=== PATIENT | female | born 1955 | race Caucasian/White ===

== ENCOUNTER 2016-11-01 09:47 | Outpatient (CLI) | payer MEDICAID | END 2016-11-01 09:48 | disposition home or self-care (01) | DX: E11.65 Type 2 diabetes mellitus with hyperglycemia (principal) ==

== ENCOUNTER 2017-07-12 08:00 | Outpatient (CLI) | payer MEDICAID ==
[2017-07-12 18:43] LABS: BASOPHILS % (AUTO) 0.4 %; EOSINOPHILS # (AUTO) 0.2 10^3/uL (0.0-0.7); EOSINOPHILS % (AUTO) 2.4 %; HCT - HEMATOCRIT 45.3 % (37.0-47.0); HGB - HEMOGLOBIN 14.8 g/dL (12.0-16.0); LYMPHOCYTES # (AUTO) 2.2 10^3/uL (1.5-3.5); LYMPHOCYTES % (AUTO) 29.8 %; MEAN CORPUSCULAR HEMOGLOBIN 31.3 pg (27.0-31.0); MEAN CORPUSCULAR HGB CONC 32.7 g/dL (32.0-36.0); MEAN CORPUSCULAR VOLUME 95.6 fL (81.0-99.0); MEAN PLATELET VOLUME 8.1 fL (7.9-10.8); MONOCYTES # (AUTO) 0.4 10^3/uL (0.0-1.0); MONOCYTES % (AUTO) 5.8 %; NEUTROPHILS # (AUTO) 4.6 10^3/uL (1.5-6.6); NEUTROPHILS % (AUTO) 61.6 %; NUCLEATED RED BLOOD CELLS AUTO 0.1 /100WBC; RED BLOOD COUNT 4.74 10^6/uL (4.20-5.40); RED CELL DISTRIBUTION WIDTH 14.1 % (12.0-15.0); UNCORRECTED WHITE BLOOD COUNT 7.5 x10^3/uL; WHITE BLOOD COUNT 7.5 x10^3/uL (4.8-10.8)
[2017-07-12 19:06] LABS: ALBUMIN/GLOBULIN RATIO 1.3 (1.0-2.2); BILIRUBIN,TOTAL 0.5 mg/dL (0.2-1.0); BUN - BLOOD UREA NITROGEN 9 mg/dL (6-20); CALCIUM 9.2 mg/dL (8.5-10.3); CARBON DIOXIDE - CO2 26 mmol/L (21-32); CHLORIDE 98 mmol/L (101-111); CHOL/HDL RATIO 5.7 (<4.4); CHOLESTEROL 217 mg/dL; CREATININE 0.8 mg/dL (0.4-1.0); GFR - MDRD 73 (>89); GLUCOSE 318 mg/dL (70-100); HDL CHOLESTEROL 38 mg/dL; LDL/HDL RATIO 3.4 (<4.4); POTASSIUM 3.7 mmol/L (3.5-5.0); SODIUM 134 mmol/L (135-145); TRIGLYCERIDES 257 mg/dL; VLDL CHOLESTEROL 51 mg/dL
== END 2017-07-12 08:01 | disposition home or self-care (01) ==
LOC: LAB.N 08:00
PROVIDERS: ATTEND Nurse Practitioner Gerontology
DX: E11.65 Type 2 diabetes mellitus with hyperglycemia (principal); E78.5 Hyperlipidemia, unspecified; E03.9 Hypothyroidism, unspecified; I10 Essential (primary) hypertension; K74.60 Unspecified cirrhosis of liver
CPT/HCPCS: 36415; 80050; 80061

== ENCOUNTER 2017-10-29 14:56 | Outpatient (CLI) | payer MEDICAID ==
--- NOTE | 2017-10-30 09:06 | XRAY Report ---
TWO VIEW LEFT SHOULDER: 10/29/2017 CLINICAL INDICATION: Pain. FINDINGS: Frontal and scapular Y views of the left shoulder demonstrate no evidence of acute fracture or dislocation. Mild degenerative changes are present, with small osteophytes. No radiopaque foreign body is seen in the soft tissues. IMPRESSION: MILD LEFT SHOULDER OSTEOARTHRITIS. TD: 10/30/2017 09:05
== END 2017-10-29 14:57 | disposition home or self-care (01) ==
LOC: DI.N 14:56
PROVIDERS: ATTEND Nurse Practitioner Gerontology
DX: M19.012 Primary osteoarthritis, left shoulder (principal)

== ENCOUNTER 2017-12-28 12:18 | Emergency (ER) | payer MEDICAID ==
--- NOTE | 2017-12-28 14:16 | ED Physician Documentation ---
History of Present Illness - Stated complaint Stated Complaint: R MIDDLE TOE PX/SWELLING - Chief complaint Chief Complaint: Ext Problem - History obtained from History obtained from: Patient - History of Present Illness Timing: How many weeks ago (1) Pain level max: 8 Pain level now: 8 Improved by: nothing Worsened by: palpation, movement - Additonal information Additional information: Patient is a 62-year-old female who presents to the emergency department with redness and swelling to the right third toe. Has an appointment with podiatry later this week to have the toenail taken care of. Has noticed increased swelling and pain over the past few days. No fevers. She is diabetic. 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 - Present Medications Home Medications: Ambulatory Orders Medication Instructions Recorded Confirmed Albuterol Sulfate [Ventolin Hfa] 18 gm IH DAILY 03/26/13 01/07/15 Azithromycin [Zithromax] 250 mg PO DAILY #6 tablet 03/26/13 01/07/15 Gabapentin [Gralise] 1 each PO DAILY 03/26/13 01/07/15 HYDROcod/ACETAM 5/325 [Vicodin 1 - 2 ea PO Q6H PRN #15 tablet 03/26/13 01/07/15 5/325] Promethazine [Phenergan] 25 - 50 mg PO Q6H PRN #10 tab 03/26/13 01/07/15 metFORMIN [Glucophage] 850 mg PO DAILY 03/26/13 01/07/15 predniSONE [Deltasone] 40 mg PO DAILY 5 Days tablet 03/26/13 01/07/15 predniSONE [Deltasone] 40 mg PO DAILY 5 Days tablet 01/07/15 Albuterol Sulfate [Proventil Hfa 1 - 2 puffs IH Q4H PRN #1 11/23/15 Inhaler] hfa.aer.ad Azithromycin [Zithromax] 250 mg PO DAILY #4 tablet 11/23/15 predniSONE [Deltasone] 60 mg PO DAILY 5 Days tablet 11/23/15 Azithromycin [Zithromax] 250 mg PO DAILY #6 tablet 07/21/16 Clotrimazole [Clotrimazole 3] 1 applic VG QPM #7 cream.appl 07/21/16 guaiFENesin/CODEINE [Robitussin AC] 5 - 10 ml PO Q6H PRN #120 udc 07/21/16 Clindamycin HCl [Clindamycin 300MG 300 mg PO Q6H #28 capsule 12/28/17 CAP] Hydrocodone/Acetaminophen 1 - 2 each PO Q6H PRN #10 tablet 12/28/17 [Hydrocodon-Acetaminophen 5-325] - Allergies Allergies/Adverse Reactions: Allergies Allergy/AdvReac Type Severity Reaction Status Date / Time ampicillin [Ampicillin] Allergy Intermediate Rash Verified 11/23/15 13:14 morphine Allergy Intermediate Rash Verified 11/23/15 13:14 acetaminophen [From Percocet] Allergy Rash Verified 11/23/15 13:14 oxycodone HCl * Allergy Rash Verified 11/23/15 13:14 [From Percocet] Penicillins Allergy Rash Verified 11/23/15 13:14 Sulfa (Sulfonamide Allergy Rash Verified 11/23/15 13:14 Antibiotics) tetracycline [Tetracycline] Allergy Rash Verified 11/23/15 13:14 - Social History Does the pt smoke?: Yes Smoking Status: Current every day smoker Does the pt drink ETOH?: Yes Does the pt have substance abuse?: No - Immunizations Immunizations are current?: Yes PD ED PE NORMAL - Vitals Vital signs reviewed: Yes - General General: Alert and oriented X 3 - Derm Derm: Warm and dry - Extremities Extremities: Other (R 3rd toe, mild cellulitis, distal lateral aspect with a 1x1cm abscess. NVI) - Neuro Neuro: Alert and oriented X 3 - Psych Psych: Normal mood, Normal affect Results - Vitals Vitals: Vital Signs - 24 hr 12/28/17 12/28/17 12:22 15:22 Temperature 36.5 C 36.6 C Heart Rate 107 H 90 Respiratory 20 20 Rate Blood Pressure 143/89 H 141/87 H O2 Saturation 97 97 Oxygen O2 Source Room air - Labs Labs: Microbiology 12/28/17 14:10 Wound Culture - Preliminary Abscess Procedures - Abscess I&D (location) R 3rd toe Preparation: Alcohol Incision: Incised with scalpel, Purulent drainage, Culture obtained Other: Pt tolerated well, Dressing applied, Antibiotic prescribed PD MEDICAL DECISION MAKING - ED course Complexity details: considered differential, d/w patient ED course: Patient is a 62-year-old female who presents to the emergency department with mild cellulitis of the right third toe as well as an abscess. This was incised and drained. Tolerated well. Will prescribe antibiotics and have her follow- up closely with her analytical consultant. Patient counseled regarding signs and symptoms for which I believe and urgent re-evaluation would be necessary. Patient with good understanding of and agreement to plan and is comfortable going home at this time This document was made in part using voice recognition software. While efforts are made to proofread this document, sound alike and grammatical errors may occur. - Sepsis Event Vital Signs: Vital Signs - 24 hr 12/28/17 12/28/17 12:22 15:22 Temperature 36.5 C 36.6 C Heart Rate 107 H 90 Respiratory 20 20 Rate Blood Pressure 143/89 H 141/87 H O2 Saturation 97 97 Oxygen O2 Source Room air Departure - Departure Disposition: 01 Home, Self Care Clinical Impression: Abscess Cellulitis Qualifiers: Site of cellulitis: extremity Site of cellulitis of extremity: toe Laterality: right Qualified Code(s): L03.031 - Cellulitis of right toe Condition: Good Instructions: ED Abscess IandD, ED Infec Skin Cellulitis Follow-Up: Kayla Betancourt ARNP [Primary Care Provider] - Barbara Palumbo DPM [Provider Admit Priv/Credential] - Within 3 Days (for wound check) Prescriptions: Clindamycin HCl [Clindamycin 300MG CAP] 300 mg PO Q6H #28 capsule Hydrocodone/Acetaminophen [Hydrocodon-Acetaminophen 5-325] 1 - 2 each PO Q6H PRN #10 tablet PRN Reason: pain Comments: Take all antibiotics until gone. Return if you worsen. Make sure to follow-up with Dr. Palumbo as instructed. Do not drink alcohol or drive while on narcotic pain medicine. Note that many narcotic pain relievers also contain tylenol/acetaminophen. Please ensure that your total dose of acetaminophen from all sources does not exceed 3 grams (3000mg) per day. You may constipated on this medication, take a stool softener such as "Colace" twice a day while you are on it. Also recommend a [id number] laxative such as senna or MiraLAX any day that you do not have a bowel movement. If you received narcotic pain medication in the emergency department, do not drive or operate machinery for the next 24 hours. Discharge Date/Time: 12/28/17 15:00
[2017-12-28 15:23] VITALS: BP 141/87
== END 2017-12-28 15:00 | disposition home or self-care (01) ==
LOC: ED 12:18
DX: L02.611 Cutaneous abscess of right foot (principal); L03.031 Cellulitis of right toe; I10 Essential (primary) hypertension; E11.9 Type 2 diabetes mellitus without complications; F17.200 Nicotine dependence, unspecified, uncomplicated; Z79.4 Long term (current) use of insulin
CPT/HCPCS: 10060; 87070; 87077; 87181; 87205; 99283

== ENCOUNTER 2018-02-12 09:56 | Outpatient (CLI) | payer MEDICAID ==
[2018-02-12 12:29] LABS: BASOPHILS % (AUTO) 0.4 %; EOSINOPHILS # (AUTO) 0.2 10^3/uL (0.0-0.7); EOSINOPHILS % (AUTO) 1.9 %; HGB - HEMOGLOBIN 14.9 g/dL (12.0-16.0); LYMPHOCYTES # (AUTO) 2.7 10^3/uL (1.5-3.5); LYMPHOCYTES % (AUTO) 25.1 %; MEAN CORPUSCULAR HEMOGLOBIN 31.5 pg (27.0-31.0); MEAN CORPUSCULAR HGB CONC 33.3 g/dL (32.0-36.0); MEAN CORPUSCULAR VOLUME 94.7 fL (81.0-99.0); MEAN PLATELET VOLUME 7.7 fL (7.9-10.8); MONOCYTES # (AUTO) 0.5 10^3/uL (0.0-1.0); MONOCYTES % (AUTO) 4.6 %; NEUTROPHILS # (AUTO) 7.4 10^3/uL (1.5-6.6); PLT - PLATELET COUNT 239 10^3/uL (130-450); RED BLOOD COUNT 4.72 10^6/uL (4.20-5.40); RED CELL DISTRIBUTION WIDTH 13.8 % (12.0-15.0); WHITE BLOOD COUNT 10.8 x10^3/uL (4.8-10.8)
[2018-02-12 13:35] LABS: HB2 TOTAL 15.7 g/dL; HEMOGLOBIN A1C 1.29 g/dL; HEMOGLOBIN A1C % 9.7 % (4.6-6.2)
[2018-02-12 14:20] LABS: ALBUMIN 3.8 g/dL (3.2-5.5); ALBUMIN/GLOBULIN RATIO 1.2 (1.0-2.2); ALKALINE PHOSPHATASE 79 IU/L (42-121); ALT ALANINE AMINOTRANSFERASE 22 IU/L (10-60); AST ASPARTATE AMINOTRANSFERASE 24 IU/L (10-42); BILIRUBIN,TOTAL 0.5 mg/dL (0.2-1.0); BUN - BLOOD UREA NITROGEN 12 mg/dL (6-20); CALCIUM 9.2 mg/dL (8.5-10.3); CARBON DIOXIDE - CO2 25 mmol/L (21-32); CHLORIDE 103 mmol/L (101-111); CHOL/HDL RATIO 5.4 (<4.4); CHOLESTEROL 236 mg/dL; CREATININE 0.8 mg/dL (0.4-1.0); GFR - MDRD 73 (>89); GLUCOSE 270 mg/dL (70-100); HDL CHOLESTEROL 44 mg/dL; LDL CHOLESTEROL,CALCULATED 140 mg/dL; LDL/HDL RATIO 3.2 (<4.4); SODIUM 137 mmol/L (135-145); TOTAL PROTEIN 7.1 g/dL (6.7-8.2); VLDL CHOLESTEROL 52 mg/dL
== END 2018-02-12 09:57 ==
LOC: LAB.N 09:56
PROVIDERS: ATTEND Nurse Practitioner Gerontology
DX: E11.9 Type 2 diabetes mellitus without complications (principal); E78.5 Hyperlipidemia, unspecified; E03.9 Hypothyroidism, unspecified; I10 Essential (primary) hypertension
CPT/HCPCS: 36415; 80050; 80061; 83036; 83721

== ENCOUNTER 2018-03-30 16:27 | Emergency (ER) | payer MEDICAID ==
--- NOTE | 2018-03-30 16:47 | ED Physician Documentation ---
PD HPI LOWER EXT INJURY - Stated complaint Stated Complaint: BODY PX - Chief complaint Chief Complaint: General - History obtained from History obtained from: Patient - History of Present Illness PD HPI LOW EXT INJURY LOCATION: Left, Buttock, Thigh, Calf Type of injury: No: Fall, Twist Timing - onset: Last night (onset of pain left lateral leg down to foot which has worsened last night. No change with movement nor position. Thigh is tender. No swelling of leg.), Yesterday Timing - details: Abrupt onset, Still present Worsened by: Palpating. No: Moving Associated symptoms: No: Weakness, Numbness, Discolored Similar symptoms before: Has not had sx before Review of Systems Constitutional: reports: Myalgias, Fatigue (feeling of myalgias and general fatigue started yesterday as well). 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 - Present Medications Home Medications: Ambulatory Orders Medication Instructions Recorded Confirmed Albuterol Sulfate [Ventolin Hfa] 18 gm IH DAILY 03/26/13 03/30/18 Gabapentin [Gralise] 1 each PO DAILY 03/26/13 03/30/18 metFORMIN [Glucophage] 850 mg PO DAILY 03/26/13 03/30/18 Albuterol Sulfate [Proventil Hfa 1 - 2 puffs IH Q4H PRN #1 11/23/15 03/30/18 Inhaler] hfa.aer.ad Acyclovir 400 mg PO 5XD #35 tablet 03/30/18 Amitriptyline [Elavil] 25 mg PO HS #20 tablet 03/30/18 HYDROcod/ACETAM 5/325 [[place] 5/325] 1 tab PO Q6H PRN #15 tablet 03/30/18 Losartan Potassium 1 tab PO DAILY 09/09/18 09/09/18 Naproxen 375 mg PO BID #20 tablet 03/30/18 - Allergies Allergies/Adverse Reactions: Allergies Allergy/AdvReac Type Severity Reaction Status Date / Time ampicillin [Ampicillin] Allergy Intermediate Rash Verified 03/30/18 16:49 morphine Allergy Intermediate Rash Verified 03/30/18 16:49 acetaminophen [From Percocet] Allergy Rash Verified 03/30/18 16:49 oxycodone HCl * Allergy Rash Verified 03/30/18 16:49 [From Percocet] Penicillins Allergy Rash Verified 03/30/18 16:49 Sulfa (Sulfonamide Allergy Rash Verified 03/30/18 16:49 Antibiotics) tetracycline [Tetracycline] Allergy Rash Verified 03/30/18 16:49 - Social History Does the pt smoke?: Yes Smoking Status: Current every day smoker Does the pt drink ETOH?: Yes Does the pt have substance abuse?: No - Immunizations Immunizations are current?: Yes - POLST Patient has POLST: No PD ED PE NORMAL - Vitals Vital signs reviewed: Yes - General General: Alert and oriented X 3, Well developed/nourished - Cardiac Cardiac: RRR, No murmur - Respiratory Respiratory: Clear bilaterally - Abdomen Abdomen: Soft, Non tender - Back Back: No CVA TTP, No spinal TTP, Other (tender left lateral lumbar area to palpation and tender lateral gluteal and lateral thigh, down to anterolateral lower leg. No rash nor sores. Motor use in leg is good. Thigh hurts with pressure and even light touch. ) - Derm Derm: Normal color, Warm and dry, No rash - Extremities Extremities: No edema, No calf tenderness / cord - Neuro Neuro: Alert and oriented X 3, No motor deficit, No sensory deficit, Normal speech Results - Vitals Vitals: Vital Signs - 24 hr 03/30/18 03/30/18 16:37 18:05 Temperature 36.0 C L 36.4 C L Heart Rate 89 96 Respiratory 18 20 Rate Blood Pressure 148/82 H 141/90 H O2 Saturation 98 98 Oxygen O2 Source Room air PD MEDICAL DECISION MAKING - ED course Complexity details: considered differential (she has pain and skin sensitivity along a dermatomal line concerning for early shingles vs neuropathy. She has had it couple days, so will treat with acyclovir for few days anyway and can d/ c it if no rash appears. ), d/w patient - Sepsis Event Vital Signs: Vital Signs - 24 hr 03/30/18 03/30/18 16:37 18:05 Temperature 36.0 C L 36.4 C L Heart Rate 89 96 Respiratory 18 20 Rate Blood Pressure 148/82 H 141/90 H O2 Saturation 98 98 Oxygen O2 Source Room air Departure - Departure Disposition: 01 Home, Self Care Clinical Impression: Left leg pain Neuropathic pain, leg Qualifiers: Laterality: left Qualified Code(s): G57.92 - Unspecified mononeuropathy of left lower limb Condition: Stable Record reviewed to determine appropriate education?: Yes Follow-Up: Kayla Betancourt ARNP [Primary Care Provider] - Prescriptions: Acyclovir 400 mg PO 5XD #35 tablet Amitriptyline [Elavil] 25 mg PO HS #20 tablet HYDROcod/ACETAM 5/325 [[place] 5/325] 1 tab PO Q6H PRN #15 tablet PRN Reason: Pain Naproxen 375 mg PO BID #20 tablet Comments: The pain you are having in the leg sounds more like a nerve pain (neuropathy) rather than a "pinched nerve" in the back. This is based on the sensitivity you have along the nerve line and the feeling of general aches that you have. I am suspicious for early shingles. I would treated with naproxen anti- inflammatory twice daily and Elavil for nerve irritation nightly. Add hydrocodone as needed for pain. I would also start acyclovir for possible shingles for the next 2-3 days and see if you do develop a rash that would be consistent with it. Follow-up with your primary care in the next few days, call tomorrow for an appointment. Return if worsening. Discharge Date/Time: 03/30/18 18:05
[2018-03-30] MEDS ORDERED: ACYCLOVIR 200 MG CAPSULE PO STA (17:10)
[2018-03-30] MEDS ORDERED: DEXAMETHASONE 10 MG/ML VIAL PO STA (17:10)
[2018-03-30] MEDS ORDERED: HYDROcod/ACETAM 5/325 MG TABLET PO STA (17:10)
[2018-03-30] MEDS ORDERED: NAPROXEN 250 MG TABLET PO STA (17:10)
[2018-03-30] MEDS ORDERED: HYDROcod/ACET 5/325 Prepack 4 PO STA (17:52)
[2018-03-30 18:06] VITALS: BP 141/90
== END 2018-03-30 18:05 | disposition home or self-care (01) ==
LOC: ED 16:27
DX: G57.92 Unspecified mononeuropathy of left lower limb (principal); I10 Essential (primary) hypertension; E11.9 Type 2 diabetes mellitus without complications; F17.200 Nicotine dependence, unspecified, uncomplicated; Z79.84 Long term (current) use of oral hypoglycemic drugs
CPT/HCPCS: 99283; A9270

== ENCOUNTER 2018-06-29 16:47 | Emergency (ER) | payer MEDICAID ==
[2018-06-29 16:56] VITALS: BP 146/79
--- NOTE | 2018-06-29 17:20 | ED Physician Documentation ---
PD HPI LOWER EXT INJURY - Stated complaint Stated Complaint: RIGHT FOOT PAIN, DROPPED A CUTTING BOARD ON IT - Chief complaint Chief Complaint: Ext Problem - History obtained from History obtained from: Patient, Family - History of Present Illness PD HPI LOW EXT INJURY LOCATION: Right, Toe (middle) Type of injury: Blunt / blow Where injury occurred: Home Timing - onset: Last night Timing - duration: Hours Timing - details: Abrupt onset, Still present Improved by: Rest, Immobilization Worsened by: Moving, Palpating Associated symptoms: Swelling, Discolored. No: Weakness, Numbness Contributing factors: No: Anticoagulated Similar symptoms before: Diagnosis (infection in the toe) Recently seen: Not recently seen - Additional information Additional information: 63 y/o female diabetic with peripheral neuropathy and toe ulcer has dropped a wooden cutting board on her foot last night and she has swelling and pain associated with this and she is worried about a fracture and she is concerned about the toe as it appears there is a blister that is draining today. She had an infection in that toe that took months to heal. Review of Systems Constitutional: denies: Fever, Chills Eyes: denies: Decreased vision Ears: denies: Ear pain Nose: denies: Congestion Throat: denies: Sore throat Respiratory: denies: Cough GI: denies: Nausea : denies: Dysuria, Frequency Skin: denies: Rash Musculoskeletal: reports: Extremity pain, Extremity swelling, Pain with weight bearing. 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 - Present Medications Home Medications: Ambulatory Orders Medication Instructions Recorded Confirmed Gabapentin [Gralise] 1 each PO DAILY 03/26/13 03/30/18 metFORMIN [Glucophage] 850 mg PO DAILY 03/26/13 03/30/18 RX: Albuterol Sulfate [Proventil 1 - 2 puffs IH Q4H PRN #1 11/23/15 03/30/18 Hfa Inhaler] hfa.aer.ad Cephalexin [Keflex] 500 mg PO QID #28 capsule 06/29/18 RX: Lisinopril 10 mg PO 12/09/18 12/09/18 - Allergies Allergies/Adverse Reactions: Allergies Allergy/AdvReac Type Severity Reaction Status Date / Time ampicillin [Ampicillin] Allergy Intermediate Rash Verified 03/30/18 16:49 morphine Allergy Intermediate Rash Verified 03/30/18 16:49 acetaminophen [From Percocet] Allergy Rash Verified 03/30/18 16:49 oxycodone HCl * Allergy Rash Verified 03/30/18 16:49 [From Percocet] Penicillins Allergy Rash Verified 03/30/18 16:49 Sulfa (Sulfonamide Allergy Rash Verified 03/30/18 16:49 Antibiotics) tetracycline [Tetracycline] Allergy Rash Verified 06/29/18 16:56 - Social History Does the pt smoke?: Yes Smoking Status: Current every day smoker Does the pt drink ETOH?: Yes Does the pt have substance abuse?: No - Immunizations Immunizations are current?: Yes - POLST Patient has POLST: No PD ED PE NORMAL - Vitals Vital signs reviewed: Yes (tachy and hypertensive ) - General General: Alert and oriented X 3, No acute distress, Well developed/nourished - HEENT HEENT: Atraumatic, PERRL - Respiratory Respiratory: No respiratory distress - Derm Derm: Normal color, Warm and dry, No rash - Extremities Extremities: Other (There is swelling, erythema and point tenderness to the right middle toe and there is a blister on the tip of the toe draining pus and this is cultured. 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 Radiology: Prelim report reviewed (Pression: 1. Soft tissue swelling without acute fracture or subluxation.), EMP read indepedently, See rad report PD MEDICAL DECISION MAKING - ED course Complexity details: reviewed old records, reviewed results, re-evaluated patient, considered differential, d/w patient, d/w family ED course: 63 y/o female with a history of neuropathy has dropped a wooden cutting board on her foot and has swelling and point tenderness over the area without a fracture identified on x-ray. She has a blister on this toe and this looks infected today. She has had this problem previously and has been on Keflex for this. She will need to be on antibiotic again and she has a long allergy list and so keflex it is again. Departure - Departure Disposition: 01 Home, Self Care Clinical Impression: Infected blister of third toe of right foot, Contusion of foot including toes Condition: Stable Instructions: ED Abscess IandD, ED Contusion Foot Follow-Up: Kayla Betancourt ARNP [Primary Care Provider] - Prescriptions: Cephalexin [Keflex] 500 mg PO QID #28 capsule
[2018-06-29] MEDS ORDERED: CEPHALEXIN 250 MG Prepack 8 PO ONE (17:35)
--- NOTE | 2018-06-29 17:42 | XRAY Report ---
Reason: contusion dorsal Procedure Date: 06/29/2018 Accession Number: [id number] / [id number] Procedure: XR - Foot 3 View RT CPT Code: FULL RESULT: EXAM: RIGHT FOOT RADIOGRAPHY EXAM DATE: 06/29/2018 05:15 PM. CLINICAL HISTORY: Contusion dorsal. COMPARISON: None. TECHNIQUE: 3 views. FINDINGS: Bones: Negative for acute fracture. There is moderate spurring of the proximal lateral fifth metatarsal. Joints: Alignment and joint spaces preserved. Soft Tissues: There is soft tissue swelling of the dorsal foot. IMPRESSION: 1. Soft tissue swelling without acute fracture or subluxation. RADIA
[2018-06-29] MEDS ORDERED: HYDROcod/ACET 5/325 Prepack 4 PO STA (17:46)
== END 2018-06-29 18:06 | disposition home or self-care (01) ==
LOC: ED 16:47
DX: S90.31XA Contusion of right foot, initial encounter (principal); S90.121A Contusion of right lesser toe(s) without damage to nail, initial encounter; W20.8XXA Other cause of strike by thrown, projected or falling object, initial encounter; Y92.009 Unspecified place in unspecified non-institutional (private) residence as the place of occurrence of the external cause; L08.89 Other specified local infections of the skin and subcutaneous tissue; E11.42 Type 2 diabetes mellitus with diabetic polyneuropathy; I10 Essential (primary) hypertension; F17.200 Nicotine dependence, unspecified, uncomplicated; Z79.84 Long term (current) use of oral hypoglycemic drugs
CPT/HCPCS: 87070; 87205; 99283

== ENCOUNTER 2018-09-12 12:54 | Emergency (ER) | payer MEDICAID ==
[2018-09-12] MEDS ORDERED: IBUPROFEN 800 MG TABLET PO STA (13:23)
[2018-09-12] MEDS ORDERED: cephALEXin 250 MG CAPSULE PO STA (14:06)
--- NOTE | 2018-09-12 14:14 | ED Physician Documentation ---
PD HPI HEENT - Stated complaint Stated Complaint: WEAKNESS,THROAT PAIN - Chief complaint Chief Complaint: General - History obtained from History obtained from: Patient, Family (daughter) - History of Present Illness Timing - onset: How many weeks ago (1) Timing - duration: Weeks (1) Timing - details: Still present Location: Throat Worsens: [place] Associated symptoms: Swollen nodes, Headache, Other (myalgias) Similar symptoms before: Has not had sx before - Additional information Additional information: The patient is a 63-year-old diabetic female who presents with a sore throat that started 1 week ago and has been persistent since that time. She reports associated headache, myalgias, occasional cough, and nausea. She also reports dysuria. She is uncertain about fever. She denies abdominal pain, vomiting, or chest pain. Review of Systems Constitutional: reports: Myalgias, Fatigue Nose: denies: Congestion Throat: reports: Sore throat Cardiac: denies: Chest pain / pressure Respiratory: reports: Cough (occasional). denies: Dyspnea GI: reports: Nausea. denies: Abdominal Pain, Vomiting : reports: Dysuria Skin: denies: Rash Musculoskeletal: denies: Back pain Neurologic: reports: Headache. 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 - Present Medications Home Medications: Ambulatory Orders Medication Instructions Recorded Confirmed Gabapentin [Gralise] 1 each PO DAILY 03/26/13 03/30/18 metFORMIN [Glucophage] 850 mg PO DAILY 03/26/13 03/30/18 Albuterol Sulfate [Proventil Hfa 1 - 2 puffs IH Q4H PRN #1 11/23/15 03/30/18 Inhaler] [email or web address] Cephalexin [Keflex] 500 mg PO QID #28 capsule 06/29/18 Lisinopril 10 mg PO 06/29/18 06/29/18 cephALEXin [Cephalexin] 500 mg PO TID #20 tablet 09/12/18 - Allergies Allergies/Adverse Reactions: Allergies Allergy/AdvReac Type Severity Reaction Status Date / Time ampicillin [Ampicillin] Allergy Intermediate Rash Verified 03/30/18 16:49 morphine Allergy Intermediate Rash Verified 03/30/18 16:49 acetaminophen [From Percocet] Allergy Rash Verified 03/30/18 16:49 oxycodone HCl * Allergy Rash Verified 03/30/18 16:49 [From Percocet] Penicillins Allergy Rash Verified 03/30/18 16:49 Sulfa (Sulfonamide Allergy Rash Verified 03/30/18 16:49 Antibiotics) tetracycline [Tetracycline] Allergy Rash Verified 06/29/18 16:56 - Social History Does the pt smoke?: Yes Smoking Status: Current every day smoker Does the pt drink ETOH?: Yes Does the pt have substance abuse?: No - Immunizations Immunizations are current?: Yes - POLST Patient has POLST: No PD ED PE NORMAL - Vitals Vital signs reviewed: Yes (Systolic hypertension.) - General General: Alert and oriented X 3, Well developed/nourished, Other (Appears fatigued.) - HEENT HEENT: Atraumatic, Other (Erythematous oropharynx, without exudates.) - Neck Neck: Supple, no meningeal sign, Other (Mildly enlarged anterior cervical nodes bilaterally.) - Cardiac Cardiac: RRR - Respiratory Respiratory: No respiratory distress, Clear bilaterally - Abdomen Abdomen: Soft, Non tender - Back Back: No CVA TTP - Derm Derm: No rash - Extremities Extremities: No edema, No calf tenderness / cord - Neuro Neuro: Alert and oriented X 3, No motor deficit, Normal speech Results - Vitals Vitals: Vital Signs - 24 hr 09/12/18 09/12/18 13:10 14:18 Temperature 36.2 C L 36.4 C L Heart Rate 112 H 102 H Respiratory 16 18 Rate Blood Pressure 147/78 H 113/59 L O2 Saturation 100 100 Oxygen O2 Source Room air - Labs Labs: Laboratory Tests 09/12/18 09/12/18 09/12/18 13:09 13:20 13:50 POC Whole Bld Glucose 220 H Urine Color YELLOW Urine Clarity HAZY Urine pH 6.0 Ur Specific [place] 1.025 Urine Protein 100 H Urine Glucose (UA) NEGATIVE Urine Ketones NEGATIVE Urine Occult Blood MODERATE H Urine Nitrite POSITIVE H Urine Bilirubin NEGATIVE Urine Urobilinogen 0.2 (NORMAL) Ur Leukocyte Esterase MODERATE H Urine RBC 0-5 Urine WBC >25 H Ur Squamous Epith Cells NONE SEEN Urine Bacteria Rare Ur Microscopic Review INDICATED Urine Culture Comments INDICATED Group A Strep Rapid POSITIVE H PD MEDICAL DECISION MAKING - ED course Complexity details: reviewed results, re-evaluated patient, considered differential, d/w patient, d/w family ED course: The patient's presentation is significant for acute streptococcal pharyngitis, which is confirmed with a positive rapid strep screen. Her presentation does not suggest meningitis, peritonsillar abscess, or pneumonia. In addition her urinalysis is positive for UTI, with greater than 25 white cells per high-powered field and positive bacteriuria. Culture and sensitivity is pending. Treatment in the emergency department included administration of ibuprofen 800 mg orally, and cephalexin 500 mg orally. She is being discharged with a prescription for cephalexin. This should cover both the strep pharyngitis and the urinary tract infection. I discussed with her and her daughter the diagnosis, antibiotic treatment and outpatient follow-up, as well as potentially worrisome signs or symptoms that should prompt reevaluation in the emergency department. Departure - Departure Disposition: 01 Home, Self Care Clinical Impression: Streptococcal pharyngitis Diabetes mellitus with hyperglycemia Qualifiers: Diabetes mellitus type: type 2 Diabetes mellitus fci insulin use: without terminologist use Qualified Code(s): E11.65 - Type 2 diabetes mellitus with hyperglycemia UTI (urinary tract infection) Qualifiers: Urinary tract infection type: acute cystitis Hematuria presence: without hematuria Qualified Code(s): N30.00 - Acute cystitis without hematuria Condition: Stable Instructions: ED Strep Pharyngitis Conf Follow-Up: Kayla Betancourt ARNP [Primary Care Provider] - Prescriptions: cephALEXin [Cephalexin] 500 mg PO TID #20 tablet Comments: Drink plenty of fluids, and gargle with cool liquids. Take cephalexin 3 times daily as prescribed. You can use Tylenol or ibuprofen if needed for fever or discomfort. Follow-up with your primary physician within 1-2 weeks. Call to schedule an appointment. Return to the emergency department if you develop increasing difficulty swallowing, fever with shaking chills, or otherwise worsening symptoms. Discharge Date/Time: 09/12/18 14:29
[2018-09-12 14:19] VITALS: BP 113/59
[2018-09-12 14:21] LABS: BILIRUBIN,URINE NEGATIVE (NEGATIVE); GLUCOSE, URINE (UA) NEGATIVE (NEGATIVE); KETONES,URINE (UA) NEGATIVE (NEGATIVE); LEUKOCYTE ESTERASE, URINE MODERATE (NEGATIVE); NITRITE,URINE POSITIVE (NEGATIVE); OCCULT BLOOD,URINE MODERATE (NEGATIVE); PROTEIN,URINE 100 mg/dL (NEGATIVE); UROBILINOGEN,URINE 0.2 (NORMAL) E.U./dL (NORMAL)
[2018-09-12 14:23] LABS: CLARITY,URINE HAZY (CLEAR)
[2018-09-12 14:29] LABS: BACTERIA,URINE Rare /HPF (None Seen); RBC,URINE 0-5 /HPF (0-5); SQUAMOUS EPITHELIAL CELL,UR NONE SEEN (<= Few)
== END 2018-09-12 14:29 | disposition home or self-care (01) ==
LOC: ED 12:54
DX: J02.0 Streptococcal pharyngitis (principal); E11.65 Type 2 diabetes mellitus with hyperglycemia; N30.00 Acute cystitis without hematuria; E03.9 Hypothyroidism, unspecified; Z79.84 Long term (current) use of oral hypoglycemic drugs
CPT/HCPCS: 81001; 87086; 87181; 87430; 99283; A9270; 81003

== ENCOUNTER 2018-09-15 17:29 | Inpatient (IN) | payer MEDICAID ==
[2018-09-15 18:39] LABS: BILIRUBIN,URINE NEGATIVE (NEGATIVE); GLUCOSE, URINE (UA) 500 mg/dL (NEGATIVE); KETONES,URINE (UA) TRACE mg/dL (NEGATIVE); LEUKOCYTE ESTERASE, URINE SMALL (NEGATIVE); NITRITE,URINE NEGATIVE (NEGATIVE); OCCULT BLOOD,URINE LARGE (NEGATIVE); PH,URINE 5.5 PH (5.0-7.5); PROTEIN,URINE 100 mg/dL (NEGATIVE); UROBILINOGEN,URINE 0.2 (NORMAL) E.U./dL (NORMAL)
[2018-09-15 18:41] LABS: CLARITY,URINE CLOUDY (CLEAR)
[2018-09-15] MEDS ORDERED: SODIUM CHLORIDE 0.9% 1,000 ML IV ONE (18:43)
--- NOTE | 2018-09-15 18:44 | ED Physician Documentation ---
History of Present Illness - Stated complaint Stated Complaint: PURPLE LEGS BILAT - Chief complaint Chief Complaint: Neuro - History obtained from History obtained from: Patient, Family - History of Present Illness Timing: Other (This is a 63-year-old woman with history of type 2 diabetes on oral medications who was seen here a few days ago with sore throat and urinary tract infection and put on Keflex. She notes that over the weekend she has had a very poor appetite and feels weak and dizzy and the daughter says she needs help with ambulation. She is noticed over the last couple of days that her lower extremity's have been cool and mottled.) Review of Systems Constitutional: reports: Chills. 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 - Present Medications Home Medications: Ambulatory Orders Medication Instructions Recorded Confirmed Gabapentin [Gralise] 1 each PO DAILY 03/26/13 03/30/18 metFORMIN [Glucophage] 1,000 mg PO BID 03/26/13 03/30/18 Albuterol Sulfate [Proventil Hfa 1 - 2 puffs IH Q4H PRN #1 11/23/15 03/30/18 Inhaler] [email or web address] Cephalexin [Keflex] 500 mg PO QID #28 capsule 06/29/18 Lisinopril 10 mg PO 06/29/18 06/29/18 cephALEXin [Cephalexin] 500 mg PO TID #20 tablet 09/12/18 Atorvastatin [Lipitor] 1 tab ORAL DAILY 09/15/18 09/15/18 - Allergies Allergies/Adverse Reactions: Allergies Allergy/AdvReac Type Severity Reaction Status Date / Time ampicillin [Ampicillin] Allergy Intermediate Rash Verified 09/15/18 19:13 morphine Allergy Intermediate Rash Verified 09/15/18 19:13 acetaminophen [From Percocet] Allergy Rash Verified 09/15/18 19:13 ciprofloxacin [From Cipro] Allergy Itching Verified 09/15/18 19:19 clindamycin Allergy Hives Verified 09/15/18 19:19 erythromycin base Allergy Nausea Verified 09/15/18 19:13 [From E-Mycin] lisinopril Allergy Edema Verified 09/15/18 19:19 oxycodone HCl * Allergy Rash Verified 09/15/18 19:13 [From Percocet] Penicillins Allergy Rash Verified 09/15/18 19:13 Sulfa (Sulfonamide Allergy Rash Verified 09/15/18 19:13 Antibiotics) tetracycline [Tetracycline] Allergy Rash Verified 09/15/18 19:13 - Social History Does the pt smoke?: Yes Smoking Status: Current every day smoker Does the pt drink ETOH?: Yes Does the pt have substance abuse?: No - Family History Family history: reports: Non contributory - Immunizations Immunizations are current?: Yes - POLST Patient has POLST: No PD ED PE NORMAL - Vitals Vital signs reviewed: Yes - General General: Alert and oriented X 3, No acute distress - HEENT HEENT: PERRL, EOMI, Pharynx benign - Neck Neck: Supple, no meningeal sign, No bony TTP - Cardiac Cardiac: RRR, No murmur - Respiratory Respiratory: No respiratory distress, Clear bilaterally - Abdomen Abdomen: Soft, Non tender - Back Back: Other (Mild right CVA tenderness) - Extremities Extremities: Other (The lower extremity's are cool and mottled, I cannot appreciate pedal pulses bilaterally but the last the nurse to Doppler them. She does have decent cap refill.) - Neuro Neuro: Alert and oriented X 3, Normal speech - Psych Psych: Normal mood, Normal affect Results - Vitals Vitals: Vital Signs - 24 hr 09/15/18 18:06 Temperature 36.3 C L Heart Rate 99 Respiratory 18 Rate Blood Pressure 124/59 L O2 Saturation 94 Oxygen O2 Source Room air - Labs Labs: Laboratory Tests 09/15/18 09/15/18 09/15/18 18:35 18:58 18:58 WBC 26.8 H RBC 4.03 L Hgb 12.2 Hct 37.4 MCV 92.9 MCH 30.4 MCHC 32.7 RDW 14.4 Plt Count 256 MPV 8.0 Neut # (Auto) Not Reportable Lymph # (Auto) Not Reportable [place] # (Auto) Not Reportable Eos # (Auto) Not Reportable Baso # (Auto) Not Reportable Absolute Nucleated RBC Not Reportable Total Counted 100 Band Neuts % (Manual) 13 H Abnorm Lymph % (Manual) 0 Nucleated RBC % Not Reportable Neutrophils # (Manual) 24.7 H Lymphocytes # (Manual) 0.8 L Monocytes # (Manual) 1.3 H Eosinophils # (Manual) 0.0 Basophils # (Manual) 0.0 Differential Comment MANUAL DIFFERENTIAL Manual Slide Review Indicated WBC Morphology 2+ TOXIC GRANULATION Platelet Estimate NORMAL (130-450,000) Platelet Morphology NORMAL APPEARANCE RBC Morph Micro Appear NORMAL APPEARANCE Sodium 124 L Potassium 2.6 L Chloride 91 L Carbon Dioxide 22 Anion Gap 11.0 BUN 47 H Creatinine 2.8 H Estimated GFR (MDRD) 17 L Glucose 371 H Lactic Acid Calcium 8.3 L Total Bilirubin 0.8 AST 17 ALT 31 Alkaline Phosphatase 158 H Total Protein 7.1 Albumin 2.6 L Globulin 4.5 H Albumin/Globulin Ratio 0.6 L Lipase 277 H Urine Color DARK YELLOW Urine Clarity CLOUDY Urine pH 5.5 Ur Specific [place] 1.025 Urine Protein 100 H Urine Glucose (UA) 500 H Urine Ketones TRACE Urine Occult Blood LARGE H Urine Nitrite NEGATIVE Urine Bilirubin NEGATIVE Urine Urobilinogen 0.2 (NORMAL) Ur Leukocyte Esterase SMALL H Urine RBC 11-25 H Urine WBC >25 H Ur Squamous Epith Cells FEW Squamous Urine Bacteria Many H Ur Microscopic Review INDICATED Urine Culture Comments INDICATED 09/15/18 18:58 WBC RBC Hgb Hct MCV MCH MCHC RDW Plt Count MPV Neut # (Auto) Lymph # (Auto) [place] # (Auto) Eos # (Auto) Baso # (Auto) Absolute Nucleated RBC Total Counted Band Neuts % (Manual) Abnorm Lymph % (Manual) Nucleated RBC % Neutrophils # (Manual) Lymphocytes # (Manual) Monocytes # (Manual) Eosinophils # (Manual) Basophils # (Manual) Differential Comment Manual Slide Review WBC Morphology Platelet Estimate Platelet Morphology RBC Morph Micro Appear Sodium Potassium Chloride Carbon Dioxide Anion Gap BUN Creatinine Estimated GFR (MDRD) Glucose Lactic Acid 1.2 Calcium Total Bilirubin AST ALT Alkaline Phosphatase Total Protein Albumin Globulin Albumin/Globulin Ratio Lipase Urine Color Urine Clarity Urine pH Ur Specific [place] Urine Protein Urine Glucose (UA) Urine Ketones Urine Occult Blood Urine Nitrite Urine Bilirubin Urine Urobilinogen Ur Leukocyte Esterase Urine RBC Urine WBC Ur Squamous Epith Cells Urine Bacteria Ur Microscopic Review Urine Culture Comments PD MEDICAL DECISION MAKING - ED course ED course: This is a 63-year-old woman with diabetes who was seen here 3 days ago with a UTI and strep pharyngitis and put on Keflex. She grew out an organism that was sensitive to most of the cephalosporins but noted to be intermediate to cephalothin. She was cultured up and noted to have a significant white count with left shift, acute renal failure, hyponatremia and hypokalemia. Her lactate and bicarb are reassuring. She was administered IV Rocephin and a small dose of insulin. I spoke with Dr. Rosenberg for admission at 7:35 PM. He requested a lower extremity Doppler given her poor perfusion, but we were able to Doppler pedal pulses. This was ordered. - Critical Care Time(min): 42 Time Includes: Direct patient care, Review records, Reassess patient, Document care, Coordinate care, Medical consult, Family consult for tx dec Data interpretation: Labs, Pulse ox Procedures included in critical care time: Peripheral IV Departure - Departure Disposition: 66 [facility] DC/Xfer Clinical Impression: Hypokalemia UTI (urinary tract infection) Qualifiers: Urinary tract infection type: site unspecified Hematuria presence: with hematuria Qualified Code(s): N39.0 - Urinary tract infection, site not specified; R31.9 - Hematuria, unspecified Diabetes mellitus with hyperglycemia Qualifiers: Diabetes mellitus type: type 2 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 coli] ARF (acute renal failure) Qualifiers: Acute renal failure type: unspecified Qualified Code(s): N17.9 - Acute kidney failure, unspecified Condition: Stable
[2018-09-15 18:52] LABS: BACTERIA,URINE Many /HPF (None Seen); SQUAMOUS EPITHELIAL CELL,UR FEW Squamous (<= Few)
[2018-09-15 19:02] LABS: BASOPHILS % (AUTO) 0.3 %; EOSINOPHILS % (AUTO) 0.1 %; HGB - HEMOGLOBIN 12.2 g/dL (12.0-16.0); LYMPHOCYTES % (AUTO) 4.7 %; MEAN CORPUSCULAR HEMOGLOBIN 30.4 pg (27.0-31.0); MEAN CORPUSCULAR HGB CONC 32.7 g/dL (32.0-36.0); MEAN CORPUSCULAR VOLUME 92.9 fL (81.0-99.0); MONOCYTES % (AUTO) 2.8 %; NEUTROPHILS % (AUTO) 92.1 %; PLT - PLATELET COUNT 256 10^3/uL (130-450); RED BLOOD COUNT 4.03 10^6/uL (4.20-5.40); RED CELL DISTRIBUTION WIDTH 14.4 % (12.0-15.0); WHITE BLOOD COUNT 26.8 x10^3/uL (4.8-10.8)
[2018-09-15 19:04] LABS: ABNORMAL LYMPHS % (MANUAL) 0 %
[2018-09-15] MEDS ORDERED: cefTRIAXone 1 GM in SODIUM CHLORIDE 0.9% MINIBAG 100 ML IV STA (19:08)
[2018-09-15 19:17] LABS: BAND NEUTROPHILS % (MANUAL) 13 %; DIFFERENTIAL COMMENT MANUAL DIFFERENTIAL; LYMPHOCYTES # (MANUAL) 0.8 10^3/uL (1.5-3.5); LYMPHOCYTES % (MANUAL) 3 %; MONOCYTES # (MANUAL) 1.3 10^3/uL (0.0-1.0); NEUTROPHILS # (MANUAL) 24.7 10^3/uL (1.5-6.6); NEUTROPHILS % (MANUAL) 79 %; PLATELET ESTIMATE, MANUAL NORMAL (130-450,000) (NORMAL); PLATELET MORPHOLOGY NORMAL APPEARANCE (NORMAL); RBC MORPHOLOGY (MULTIPLE) NORMAL APPEARANCE (NORMAL)
[2018-09-15 19:18] LABS: ALBUMIN 2.6 g/dL (3.2-5.5); ALBUMIN/GLOBULIN RATIO 0.6 (1.0-2.2); BILIRUBIN,TOTAL 0.8 mg/dL (0.2-1.0); CALCIUM 8.3 mg/dL (8.5-10.3); CREATININE 2.8 mg/dL (0.4-1.0); TOTAL PROTEIN 7.1 g/dL (6.7-8.2)
[2018-09-15] MEDS ORDERED: POTASSIUM CHLOR 10 MEQ/100 ML 10 MEQ/100 ML BAG IV ONE (19:26)
[2018-09-15] MEDS ORDERED: POTASSIUM BICARB 25 MEQ TABLET PO STA (19:26)
[2018-09-15] MEDS ORDERED: LACTATED RINGERS 2,500 ML IV STA (19:26)
[2018-09-15] MEDS ORDERED: ONDANSETRON ODT 4 MG TABLET TL PRN (19:37)
[2018-09-15] MEDS ORDERED: ONDANSETRON 4 MG/2 ML VIAL IVP PRN (19:37)
[2018-09-15] MEDS ORDERED: D5NS W/20 MEQ KCL 1,000 ML IV SCH (20:00)
[2018-09-15] MEDS ORDERED: LACTATED RINGERS 1,000 ML IV SCH (20:00)
[2018-09-15 20:41] LABS: HB2 TOTAL 13.2 g/dL; HEMOGLOBIN A1C 1.04 g/dL; HEMOGLOBIN A1C % 9.4 % (4.6-6.2)
--- NOTE | 2018-09-15 21:20 | Ultrasound Report ---
Reason: poor perfusion BLE Procedure Date: 09/15/2018 Accession Number: [id number] / [id number] Procedure: US - Duplex Lwr Ext Arterial Bilat CPT Code: FULL RESULT: EXAM: Bilateral Lower Extremity Arterial Doppler Ultrasound EXAM DATE: 09/15/2018 08:20 PM. CLINICAL HISTORY: Poor perfusion bilateral lower extremity. Hypertension, smoking, diabetes. COMPARISON: None. TECHNIQUE: Real-time sonographic vascular imaging was performed by the teacher dramatics, utilizing color-flow, Doppler flow, and spectral analysis. Multiple electroplating sales representative static images were saved for review. FINDINGS: Right Leg: SERVER SECURITY ADMINISTRATOR: PSV 99 cm/sec. Triphasic waveform. PSFA: PSV 90 cm/sec. Triphasic waveform. MSFA: PSV 89 cm/sec. Triphasic waveform. DSFA: PSV 101 cm/sec. Triphasic waveform. PFA: PSV 84 cm/sec. Triphasic waveform. POP: PSV 59 cm/sec. Triphasic waveform. WILL: PSV 72 cm/sec. Biphasic waveform. DOPE POURER: PSV 65 cm/sec. Biphasic waveform. PER: PSV 56 cm/sec. Biphasic waveform. DPA: PSV 43 cm/sec. Biphasic waveform. Left Leg: SERVER SECURITY ADMINISTRATOR: PSV 109 cm/sec. Triphasic waveform. PSFA: PSV 86 cm/sec. Triphasic waveform. MSFA: PSV 78 cm/sec. Triphasic waveform. DSFA: PSV 70 cm/sec. Biphasic waveform. PFA: PSV 78 cm/sec. Biphasic waveform. POP: PSV 60 cm/sec. Biphasic/Triphasic waveform. WILL: PSV 108 cm/sec. Biphasic waveform. DOPE POURER: PSV 109 cm/sec. Biphasic/Triphasic waveform. PER: PSV 43 cm/sec. Biphasic waveform. DPA: PSV 36 cm/sec. Biphasic waveform. Technically difficult exam due to constant motion. IMPRESSION: No evidence for hemodynamically significant stenosis or occlusions. See above. RADIA
--- NOTE | 2018-09-15 21:52 | HISTORY & PHYSICAL EXAMINATION ---
Chief Complaint - Chief Complaint Chief Complaint: Weakness, dysuria, AMS History of Present Illness - Admitted From Admitted From:: ED - History Obtained From Records Reviewed: Yes History obtained from: ED staff, med records Exam Limitations: Poor historian, admits to meth use - History of Present Illness HPI Comment/Other: This is a 63-year-old woman with history of type 2 diabetes mellitus, CKD stage, 2, Diabetic neuropathy, HTN, hyperlipidemia who was in ED few days ago with sore throat and urinary tract infection and put on Keflex. She notes that over the weekend she has had a very poor appetite and feels weak and dizzy and the daughter says she needs help with ambulation. She is noticed over the last couple of days that her lower extremity's have been cool and mottled. Arterial US in Ed was unremarkable and she had doppler proven pulses BL to DP. Patient admits to using meth and her initial labs showed severe electrolyte d/o with K 2.6 cr 2.8 Na 124, glu 371, lipase 277, C02 22 was not in DKA, LFT's were normal w/o SOB or CP and was taking MFM, Lisinopril, neurontin previously. Ucx on 09/12/18 grew out e.coli with sensitivities to cehalosporins. Patient with allergies to PCN/Quinolones. Patient started on IVF's, rocephin and was HD stable with initial temp 36.3. Admitted for sepsis sec to UTI, severe dehydration and CHARLES as well as encephalopathy. History - Past Medical History Cardiovascular: reports: Hypertension Respiratory: reports: Asthma, Pneumonia Neuro: reports: None Endocrine/Autoimmune: reports: Type 2 diabetes, HyPOthyroidism GI: reports: Hiatal hernia CERTIFIED PHARMACIST ASSISTANT: reports: None : reports: None HEENT: reports: None Psych: reports: Depression Musculoskeletal: reports: Osteoarthritis Derm: reports: None MRSA Hx?: Yes - Past Surgical History General: reports: Hiatal hernia repair /CERTIFIED PHARMACIST ASSISTANT: reports: section - POLST Patient has POLST: No Meds/Allgy - Home Medications Home Medications: Ambulatory Orders Medication Instructions Recorded Confirmed Gabapentin [Gralise] 1 each PO DAILY 03/26/13 03/30/18 metFORMIN [Glucophage] 1,000 mg PO BID 03/26/13 03/30/18 Albuterol Sulfate [Proventil Hfa 1 - 2 puffs IH Q4H PRN #1 11/23/15 03/30/18 Inhaler] [email or web address] Cephalexin [Keflex] 500 mg PO QID #28 capsule 06/29/18 Lisinopril 10 mg PO 06/29/18 06/29/18 cephALEXin [Cephalexin] 500 mg PO TID #20 tablet 09/12/18 Atorvastatin [Lipitor] 1 tab ORAL DAILY 09/15/18 09/15/18 - Allergies Allergies/Adverse Reactions: Allergies Allergy/AdvReac Type Severity Reaction Status Date / Time ampicillin [Ampicillin] Allergy Intermediate Rash Verified 09/15/18 19:13 morphine Allergy Intermediate Rash Verified 09/15/18 19:13 acetaminophen [From Percocet] Allergy Rash Verified 09/15/18 19:13 ciprofloxacin [From Cipro] Allergy Itching Verified 09/15/18 19:19 clindamycin Allergy Hives Verified 09/15/18 19:19 erythromycin base Allergy Nausea Verified 09/15/18 19:13 [From E-Mycin] lisinopril Allergy Edema Verified 09/15/18 19:19 oxycodone HCl * Allergy Rash Verified 09/15/18 19:13 [From Percocet] Penicillins Allergy Rash Verified 09/15/18 19:13 Sulfa (Sulfonamide Allergy Rash Verified 09/15/18 19:13 Antibiotics) tetracycline [Tetracycline] Allergy Rash Verified 09/15/18 19:13 Review of Systems - All Other Systems All Other Systems: reports: Reviewed and negative Prior Level of Functionality: Previously known to be independent with Home ADL's Exam - Vital Signs Reviewed Vital Signs: Yes Vital Signs: Vital Signs x48h Temp Pulse Resp BP Pulse Ox 09/15/18 21:16 911 H 17 137/87 H 100 09/15/18 20:12 36.6 C 09/15/18 20:11 87 16 116/69 100 09/15/18 18:06 36.3 C L 99 18 124/59 L 94 - Physical Exam General Appearance: positive: Alert, Mild distress, Lethargic Eyes Bilateral: positive: Normal inspection, PERRL, EOMI, Conjunctivae nml ENT: positive: ENT inspection nml, Pharynx nml, Dry mucous membranes Neck: positive: Nml inspection, Thyroid nml, No JVD, Trachea midline. negative: Thyromegaly Respiratory: positive: Chest non-tender, No respiratory distress, Breath sounds nml Cardiovascular: positive: Regular rate & rhythm, No murmur, No gallop. negative: Irregularly irregular, JVD present, Systolic murmur, Gallop/S4 Peripheral Pulses: positive: 1+ Abdomen: positive: Non-tender, No distention. negative: Tenderness, Guarding, Rebound, Hepatomegaly, Splenomegaly, Bruit Back: positive: Nml inspection Skin: positive: No rash, Warm, Diaphoresis, Other (mottled BLLE) Extremities: positive: Non-tender, Full ROM, No pedal edema. negative: Calf tenderness, Joint swelling, Kaleigh's sign/cords Neurologic/Psychiatric: positive: Oriented x3, CN's nml (2-12), Depressed mood/affect. negative: Facial droop, Slurred/abnml speech Reflexes: Bicep (R): 2+, Bicep (L): 2+, Knee (R): 2+, Knee (L): 2+, Ankle (R): 2+, Ankle (L): 2+ Babinski Reflex: Right: Absent, Left: Absent Sepsis Event Note (H) - Evaluation Current Stage of Sepsis: Sepsis Possible source of Sepsis: positive: Genitourinary - Sepsis Criteria Sepsis Criteria: Recorded Temperature greater than 38.3C or Less than 36C, Recorded Heart Rate greater than 90 bpm, WBC count greater than 10% bands, WBC count greater than 12,000 or less than 4000, GIRLS TENNIS COACH: altered consciousness (unrelated to primary neuro pathology) Conclusion/Plan - Problem List (1) Sepsis Conclusion/Plan: Secondary to E. coli UTI with precipating factors of meth abuse with uncontrolled NIDDM type 2 w/o DKA, and severe dehydration. Would continue with IVF resuscitating empiric IV abx with Cefepime despite allergies to PCN (25% cross-reactivity). Lactic acid not elevated, VSS, daily labs. Has a bandemia. Qualifiers: Sepsis type: Escherichia coli Qualified Code(s): A41.51 - Sepsis due to Escherichia coli [E. coli] (2) UTI (urinary tract infection) Conclusion/Plan: Pansensitive e. coli UTI seen, on IV cefepime to continue. Likely from poor urinary hygiene and poorly controlled NIDDM type 2. Qualifiers: Urinary tract infection type: site unspecified Hematuria presence: with hematuria Qualified Code(s): N39.0 - Urinary tract infection, site not specified; R31.9 - Hematuria, unspecified (3) Pancreatitis Conclusion/Plan: Painless, lipase 277, check ETOH, monitor, pain control prn. IVF's, NPO, bowel rest for now. Qualifiers: Chronicity: acute Pancreatitis type: unspecified pancreatitis type (4) Methamphetamine abuse Conclusion/Plan: She admits to meth use, nabor obtain UDS to see other possible drugs of abuse such as opiates or benzos as she was AMS encephaopathic on arrival. IVF's to continue. (5) Severe dehydration Conclusion/Plan: Continue with IVF's and electrolyte repletion, asymptomatic hypokalemia with valdo e pseudohyponatremia as a result from hyperglycemia non-AG, hyperosmolar state. (6) ARF (acute renal failure) Conclusion/Plan: Sec to severe dehydration and diuresis, would continue to monitor renal function and replace electrolyte to avoid nephrotoxic agents. Has underlying CKD stage 2 with baseline 0.8-1.0. Continue to perfuse kidneys with IVFs. Qualifiers: Acute renal failure type: unspecified Qualified Code(s): N17.9 - Acute kidney failure, unspecified (7) Ataxia Conclusion/Plan: Sec to multifactorial cause (i.e meth use, dehydration UTI/sepsis), PT to follow (9) Diabetes mellitus with hyperglycemia Qualifiers: Diabetes mellitus type: type 2 Diabetes mellitus roasterman insulin use: without roasterman use Qualified Code(s): E11.65 - Type 2 diabetes mellitus with hyperglycemia (10) Hypokalemia Conclusion/Plan: Electrolyte repletion and IVF's to be running D5NS with 40 meqKCL @75 ml/hr. - Lab Results Lab results reviewed: Yes Fish Bones: 09/15/18 18:58 09/15/18 18:58 - EKG Results EKG Interpreted Independently: No
[2018-09-16] MEDS: CEFEPIME 2 GM in SODIUM CHLORIDE 0.9% MINIBAG 100 ML IV SCH ×2 (03:40→08:07)
[2018-09-16] MEDS: SODIUM CHLORIDE FLUSH 0.9% 10 ML SYRINGE IVP SCH ×3 (03:42→16:35)
[2018-09-16] MEDS: INSULIN REGULAR HUMAN 100 UNIT/1 ML 10 ML MDV SUBQ SCH ×3 (03:43→11:10)
[2018-09-16] MEDS: HEPARIN 5,000 UNIT/ML VIAL SUBQ SCH ×3 (03:54→20:23)
[2018-09-16] MEDS ORDERED: GI COCKTAIL 120 ML BOTTLE PO PRN (05:41)
[2018-09-16] MEDS: PANTOPRAZOLE 40 MG TABLET PO SCH (06:04)
[2018-09-16] MEDS: SODIUM CHLORIDE FLUSH 0.9% 10 ML SYRINGE IVP PRN (06:10)
[2018-09-16] MEDS: HYOSCYAMINE SL 0.125 MG TABLET SL SCH ×3 (07:02→22:50)
[2018-09-16 07:05] LABS: MUDS CUTOFF CONCENTRATIONS CUTOFF CONC BELOW:
[2018-09-16 07:18] LABS: ALBUMIN 2.2 g/dL (3.2-5.5); ALBUMIN/GLOBULIN RATIO 0.5 (1.0-2.2); ALKALINE PHOSPHATASE 152 IU/L (42-121); ALT ALANINE AMINOTRANSFERASE 25 IU/L (10-60); AST ASPARTATE AMINOTRANSFERASE 22 IU/L (10-42); BILIRUBIN,TOTAL 0.9 mg/dL (0.2-1.0); BUN - BLOOD UREA NITROGEN 36 mg/dL (6-20); CALCIUM 7.8 mg/dL (8.5-10.3); CARBON DIOXIDE - CO2 21 mmol/L (21-32); CHLORIDE 98 mmol/L (101-111); GFR - MDRD 25 (>89); GLUCOSE 195 mg/dL (70-100); MAGNESIUM 1.8 mg/dL (1.7-2.8); SODIUM 129 mmol/L (135-145); TOTAL PROTEIN 6.4 g/dL (6.7-8.2)
[2018-09-16 07:34] LABS: AMPHETAMINE SCREEN,URINE POSITIVE (NEGATIVE); BENZODIAZEPINES SCREEN, URINE NEGATIVE (NEGATIVE); COCAINE SCREEN URINE NEGATIVE (NEGATIVE); METHADONE SCREEN, URINE NEGATIVE (NEGATIVE); METHAMPHETAMINES SCREEN, URINE POSITIVE (NEGATIVE); OPIATE SCREEN, URINE NEGATIVE (NEGATIVE); OXYCODONE SCREEN, URINE NEGATIVE (NEGATIVE); PROPOXYPHENE SCREEN, URINE NEGATIVE (NEGATIVE); TRICYCLIC ANTIDEPRESSANT,URINE NEGATIVE (NEGATIVE)
[2018-09-16] MEDS: POLYETHYLENE GLYCOL 3350 17 GM PACKET PO SCH (08:01)
[2018-09-16] MEDS ORDERED: ALBUTEROL NEB 2.5 MG/3 ML INH PRN (08:23)
[2018-09-16 09:24] LABS: BASOPHILS # (AUTO) 0.1 10^3/uL (0.0-0.1); BASOPHILS % (AUTO) 0.3 %; EOSINOPHILS # (AUTO) 0.1 10^3/uL (0.0-0.7); EOSINOPHILS % (AUTO) 0.3 %; HGB - HEMOGLOBIN 11.4 g/dL (12.0-16.0); LYMPHOCYTES # (AUTO) 1.4 10^3/uL (1.5-3.5); LYMPHOCYTES % (AUTO) 6.3 %; MEAN CORPUSCULAR HEMOGLOBIN 30.8 pg (27.0-31.0); MEAN CORPUSCULAR HGB CONC 33.2 g/dL (32.0-36.0); MEAN CORPUSCULAR VOLUME 92.9 fL (81.0-99.0); MEAN PLATELET VOLUME 7.7 fL (7.9-10.8); MONOCYTES % (AUTO) 4.2 %; NEUTROPHILS # (AUTO) 20.5 10^3/uL (1.5-6.6); NEUTROPHILS % (AUTO) 88.9 %; PLT - PLATELET COUNT 252 10^3/uL (130-450); RED BLOOD COUNT 3.71 10^6/uL (4.20-5.40); RED CELL DISTRIBUTION WIDTH 14.5 % (12.0-15.0)
[2018-09-16 10:15] LABS: PLATELET ESTIMATE, MANUAL NORMAL (130-450,000) (NORMAL); PLATELET MORPHOLOGY NORMAL APPEARANCE (NORMAL); RBC MORPHOLOGY (MULTIPLE) NORMAL APPEARANCE (NORMAL)
[2018-09-16] MEDS ORDERED: LORazepam 0.5 MG TABLET PO PRN (10:24)
[2018-09-16] MEDS: SODIUM CHLORIDE 0.9% 1,000 ML IV SCH ×2 (10:49→20:17)
[2018-09-16] MEDS ORDERED: INSULIN ASPART 300 UNIT/3 ML PEN SUBQ SCH (12:00)
--- NOTE | 2018-09-16 14:46 | PROVIDER PROGRESS NOTE ---
Subjective - Prog Note Date Prog Note Date: 09/16/18 - Subjective Pt reports feeling: No change Subjective: pt is alert and easy to be agitated whe try to ask questions. pt has no complaint, denies fever, chill, chest pain, shortness of breath. Current Medications - Current Medications Current Medications: Active Medications Albuterol () 2.5 mg INH RTQ4H PRN PRN Reason: Wheezing Atorvastatin Calcium (Lipitor) 20 mg PO QPM [facility] Heparin Sodium (Porcine) () 5,000 unit SUBQ BID [facility] Last Admin: 09/16/18 08:09 Dose: 5,000 unit Hyoscyamine (Levsin) 0.125 mg SL TID [facility] Last Admin: 09/16/18 13:57 Dose: 0.125 mg Cefepime HCl 2 gm/ Sodium (Chloride) 100 mls @ 200 mls/hr IV DAILY [facility] Last Infusion: 09/16/18 08:37 Dose: Infused Sodium Chloride (Normal Saline 0.9%) 1,000 mls @ 100 mls/hr IV .Q10H [facility] Stop: 09/17/18 04:59 Last Admin: 09/16/18 10:49 Dose: 100 mls/hr Insulin Aspart (Novolog) 3 - 11 unit SUBQ 0800,1200,1700,2100 [facility]; Protocol Insulin Glargine (Lantus Solostar) 10 unit SUBQ QPM [facility] Lorazepam (Ativan) 0.5 mg PO Q6H PRN PRN Reason: Anxiety Last Admin: 09/16/18 10:49 Dose: 0.5 mg Multi-Ingredient Mouthwash/Gargle () 30 ml PO Q4HR PRN PRN Reason: Abdominal Pain Ondansetron HCl (Zofran Inj) 4 mg IVP Q6HR PRN PRN Reason: Nausea / Vomiting Ondansetron HCl (Zofran Odt) 4 mg TL Q6HR PRN PRN Reason: Nausea / Vomiting Pantoprazole Sodium (Protonix) 40 mg PO QDAC [facility] Last Admin: 09/16/18 06:04 Dose: 40 mg Polyethylene Glycol (Miralax) 17 gm PO DAILY [facility] Last Admin: 09/16/18 08:01 Dose: Not Given Sodium Chloride (Normal Saline Flush 0.9%) 10 ml IVP PRN PRN PRN Reason: NEEDED PER PROVIDER ORDERS Last Admin: 09/16/18 06:10 Dose: 10 ml Sodium Chloride (Normal Saline Flush 0.9%) 10 ml IVP 0100,0900,1700 DAT Last Admin: 09/16/18 07:31 Dose: Not Given metFORMIN [Glucophage] 1,000 mg PO BID 03/26/13 Lisinopril 10 mg PO DAILY 06/29/18 Atorvastatin [Lipitor] 20 mg ORAL QPM 09/15/18 Albuterol Sulfate [Albuterol Sulfate Hfa] 2 puffs INH Q4H PRN 09/16/18 Gabapentin 100 mg PO DAILY 09/16/18 Objective - Vital Signs/Intake & Output Reviewed Vital Signs: Yes Vital Signs: Vital Signs x48h Temp Pulse Pulse Resp BP BP Pulse Ox 09/16/18 11:23 36.5 C 92 18 123/59 L 98 09/16/18 11:03 86 119/53 L 09/16/18 07:38 36.8 C 91 18 117/55 L 94 Intake & Output: Intake & Output 09/13/18 09/14/18 09/15/18 09/16/18 23:59 23:59 23:59 23:59 Intake Total 3700 1930 Output Total 1900 Balance 3700 30 - Objective General Appearance: positive: No acute distress, Alert. negative: Lethargic Eyes Bilateral: positive: Normal inspection, PERRL, No lid inflammation, Conjunctivae nml ENT: positive: ENT inspection nml, Pharynx nml, No signs of dehydration. negative: Purulent nasal drainage, Pharyngeal erythema, Oral lesions Neck: positive: Nml inspection, Thyroid nml, No JVD, Trachea midline. negative: Thyromegaly, Lymphadenopathy (R), Lymphadenopathy (L), Stiff neck, Swelling/bruising, Tracheal deviation Respiratory: positive: Chest non-tender, No respiratory distress, Breath sounds nml. negative: Wheezes, Rales, Rhonchi Cardiovascular: positive: Regular rate & rhythm, No murmur, No gallop. negative: Irregularly irregular, Extrasystoles, Tachycardia, Bradycardia, JVD present, Systolic murmur, Diastolic murmur Peripheral Pulses: 2+ Radial (R), 2+ Radial (L), 2+ Dorsalis pedis (R), 2+ Dorsalis pedis (L) Abdomen: positive: Non-tender, No organomegaly, Nml bowel sounds, No distention. negative: Tenderness, Guarding, Rebound Back: positive: Nml inspection. negative: CVA tenderness (R), CVA tenderness (L) Skin: positive: Color nml, No rash, Warm, Dry. negative: Cyanosis, Diaphoresis, Pallor Extremities: positive: Non-tender, Full ROM, Nml appearance. negative: Calf tenderness, Joint swelling, Kaleigh's sign/cords Neurologic/Psychiatric: positive: Sensation nml. negative: Weakness, Sensory loss, Facial droop, Slurred/abnml speech, Depressed mood/affect - Lab Results Fish Bones: 09/16/18 06:48 09/16/18 06:48 Other Labs: Lab Results x24hrs 09/16/18 09/16/18 09/16/18 Range/Units 10:58 06:48 06:48 WBC (4.8-10.8) x10^3/uL RBC (4.20-5.40) 10^6/uL Hgb (12.0-16.0) g/dL Hct (37.0-47.0) % MCV (81.0-99.0) fL MCH (27.0-31.0) pg MCHC (32.0-36.0) g/dL RDW (12.0-15.0) % Plt Count (130-450) 10^3/uL MPV (7.9-10.8) fL Neut # (Auto) Lymph # (Auto) [place] # (Auto) Eos # (Auto) Baso # (Auto) Absolute Nucleated RBC Total Counted Band Neuts % (Manual) (0 - 10) % Abnorm Lymph % (Manual) % Nucleated RBC % Neutrophils # (Manual) (1.5-6.6) 10^3/uL Lymphocytes # (Manual) (1.5-3.5) 10^3/uL Monocytes # (Manual) (0.0-1.0) 10^3/uL Eosinophils # (Manual) (0-0.7) 10^3/uL Basophils # (Manual) (0-0.1) 10^3/uL Differential Comment Manual Slide Review WBC Morphology (NORMAL) Platelet Estimate (NORMAL) Platelet Morphology (NORMAL) RBC Morph Micro Appear (NORMAL) Sodium 129 L (135-145) mmol/L Potassium 3.8 (3.5-5.0) mmol/L Chloride 98 L (101-111) mmol/L Carbon Dioxide 21 (21-32) mmol/L Anion Gap 10.0 (6-13) BUN 36 H (6-20) mg/dL Creatinine 2.0 H (0.4-1.0) mg/dL Estimated GFR (MDRD) 25 L (>89) Glucose 195 H (70-100) mg/dL POC Whole Bld Glucose 315 H (70 - 100) mg/dL Glycated Hemoglobin (4.6-6.2) % Estim Average Glucose (70-100) Lactic Acid (0.5-2.2) mmol/L Calcium 7.8 L (8.5-10.3) mg/dL Magnesium 1.8 (1.7-2.8) mg/dL Total Bilirubin 0.9 (0.2-1.0) mg/dL AST 22 (10-42) IU/L ALT 25 (10-60) IU/L Alkaline Phosphatase 152 H (42-121) IU/L Total Protein 6.4 L (6.7-8.2) g/dL Albumin 2.2 L (3.2-5.5) g/dL Globulin 4.2 (2.1-4.2) g/dL Albumin/Globulin Ratio 0.5 L (1.0-2.2) Lipase 45 (22-51) U/L Urine Color Urine Clarity (CLEAR) Urine pH (5.0-7.5) PH Ur Specific [place] (1.002-1.030) Urine Protein (NEGATIVE) mg/dL Urine Glucose (UA) (NEGATIVE) mg/dL Urine Ketones (NEGATIVE) mg/dL Urine Occult Blood (NEGATIVE) Urine Nitrite (NEGATIVE) Urine Bilirubin (NEGATIVE) Urine Urobilinogen (NORMAL) E.U./dL Ur Leukocyte Esterase (NEGATIVE) Urine RBC (0-5) /HPF Urine WBC (0-5) /HPF Ur Squamous Epith Cells (<= Few) Urine Bacteria (None Seen) /HPF Ur Microscopic Review Urine Culture Comments Urine Opiates Screen (NEGATIVE) Ur Oxycodone Screen (NEGATIVE) Urine Methadone Screen (NEGATIVE) Ur Propoxyphene Screen (NEGATIVE) Ur Barbiturates Screen (NEGATIVE) Ur Tricyclics Screen (NEGATIVE) Ur Phencyclidine Scrn (NEGATIVE) Ur Amphetamine Screen (NEGATIVE) U Methamphetamines Scrn (NEGATIVE) U Benzodiazepines Scrn (NEGATIVE) Urine Cocaine Screen (NEGATIVE) U Cannabinoids Screen (NEGATIVE) Ethyl Alcohol < 5.0 mg/dL 09/16/18 09/16/18 09/16/18 Range/Units 06:48 05:28 05:20 WBC 23.0 H (4.8-10.8) x10^3/uL RBC 3.71 L (4.20-5.40) 10^6/uL Hgb 11.4 L (12.0-16.0) g/dL Hct 34.5 L (37.0-47.0) % MCV 92.9 (81.0-99.0) fL MCH 30.8 (27.0-31.0) pg MCHC 33.2 (32.0-36.0) g/dL RDW 14.5 (12.0-15.0) % Plt Count 252 (130-450) 10^3/uL MPV 7.7 L (7.9-10.8) fL Neut # (Auto) 20.5 H Lymph # (Auto) 1.4 L [place] # (Auto) 1.0 Eos # (Auto) 0.1 Baso # (Auto) 0.1 Absolute Nucleated RBC 0.01 Total Counted Band Neuts % (Manual) (0 - 10) % Abnorm Lymph % (Manual) % Nucleated RBC % 0.1 Neutrophils # (Manual) (1.5-6.6) 10^3/uL Lymphocytes # (Manual) (1.5-3.5) 10^3/uL Monocytes # (Manual) (0.0-1.0) 10^3/uL Eosinophils # (Manual) (0-0.7) 10^3/uL Basophils # (Manual) (0-0.1) 10^3/uL Differential Comment Manual Slide Review Indicated WBC Morphology TOXIC GRANULATION (NORMAL) Platelet Estimate NORMAL (130-450,000) (NORMAL) Platelet Morphology NORMAL APPEARANCE (NORMAL) RBC Morph Micro Appear NORMAL APPEARANCE (NORMAL) Sodium (135-145) mmol/L Potassium (3.5-5.0) mmol/L Chloride (101-111) mmol/L Carbon Dioxide (21-32) mmol/L Anion Gap (6-13) BUN (6-20) mg/dL Creatinine (0.4-1.0) mg/dL Estimated GFR (MDRD) (>89) Glucose (70-100) mg/dL POC Whole Bld Glucose 181 H (70 - 100) mg/dL Glycated Hemoglobin (4.6-6.2) % Estim Average Glucose (70-100) Lactic Acid (0.5-2.2) mmol/L Calcium (8.5-10.3) mg/dL Magnesium (1.7-2.8) mg/dL Total Bilirubin (0.2-1.0) mg/dL AST (10-42) IU/L ALT (10-60) IU/L Alkaline Phosphatase (42-121) IU/L Total Protein (6.7-8.2) g/dL Albumin (3.2-5.5) g/dL Globulin (2.1-4.2) g/dL Albumin/Globulin Ratio (1.0-2.2) Lipase (22-51) U/L Urine Color Urine Clarity (CLEAR) Urine pH (5.0-7.5) PH Ur Specific [place] (1.002-1.030) Urine Protein (NEGATIVE) mg/dL Urine Glucose (UA) (NEGATIVE) mg/dL Urine Ketones (NEGATIVE) mg/dL Urine Occult Blood (NEGATIVE) Urine Nitrite (NEGATIVE) Urine Bilirubin (NEGATIVE) Urine Urobilinogen (NORMAL) E.U./dL Ur Leukocyte Esterase (NEGATIVE) Urine RBC (0-5) /HPF Urine WBC (0-5) /HPF Ur Squamous Epith Cells (<= Few) Urine Bacteria (None Seen) /HPF Ur Microscopic Review Urine Culture Comments Urine Opiates Screen NEGATIVE (NEGATIVE) Ur Oxycodone Screen NEGATIVE (NEGATIVE) Urine Methadone Screen NEGATIVE (NEGATIVE) Ur Propoxyphene Screen NEGATIVE (NEGATIVE) Ur Barbiturates Screen NEGATIVE (NEGATIVE) Ur Tricyclics Screen NEGATIVE (NEGATIVE) Ur Phencyclidine Scrn NEGATIVE (NEGATIVE) Ur Amphetamine Screen POSITIVE H (NEGATIVE) U Methamphetamines Scrn POSITIVE H (NEGATIVE) U Benzodiazepines Scrn NEGATIVE (NEGATIVE) Urine Cocaine Screen NEGATIVE (NEGATIVE) U Cannabinoids Screen NEGATIVE (NEGATIVE) Ethyl Alcohol mg/dL 09/15/18 09/15/18 09/15/18 Range/Units 22:51 19:59 18:58 WBC (4.8-10.8) x10^3/uL RBC (4.20-5.40) 10^6/uL Hgb (12.0-16.0) g/dL Hct (37.0-47.0) % MCV (81.0-99.0) fL MCH (27.0-31.0) pg MCHC (32.0-36.0) g/dL RDW (12.0-15.0) % Plt Count (130-450) 10^3/uL MPV (7.9-10.8) fL Neut # (Auto) Lymph # (Auto) [place] # (Auto) Eos # (Auto) Baso # (Auto) Absolute Nucleated RBC Total Counted Band Neuts % (Manual) (0 - 10) % Abnorm Lymph % (Manual) % Nucleated RBC % Neutrophils # (Manual) (1.5-6.6) 10^3/uL Lymphocytes # (Manual) (1.5-3.5) 10^3/uL Monocytes # (Manual) (0.0-1.0) 10^3/uL Eosinophils # (Manual) (0-0.7) 10^3/uL Basophils # (Manual) (0-0.1) 10^3/uL Differential Comment Manual Slide Review WBC Morphology (NORMAL) Platelet Estimate (NORMAL) Platelet Morphology (NORMAL) RBC Morph Micro Appear (NORMAL) Sodium (135-145) mmol/L Potassium (3.5-5.0) mmol/L Chloride (101-111) mmol/L Carbon Dioxide (21-32) mmol/L Anion Gap (6-13) BUN (6-20) mg/dL Creatinine (0.4-1.0) mg/dL Estimated GFR (MDRD) (>89) Glucose (70-100) mg/dL POC Whole Bld Glucose 230 H (70 - 100) mg/dL Glycated Hemoglobin 9.4 H (4.6-6.2) % Estim Average Glucose 223 H (70-100) Lactic Acid 1.2 (0.5-2.2) mmol/L Calcium (8.5-10.3) mg/dL Magnesium (1.7-2.8) mg/dL Total Bilirubin (0.2-1.0) mg/dL AST (10-42) IU/L ALT (10-60) IU/L Alkaline Phosphatase (42-121) IU/L Total Protein (6.7-8.2) g/dL Albumin (3.2-5.5) g/dL Globulin (2.1-4.2) g/dL Albumin/Globulin Ratio (1.0-2.2) Lipase (22-51) U/L Urine Color Urine Clarity (CLEAR) Urine pH (5.0-7.5) PH Ur Specific [place] (1.002-1.030) Urine Protein (NEGATIVE) mg/dL Urine Glucose (UA) (NEGATIVE) mg/dL Urine Ketones (NEGATIVE) mg/dL Urine Occult Blood (NEGATIVE) Urine Nitrite (NEGATIVE) Urine Bilirubin (NEGATIVE) Urine Urobilinogen (NORMAL) E.U./dL Ur Leukocyte Esterase (NEGATIVE) Urine RBC (0-5) /HPF Urine WBC (0-5) /HPF Ur Squamous Epith Cells (<= Few) Urine Bacteria (None Seen) /HPF Ur Microscopic Review Urine Culture Comments Urine Opiates Screen (NEGATIVE) Ur Oxycodone Screen (NEGATIVE) Urine Methadone Screen (NEGATIVE) Ur Propoxyphene Screen (NEGATIVE) Ur Barbiturates Screen (NEGATIVE) Ur Tricyclics Screen (NEGATIVE) Ur Phencyclidine Scrn (NEGATIVE) Ur Amphetamine Screen (NEGATIVE) U Methamphetamines Scrn (NEGATIVE) U Benzodiazepines Scrn (NEGATIVE) Urine Cocaine Screen (NEGATIVE) U Cannabinoids Screen (NEGATIVE) Ethyl Alcohol mg/dL 09/15/18 09/15/18 09/15/18 Range/Units 18:58 18:58 18:35 WBC 26.8 H (4.8-10.8) x10^3/uL RBC 4.03 L (4.20-5.40) 10^6/uL Hgb 12.2 (12.0-16.0) g/dL Hct 37.4 (37.0-47.0) % MCV 92.9 (81.0-99.0) fL MCH 30.4 (27.0-31.0) pg MCHC 32.7 (32.0-36.0) g/dL RDW 14.4 (12.0-15.0) % Plt Count 256 (130-450) 10^3/uL MPV 8.0 (7.9-10.8) fL Neut # (Auto) Not Reportable Lymph # (Auto) Not Reportable [place] # (Auto) Not Reportable Eos # (Auto) Not Reportable Baso # (Auto) Not Reportable Absolute Nucleated RBC Not Reportable Total Counted 100 Band Neuts % (Manual) 13 H (0 - 10) % Abnorm Lymph % (Manual) 0 % Nucleated RBC % Not Reportable Neutrophils # (Manual) 24.7 H (1.5-6.6) 10^3/uL Lymphocytes # (Manual) 0.8 L (1.5-3.5) 10^3/uL Monocytes # (Manual) 1.3 H (0.0-1.0) 10^3/uL Eosinophils # (Manual) 0.0 (0-0.7) 10^3/uL Basophils # (Manual) 0.0 (0-0.1) 10^3/uL Differential Comment MANUAL DIFFERENTIAL Manual Slide Review Indicated WBC Morphology 2+ TOXIC GRANULATION (NORMAL) Platelet Estimate NORMAL (130-450,000) (NORMAL) Platelet Morphology NORMAL APPEARANCE (NORMAL) RBC Morph Micro Appear NORMAL APPEARANCE (NORMAL) Sodium 124 L (135-145) mmol/L Potassium 2.6 L (3.5-5.0) mmol/L Chloride 91 L (101-111) mmol/L Carbon Dioxide 22 (21-32) mmol/L Anion Gap 11.0 (6-13) BUN 47 H (6-20) mg/dL Creatinine 2.8 H (0.4-1.0) mg/dL Estimated GFR (MDRD) 17 L (>89) Glucose 371 H (70-100) mg/dL POC Whole Bld Glucose (70 - 100) mg/dL Glycated Hemoglobin (4.6-6.2) % Estim Average Glucose (70-100) Lactic Acid (0.5-2.2) mmol/L Calcium 8.3 L (8.5-10.3) mg/dL Magnesium (1.7-2.8) mg/dL Total Bilirubin 0.8 (0.2-1.0) mg/dL AST 17 (10-42) IU/L ALT 31 (10-60) IU/L Alkaline Phosphatase 158 H (42-121) IU/L Total Protein 7.1 (6.7-8.2) g/dL Albumin 2.6 L (3.2-5.5) g/dL Globulin 4.5 H (2.1-4.2) g/dL Albumin/Globulin Ratio 0.6 L (1.0-2.2) Lipase 277 H (22-51) U/L Urine Color DARK YELLOW Urine Clarity CLOUDY (CLEAR) Urine pH 5.5 (5.0-7.5) PH Ur Specific [place] 1.025 (1.002-1.030) Urine Protein 100 H (NEGATIVE) mg/dL Urine Glucose (UA) 500 H (NEGATIVE) mg/dL Urine Ketones TRACE (NEGATIVE) mg/dL Urine Occult Blood LARGE H (NEGATIVE) Urine Nitrite NEGATIVE (NEGATIVE) Urine Bilirubin NEGATIVE (NEGATIVE) Urine Urobilinogen 0.2 (NORMAL) (NORMAL) E.U./dL Ur Leukocyte Esterase SMALL H (NEGATIVE) Urine RBC 11-25 H (0-5) /HPF Urine WBC >25 H (0-5) /HPF Ur Squamous Epith Cells FEW Squamous (<= Few) Urine Bacteria Many H (None Seen) /HPF Ur Microscopic Review INDICATED Urine Culture Comments INDICATED Urine Opiates Screen (NEGATIVE) Ur Oxycodone Screen (NEGATIVE) Urine Methadone Screen (NEGATIVE) Ur Propoxyphene Screen (NEGATIVE) Ur Barbiturates Screen (NEGATIVE) Ur Tricyclics Screen (NEGATIVE) Ur Phencyclidine Scrn (NEGATIVE) Ur Amphetamine Screen (NEGATIVE) U Methamphetamines Scrn (NEGATIVE) U Benzodiazepines Scrn (NEGATIVE) Urine Cocaine Screen (NEGATIVE) U Cannabinoids Screen (NEGATIVE) Ethyl Alcohol mg/dL ABX Reporting Has patient been on IV antibiotics over the past 48 hours?: Yes Sepsis Event Note (H) - Evaluation Current Stage of Sepsis: Sepsis Possible source of Sepsis: positive: Genitourinary - Sepsis Criteria Sepsis Criteria: Recorded Temperature greater than 38.3C or Less than 36C, Recorded Heart Rate greater than 90 bpm, WBC count greater than 10% bands, WBC count greater than 12,000 or less than 4000, [employer]CE[employer]GR[employer] PROFESSOR: altered consciousness (unrelated to primary neuro pathology) Assessment/Plan - Problem List (1) Sepsis Impression: 09/16 pt present significant elevated WBC, UTI, and CHARLES, which indicate pre- sepsis/sepsis IVF of NS treated with antibiotics Cefepime with renal adjusted Cr dosage lab and vital monitor (2) UTI (urinary tract infection) Conclusion/Plan: 09/16UA is positive for Ecoli but sensitivity study is pending continue treated with Cefepime followup sensitivity study (3) Pancreatitis Conclusion/Plan: 09/06Lipase is down to normal, pt denies abdominal pain (4) Methamphetamine abuse Conclusion/Plan: UDS reveals pt is positive for meth. advise pt quit continue IVF, precaution of possible meth withdrawal (5) Severe dehydration Conclusion/Plan: continue IVF of NS continue lab monitor (6) ARF (acute renal failure) improved, creatinine today is 2.0 from previous 2.8 continue IVF, and lab monitor pt (7) Ataxia Conclusion/Plan: Sec to multifactorial cause (i.e meth use, dehydration UTI/sepsis), PT to follow (9) Diabetes mellitus with hyperglycemia 09/16 pt took Metformin at home. now pt has CHARLES, and uncontrolled hyperglycemia and A1C 9.4. Not we start on insulin for pt Lantus 10 unit on night Slide scale for insulin ACHS, hypoglycemia protocol lab monitor (10) Hypokalemia Conclusion/Plan: resolved (11) hyponatremia 09/16 today Na is 129, it appear from pt's worsening renal function continue IVF of NS recheck lab and monitor kidney function. Qualifiers: Sepsis type: Escherichia coli Qualified Code(s): A41.51 - Sepsis due to Escherichia coli [E. coli]
[2018-09-16] MEDS ORDERED: INSULIN ASPART 300 UNIT/3 ML PEN SUBQ ONE (15:30)
[2018-09-16] MEDS: INSULIN ASPART 300 UNIT/3 ML PEN SUBQ SCH ×2 (16:31→20:20)
[2018-09-16] MEDS: ATORVASTATIN 10 MG TABLET PO SCH (20:17)
[2018-09-16] MEDS: INSULIN GLARGINE 300 UNIT/3 ML PEN SUBQ SCH (20:22)
[2018-09-16] MEDS ORDERED: INSULIN GLARGINE 300 UNIT/3 ML PEN SUBQ SCH (21:00)
[2018-09-17] MEDS: SODIUM CHLORIDE FLUSH 0.9% 10 ML SYRINGE IVP SCH ×4 (00:31→23:42)
[2018-09-17 05:41] LABS: BASOPHILS % (AUTO) 0.6 %; EOSINOPHILS % (AUTO) 0.6 %; HGB - HEMOGLOBIN 10.9 g/dL (12.0-16.0); LYMPHOCYTES % (AUTO) 9.3 %; MEAN CORPUSCULAR HEMOGLOBIN 31.7 pg (27.0-31.0); MEAN CORPUSCULAR HGB CONC 34.1 g/dL (32.0-36.0); MEAN CORPUSCULAR VOLUME 92.7 fL (81.0-99.0); MEAN PLATELET VOLUME 7.5 fL (7.9-10.8); MONOCYTES % (AUTO) 5.2 %; NEUTROPHILS % (AUTO) 84.3 %; PLT - PLATELET COUNT 245 10^3/uL (130-450); RED BLOOD COUNT 3.43 10^6/uL (4.20-5.40); RED CELL DISTRIBUTION WIDTH 14.1 % (12.0-15.0); WHITE BLOOD COUNT 15.6 x10^3/uL (4.8-10.8)
[2018-09-17 05:49] LABS: ALBUMIN 2.1 g/dL (3.2-5.5); ALBUMIN/GLOBULIN RATIO 0.5 (1.0-2.2); BILIRUBIN,TOTAL 0.6 mg/dL (0.2-1.0); CALCIUM 7.6 mg/dL (8.5-10.3); CREATININE 1.7 mg/dL (0.4-1.0); TOTAL PROTEIN 6.3 g/dL (6.7-8.2)
[2018-09-17 06:06] LABS: ABNORMAL LYMPHS % (MANUAL) 0 %
[2018-09-17] MEDS: HYOSCYAMINE SL 0.125 MG TABLET SL SCH ×3 (06:24→22:00)
[2018-09-17] MEDS: PANTOPRAZOLE 40 MG TABLET PO SCH (06:24)
[2018-09-17] MEDS: SODIUM CHLORIDE FLUSH 0.9% 10 ML SYRINGE IVP PRN (06:38)
[2018-09-17 06:39] LABS: BAND NEUTROPHILS % (MANUAL) 4 %; LYMPHOCYTES # (MANUAL) 1.2 10^3/uL (1.5-3.5); LYMPHOCYTES % (MANUAL) 8 %; MONOCYTES # (MANUAL) 0.2 10^3/uL (0.0-1.0); MYELOCYTES % (MANUAL) 2 %; NEUTROPHILS # (MANUAL) 13.9 10^3/uL (1.5-6.6); NEUTROPHILS % (MANUAL) 85 %
[2018-09-17 06:40] LABS: PLATELET ESTIMATE, MANUAL NORMAL (130-450,000) (NORMAL); RBC MORPHOLOGY (MULTIPLE) 1+ HYPOCHROMASIA (NORMAL)
[2018-09-17] MEDS ORDERED: POTASSIUM CHLORIDE 20 MEQ TABLET PO ONE (07:34)
[2018-09-17] MEDS: POLYETHYLENE GLYCOL 3350 17 GM PACKET PO SCH (08:10)
[2018-09-17] MEDS: SODIUM CHLORIDE 0.9% 1,000 ML IV SCH ×2 (08:10→17:44)
[2018-09-17] MEDS: HEPARIN 5,000 UNIT/ML VIAL SUBQ SCH ×2 (08:11→21:27)
[2018-09-17] MEDS: CEFEPIME 2 GM in SODIUM CHLORIDE 0.9% MINIBAG 100 ML IV SCH (08:12)
[2018-09-17] MEDS: INSULIN ASPART 300 UNIT/3 ML PEN SUBQ SCH ×4 (08:13→21:26)
--- NOTE | 2018-09-17 12:06 | PROVIDER PROGRESS NOTE ---
Subjective - Prog Note Date Prog Note Date: 09/17/18 - Subjective Pt reports feeling: Improved Subjective: pt has no complaint, she denies fever,chill, CP, SOB. pt report she could not find her Metformin medication for long time, she did not take Metformin for long time, she did not go to see her PCP for the prescribe. She refuse to use insulin at home, instead " I am rather than to have Metformin." Current Medications - Current Medications Current Medications: Active Medications Albuterol () 2.5 mg INH RTQ4H PRN PRN Reason: Wheezing Atorvastatin Calcium (Lipitor) 20 mg PO QPM [facility] Last Admin: 09/16/18 20:17 Dose: 20 mg Heparin Sodium (Porcine) () 5,000 unit SUBQ BID [facility] Last Admin: 09/17/18 08:11 Dose: 5,000 unit Hyoscyamine (Levsin) 0.125 mg SL TID [facility] Last Admin: 09/17/18 06:24 Dose: 0.125 mg Cefepime HCl 2 gm/ Sodium (Chloride) 100 mls @ 200 mls/hr IV DAILY [facility] Last Infusion: 09/17/18 09:23 Dose: Infused Sodium Chloride (Normal Saline 0.9%) 1,000 mls @ 125 mls/hr IV .Q8H [facility] Last Admin: 09/17/18 08:10 Dose: 125 mls/hr Insulin Aspart (Novolog) 3 - 11 unit SUBQ 0800,1200,1700,2100 [facility]; Protocol Last Admin: 09/17/18 11:27 Dose: 7 unit Insulin Glargine (Lantus Solostar) 10 unit SUBQ QPM [facility] Last Admin: 09/16/18 20:22 Dose: 10 unit Multi-Ingredient Mouthwash/Gargle () 30 ml PO Q4HR PRN PRN Reason: Abdominal Pain Ondansetron HCl (Zofran Inj) 4 mg IVP Q6HR PRN PRN Reason: Nausea / Vomiting Ondansetron HCl (Zofran Odt) 4 mg TL Q6HR PRN PRN Reason: Nausea / Vomiting Pantoprazole Sodium (Protonix) 40 mg PO QDAC [facility] Last Admin: 09/17/18 06:24 Dose: 40 mg Polyethylene Glycol (Miralax) 17 gm PO DAILY [facility] Last Admin: 09/17/18 08:10 Dose: 17 gm Sodium Chloride (Normal Saline Flush 0.9%) 10 ml IVP PRN PRN PRN Reason: NEEDED PER PROVIDER ORDERS Last Admin: 09/17/18 06:38 Dose: 10 ml Sodium Chloride (Normal Saline Flush 0.9%) 10 ml IVP 0100,0900,1700 DAT Last Admin: 09/17/18 08:10 Dose: 10 ml metFORMIN [Glucophage] 1,000 mg PO BID 03/26/13 Lisinopril 10 mg PO DAILY 06/29/18 Atorvastatin [Lipitor] 20 mg ORAL QPM 09/15/18 Albuterol Sulfate [Albuterol Sulfate Hfa] 2 puffs INH Q4H PRN 09/16/18 Gabapentin 100 mg PO DAILY 09/16/18 Objective - Vital Signs/Intake & Output Reviewed Vital Signs: Yes Vital Signs: Vital Signs x48h Temp Pulse Resp BP Pulse Ox 09/17/18 07:43 37.0 C 81 18 142/65 H 100 Intake & Output: Intake & Output 09/14/18 09/15/18 09/16/18 09/17/18 23:59 23:59 23:59 23:59 Intake Total 3700 3556.667 2220 Output Total 2900 2160 Balance 3700 656.667 60 - Objective General Appearance: positive: No acute distress, Alert. negative: Lethargic Eyes Bilateral: positive: Normal inspection, PERRL, No lid inflammation, Conjunctivae nml ENT: positive: ENT inspection nml, Pharynx nml, No signs of dehydration. negative: Purulent nasal drainage, Pharyngeal erythema, Oral lesions Neck: positive: Nml inspection, Thyroid nml, No JVD, Trachea midline. negative: Thyromegaly, Lymphadenopathy (R), Lymphadenopathy (L), Stiff neck, Swelling/bruising, Tracheal deviation Respiratory: positive: Chest non-tender, No respiratory distress, Breath sounds nml. negative: Wheezes, Rales, Rhonchi Cardiovascular: positive: Regular rate & rhythm, No murmur, No gallop. negative: Irregularly irregular, Extrasystoles, Tachycardia, Bradycardia, JVD present, Systolic murmur, Diastolic murmur Peripheral Pulses: 2+ Radial (R), 2+ Radial (L), 2+ Dorsalis pedis (R), 2+ Dorsalis pedis (L) Abdomen: positive: Non-tender, No organomegaly, Nml bowel sounds, No distention. negative: Tenderness, Guarding, Rebound Back: positive: Nml inspection. negative: CVA tenderness (R), CVA tenderness (L) Skin: positive: Color nml, No rash, Warm, Dry. negative: Cyanosis, Diaphoresis, Pallor Extremities: positive: Non-tender, Full ROM, Nml appearance. negative: Calf tenderness, Joint swelling, Kaleigh's sign/cords Neurologic/Psychiatric: positive: Oriented x3, Motor nml, Sensation nml. negative: Weakness, Facial droop, Slurred/abnml speech, Depressed mood/affect - Lab Results Fish Bones: 09/17/18 05:05 09/17/18 05:05 Other Labs: Lab Results x24hrs 09/17/18 09/17/18 09/17/18 Range/Units 11:21 07:33 05:05 WBC (4.8-10.8) x10^3/uL RBC (4.20-5.40) 10^6/uL Hgb (12.0-16.0) g/dL Hct (37.0-47.0) % MCV (81.0-99.0) fL MCH (27.0-31.0) pg MCHC (32.0-36.0) g/dL RDW (12.0-15.0) % Plt Count (130-450) 10^3/uL MPV (7.9-10.8) fL Neut # (Auto) Lymph # (Auto) [place]om[place] # (Auto) Eos # (Auto) Baso # (Auto) Absolute Nucleated RBC Total Counted Band Neuts % (Manual) (0 - 10) % Abnorm Lymph % (Manual) % Myelocytes % ( - 0) % Nucleated RBC % Neutrophils # (Manual) (1.5-6.6) 10^3/uL Lymphocytes # (Manual) (1.5-3.5) 10^3/uL Monocytes # (Manual) (0.0-1.0) 10^3/uL Eosinophils # (Manual) (0-0.7) 10^3/uL Basophils # (Manual) (0-0.1) 10^3/uL Platelet Estimate (NORMAL) RBC Morph Micro Appear (NORMAL) Sodium 130 L (135-145) mmol/L Potassium 3.1 L (3.5-5.0) mmol/L Chloride 103 (101-111) mmol/L Carbon Dioxide 20 L (21-32) mmol/L Anion Gap 7.0 (6-13) BUN 28 H (6-20) mg/dL Creatinine 1.7 H (0.4-1.0) mg/dL Estimated GFR (MDRD) 30 L (>89) Glucose 198 H (70-100) mg/dL POC Whole Bld Glucose 270 H 198 H (70 - 100) mg/dL Calcium 7.6 L (8.5-10.3) mg/dL Total Bilirubin 0.6 (0.2-1.0) mg/dL AST 25 (10-42) IU/L ALT 26 (10-60) IU/L Alkaline Phosphatase 157 H (42-121) IU/L Total Protein 6.3 L (6.7-8.2) g/dL Albumin 2.1 L (3.2-5.5) g/dL Globulin 4.2 (2.1-4.2) g/dL Albumin/Globulin Ratio 0.5 L (1.0-2.2) 09/17/18 09/16/18 09/16/18 Range/Units 05:05 19:22 16:29 WBC 15.6 H (4.8-10.8) x10^3/uL RBC 3.43 L (4.20-5.40) 10^6/uL Hgb 10.9 L (12.0-16.0) g/dL Hct 31.8 L (37.0-47.0) % MCV 92.7 (81.0-99.0) fL MCH 31.7 H (27.0-31.0) pg MCHC 34.1 (32.0-36.0) g/dL RDW 14.1 (12.0-15.0) % Plt Count 245 (130-450) 10^3/uL MPV 7.5 L (7.9-10.8) fL Neut # (Auto) Not Reportable Lymph # (Auto) Not Reportable [place]ombs # (Auto) Not Reportable Eos # (Auto) Not Reportable Baso # (Auto) Not Reportable Absolute Nucleated RBC Not Reportable Total Counted 100 Band Neuts % (Manual) 4 (0 - 10) % Abnorm Lymph % (Manual) 0 % Myelocytes % 2 H ( - 0) % Nucleated RBC % Not Reportable Neutrophils # (Manual) 13.9 H (1.5-6.6) 10^3/uL Lymphocytes # (Manual) 1.2 L (1.5-3.5) 10^3/uL Monocytes # (Manual) 0.2 (0.0-1.0) 10^3/uL Eosinophils # (Manual) 0.0 (0-0.7) 10^3/uL Basophils # (Manual) 0.0 (0-0.1) 10^3/uL Platelet Estimate NORMAL (130-450,000) (NORMAL) RBC Morph Micro Appear 1+ HYPOCHROMASIA (NORMAL) Sodium (135-145) mmol/L Potassium (3.5-5.0) mmol/L Chloride (101-111) mmol/L Carbon Dioxide (21-32) mmol/L Anion Gap (6-13) BUN (6-20) mg/dL Creatinine (0.4-1.0) mg/dL Estimated GFR (MDRD) (>89) Glucose (70-100) mg/dL POC Whole Bld Glucose 178 H 261 H (70 - 100) mg/dL Calcium (8.5-10.3) mg/dL Total Bilirubin (0.2-1.0) mg/dL AST (10-42) IU/L ALT (10-60) IU/L Alkaline Phosphatase (42-121) IU/L Total Protein (6.7-8.2) g/dL Albumin (3.2-5.5) g/dL Globulin (2.1-4.2) g/dL Albumin/Globulin Ratio (1.0-2.2) ABX Reporting Has patient been on IV antibiotics over the past 48 hours?: Yes Sepsis Event Note (H) - Evaluation Current Stage of Sepsis: Sepsis Possible source of Sepsis: positive: Genitourinary - Sepsis Criteria Sepsis Criteria: Recorded Temperature greater than 38.3C or Less than 36C, Recorded Heart Rate greater than 90 bpm, WBC count greater than 10% bands, WBC count greater than 12,000 or less than 4000, STRIP POLISHER: altered consciousness (unrelated to primary neuro pathology) Assessment/Plan - Problem List (1) Sepsis Impression: 2/27 UA culture and sensitivity study reveals positive to Ecoli, and sensitivity to most antibiotics blood culture one bottle is positive preliminarily today WBC is 15, pt has no fever or chill, continue Cefepime 09/16 pt present significant elevated WBC, UTI, and CHARLES, which indicate pre- sepsis/sepsis IVF of NS treated with antibiotics Cefepime with renal adjusted Cr dosage lab and vital monitor (2) Bacteremia blood culture one bottle is positive for Ecoli preliminarily, it appear from UTI. pt has no fever, chill, WBC is down to 15 from continue Cefepime vital and lab monitor (3) UTI (urinary tract infection) Conclusion/Plan: 09/17 sensitive study reveals sensitive to most antibiotics, sensitive to current antibiotics, Cefepime continue Cefepime 09/16UA is positive for Ecoli but sensitivity study is pending continue treated with Cefepime followup sensitivity study (4) Pancreatitis Conclusion/Plan: 09/17 resolved. pt tolerate diet and no N/V 09/16Lipase is down to normal, pt denies abdominal pain (5) Methamphetamine abuse Conclusion/Plan: UDS reveals pt is positive for meth. advise pt quit continue IVF, precaution of possible meth withdrawal (6) Severe dehydration Conclusion/Plan: continue IVF of NS continue lab monitor (7) ARF (acute renal failure) 09/17 improved, today Creatinine is 1.7 from 2.8 at admission continue IVF lab monitor improved, creatinine today is 2.0 from previous 2.8 continue IVF, and lab monitor pt (8) Ataxia Conclusion/Plan: 09/17 improved, continue PT/OT Sec to multifactorial cause (i.e meth use, dehydration UTI/sepsis), PT to follow (9) Diabetes mellitus with hyperglycemia 09/17 pt report she actually she did not take any Metformin at home because she could not find it per she report. She refused to use insulin at home when she is discharged. continue slide scan 09/16 pt took Metformin at home. now pt has CHARLES, and uncontrolled hyperglycemia and A1C 9.4. Not we start on insulin for pt Lantus 10 unit on night Slide scale for insulin ACHS, hypoglycemia protocol lab monitor (10) Hypokalemia Conclusion/Plan: 09/17 replace and lab monitor resolved (11) hyponatremia 09/17 Na 130, continue IVF of NS, lab monitor 09/16 today Na is 129, it appear from pt's worsening renal function continue IVF of NS recheck lab and monitor kidney function. Qualifiers: Sepsis type: Escherichia coli Qualified Code(s): A41.51 - Sepsis due to Escherichia coli [E. coli]
[2018-09-17] MEDS: ATORVASTATIN 10 MG TABLET PO SCH (21:23)
[2018-09-17] MEDS: INSULIN GLARGINE 300 UNIT/3 ML PEN SUBQ SCH (21:25)
[2018-09-18] MEDS: SODIUM CHLORIDE 0.9% 1,000 ML IV SCH ×3 (02:22→21:38)
[2018-09-18 06:21] LABS: BASOPHILS % (AUTO) 0.3 %; EOSINOPHILS % (AUTO) 0.5 %; HGB - HEMOGLOBIN 11.4 g/dL (12.0-16.0); LYMPHOCYTES % (AUTO) 9.7 %; MEAN CORPUSCULAR HEMOGLOBIN 30.3 pg (27.0-31.0); MEAN CORPUSCULAR HGB CONC 33.5 g/dL (32.0-36.0); MEAN CORPUSCULAR VOLUME 90.5 fL (81.0-99.0); MEAN PLATELET VOLUME 7.4 fL (7.9-10.8); MONOCYTES % (AUTO) 5.2 %; NEUTROPHILS % (AUTO) 84.3 %; PLT - PLATELET COUNT 286 10^3/uL (130-450); RED BLOOD COUNT 3.75 10^6/uL (4.20-5.40); RED CELL DISTRIBUTION WIDTH 14.2 % (12.0-15.0); WHITE BLOOD COUNT 15.2 x10^3/uL (4.8-10.8)
[2018-09-18 06:23] LABS: ABNORMAL LYMPHS % (MANUAL) 0 %
[2018-09-18 06:28] LABS: ALBUMIN 2.1 g/dL (3.2-5.5); ALBUMIN/GLOBULIN RATIO 0.4 (1.0-2.2); BILIRUBIN,TOTAL 0.9 mg/dL (0.2-1.0); CREATININE 1.3 mg/dL (0.4-1.0); TOTAL PROTEIN 6.9 g/dL (6.7-8.2)
[2018-09-18 06:58] LABS: BAND NEUTROPHILS % (MANUAL) 6 %; DIFFERENTIAL COMMENT MANUAL DIFFERENTIAL; LYMPHOCYTES # (MANUAL) 1.2 10^3/uL (1.5-3.5); LYMPHOCYTES % (MANUAL) 8 %; METAMYELOCYTES % (MANUAL) 1 %; MONOCYTES # (MANUAL) 0.5 10^3/uL (0.0-1.0); MYELOCYTES % (MANUAL) 1 %; NEUTROPHILS # (MANUAL) 13.2 10^3/uL (1.5-6.6); NEUTROPHILS % (MANUAL) 81 %; PLATELET ESTIMATE, MANUAL NORMAL (130-450,000) (NORMAL); RBC MORPHOLOGY (MULTIPLE) NORMAL APPEARANCE (NORMAL)
[2018-09-18] MEDS: PANTOPRAZOLE 40 MG TABLET PO SCH (07:11)
[2018-09-18] MEDS: HYOSCYAMINE SL 0.125 MG TABLET SL SCH ×3 (07:11→21:38)
[2018-09-18] MEDS ORDERED: cloNIDine 0.1 MG TABLET PO PRN (07:38)
[2018-09-18] MEDS ORDERED: POTASSIUM CHLORIDE 20 MEQ TABLET PO ONE (07:48)
[2018-09-18] MEDS ORDERED: CEFEPIME 1 GM in SODIUM CHLORIDE 0.9% MINIBAG 100 ML IV SCH (08:00)
[2018-09-18] MEDS: HEPARIN 5,000 UNIT/ML VIAL SUBQ SCH ×2 (09:09→20:55)
[2018-09-18] MEDS: POLYETHYLENE GLYCOL 3350 17 GM PACKET PO SCH (09:10)
[2018-09-18] MEDS: SODIUM CHLORIDE FLUSH 0.9% 10 ML SYRINGE IVP SCH ×2 (09:11→17:02)
[2018-09-18] MEDS: INSULIN ASPART 300 UNIT/3 ML PEN SUBQ SCH ×4 (09:12→20:46)
[2018-09-18] MEDS: DOCUSATE SODIUM 250 MG CAPSULE PO SCH (09:30)
[2018-09-18] MEDS: SENNA 8.6 MG TABLET PO SCH (09:30)
[2018-09-18] MEDS ORDERED: LORazepam 0.5 MG TABLET PO SCH (10:00)
--- NOTE | 2018-09-18 11:44 | PROVIDER PROGRESS NOTE ---
Subjective - Prog Note Date Prog Note Date: 09/18/18 - Subjective Pt reports feeling: Improved Subjective: pt feel better and is siting at chair to eat her breakfast. she denies fever, chill, chest pain, shortness of breath. Current Medications - Current Medications Current Medications: Active Medications Albuterol () 2.5 mg INH RTQ4H PRN PRN Reason: Wheezing Atorvastatin Calcium (Lipitor) 20 mg PO QPM [facility] Last Admin: 09/17/18 21:23 Dose: 20 mg Clonidine HCl (Catapres) 0.2 mg PO BID PRN PRN Reason: Hypertensive Emergency Docusate Sodium (Colace 250mg Capsule) 250 - 500 mg PO DAILY [facility] Last Admin: 09/18/18 09:30 Dose: 250 mg Gabapentin (Neurontin) 100 mg PO QPM [facility] Heparin Sodium (Porcine) () 5,000 unit SUBQ BID [facility] Last Admin: 09/18/18 09:09 Dose: 5,000 unit Hyoscyamine (Levsin) 0.125 mg SL TID [facility] Last Admin: 09/18/18 07:11 Dose: 0.125 mg Sodium Chloride (Normal Saline 0.9%) 1,000 mls @ 100 mls/hr IV .Q10H [facility] Last Admin: 09/18/18 09:10 Dose: 100 mls/hr Cefepime HCl 1 gm/ Sodium (Chloride) 100 mls @ 200 mls/hr IV TID [facility] Insulin Aspart (Novolog) 3 - 11 unit SUBQ 0800,1200,1700,2100 [facility]; Protocol Last Admin: 09/18/18 11:19 Dose: 7 unit Insulin Glargine (Lantus Solostar) 10 unit SUBQ QPM [facility] Last Admin: 09/17/18 21:25 Dose: 10 unit Lisinopril (Zestril) 10 mg PO DAILY [facility] Last Admin: 09/18/18 11:19 Dose: 10 mg Multi-Ingredient Mouthwash/Gargle () 30 ml PO Q4HR PRN PRN Reason: Abdominal Pain Ondansetron HCl (Zofran Inj) 4 mg IVP Q6HR PRN PRN Reason: Nausea / Vomiting Ondansetron HCl (Zofran Odt) 4 mg TL Q6HR PRN PRN Reason: Nausea / Vomiting Pantoprazole Sodium (Protonix) 40 mg PO QDAC [facility] Last Admin: 09/18/18 07:11 Dose: 40 mg Polyethylene Glycol (Miralax) 17 gm PO DAILY [facility] Last Admin: 09/18/18 09:10 Dose: 17 gm Senna (Senokot) 8.6 - 17.2 mg PO DAILY [facility] Last Admin: 09/18/18 09:30 Dose: 8.6 mg Sodium Chloride (Normal Saline Flush 0.9%) 10 ml IVP PRN PRN PRN Reason: NEEDED PER PROVIDER ORDERS Last Admin: 09/17/18 06:38 Dose: 10 ml Sodium Chloride (Normal Saline Flush 0.9%) 10 ml IVP 0100,0900,1700 [facility] Last Admin: 09/18/18 09:11 Dose: 10 ml metFORMIN [Glucophage] 1,000 mg PO BID 03/26/13 Lisinopril 10 mg PO DAILY 06/29/18 Atorvastatin [Lipitor] 20 mg ORAL QPM 09/15/18 Albuterol Sulfate [Albuterol Sulfate Hfa] 2 puffs INH Q4H PRN 09/16/18 Gabapentin 100 mg PO DAILY 09/16/18 Objective - Vital Signs/Intake & Output Reviewed Vital Signs: Yes Vital Signs: Vital Signs x48h Temp Pulse Pulse Resp BP Pulse Ox 09/18/18 11:23 81 151/74 H 09/18/18 08:31 86 14 09/18/18 07:29 36.7 C 82 20 166/80 H 97 Intake & Output: Intake & Output 09/15/18 09/16/18 09/17/18 09/18/18 23:59 23:59 23:59 23:59 Intake Total 3700 3556.667 5110 2814 Output Total 2900 5060 3150 Balance 3700 656.667 50 -336 - Objective General Appearance: positive: No acute distress, Alert. negative: Lethargic Eyes Bilateral: positive: Normal inspection, PERRL, No lid inflammation, Conjunctivae nml ENT: positive: ENT inspection nml, Pharynx nml, No signs of dehydration. negative: Purulent nasal drainage, Pharyngeal erythema, Oral lesions Neck: positive: Nml inspection, Thyroid nml, No JVD, Trachea midline. negative: Thyromegaly, Lymphadenopathy (R), Lymphadenopathy (L), Stiff neck, Swelling/bruising, Tracheal deviation Respiratory: positive: Chest non-tender, No respiratory distress, Breath sounds nml. negative: Wheezes, Rales, Rhonchi Cardiovascular: positive: Regular rate & rhythm, No murmur, No gallop. negative: Irregularly irregular, Extrasystoles, Tachycardia, Bradycardia, JVD present, Systolic murmur, Diastolic murmur Peripheral Pulses: 2+ Radial (R), 2+ Radial (L), 2+ Dorsalis pedis (R), 2+ Dorsalis pedis (L) Abdomen: positive: Non-tender, No organomegaly, Nml bowel sounds, No distention. negative: Tenderness, Guarding, Rebound Back: positive: Nml inspection. negative: CVA tenderness (R), CVA tenderness (L) Skin: positive: Color nml, No rash, Warm, Dry. negative: Cyanosis, Diaphoresis, Pallor Extremities: positive: Non-tender, Full ROM, Nml appearance. negative: Calf tenderness, Joint swelling, Kaleigh's sign/cords Neurologic/Psychiatric: positive: Oriented x3, Sensation nml, Mood/affect nml. negative: Weakness, Sensory loss, Facial droop, Slurred/abnml speech, Depressed mood/affect - Lab Results Fish Bones: 09/18/18 06:05 09/18/18 06:05 Other Labs: Lab Results x24hrs 09/18/18 09/18/18 09/18/18 Range/Units 11:09 07:20 06:05 WBC (4.8-10.8) x10^3/uL RBC (4.20-5.40) 10^6/uL Hgb (12.0-16.0) g/dL Hct (37.0-47.0) % MCV (81.0-99.0) fL MCH (27.0-31.0) pg MCHC (32.0-36.0) g/dL RDW (12.0-15.0) % Plt Count (130-450) 10^3/uL MPV (7.9-10.8) fL Neut # (Auto) Lymph # (Auto) Arthur # (Auto) Eos # (Auto) Baso # (Auto) Absolute Nucleated RBC Total Counted Band Neuts % (Manual) (0 - 10) % Abnorm Lymph % (Manual) % Metamyelocytes % ( - 0) % Myelocytes % ( - 0) % Nucleated RBC % Neutrophils # (Manual) (1.5-6.6) 10^3/uL Lymphocytes # (Manual) (1.5-3.5) 10^3/uL Monocytes # (Manual) (0.0-1.0) 10^3/uL Eosinophils # (Manual) (0-0.7) 10^3/uL Basophils # (Manual) (0-0.1) 10^3/uL Differential Comment Platelet Estimate (NORMAL) RBC Morph Micro Appear (NORMAL) Sodium 134 L (135-145) mmol/L Potassium 3.4 L (3.5-5.0) mmol/L Chloride 103 (101-111) mmol/L Carbon Dioxide 21 (21-32) mmol/L Anion Gap 10.0 (6-13) BUN 18 (6-20) mg/dL Creatinine 1.3 H (0.4-1.0) mg/dL Estimated GFR (MDRD) 42 L (>89) Glucose 139 H (70-100) mg/dL POC Whole Bld Glucose 261 H 182 H (70 - 100) mg/dL Calcium 8.0 L (8.5-10.3) mg/dL Total Bilirubin 0.9 (0.2-1.0) mg/dL AST 27 (10-42) IU/L ALT 32 (10-60) IU/L Alkaline Phosphatase 173 H (42-121) IU/L Total Protein 6.9 (6.7-8.2) g/dL Albumin 2.1 L (3.2-5.5) g/dL Globulin 4.8 H (2.1-4.2) g/dL Albumin/Globulin Ratio 0.4 L (1.0-2.2) 09/18/18 09/17/18 09/17/18 Range/Units 06:05 20:22 16:21 WBC 15.2 H (4.8-10.8) x10^3/uL RBC 3.75 L (4.20-5.40) 10^6/uL Hgb 11.4 L (12.0-16.0) g/dL Hct 34.0 L (37.0-47.0) % MCV 90.5 (81.0-99.0) fL MCH 30.3 (27.0-31.0) pg MCHC 33.5 (32.0-36.0) g/dL RDW 14.2 (12.0-15.0) % Plt Count 286 (130-450) 10^3/uL MPV 7.4 L (7.9-10.8) fL Neut # (Auto) Not Reportable Lymph # (Auto) Not Reportable Arthur # (Auto) Not Reportable Eos # (Auto) Not Reportable Baso # (Auto) Not Reportable Absolute Nucleated RBC Not Reportable Total Counted 100 Band Neuts % (Manual) 6 (0 - 10) % Abnorm Lymph % (Manual) 0 % Metamyelocytes % 1 H ( - 0) % Myelocytes % 1 H ( - 0) % Nucleated RBC % Not Reportable Neutrophils # (Manual) 13.2 H (1.5-6.6) 10^3/uL Lymphocytes # (Manual) 1.2 L (1.5-3.5) 10^3/uL Monocytes # (Manual) 0.5 (0.0-1.0) 10^3/uL Eosinophils # (Manual) 0.0 (0-0.7) 10^3/uL Basophils # (Manual) 0.0 (0-0.1) 10^3/uL Differential Comment MANUAL DIFFERENTIAL Platelet Estimate NORMAL (130-450,000) (NORMAL) RBC Morph Micro Appear NORMAL APPEARANCE (NORMAL) Sodium (135-145) mmol/L Potassium (3.5-5.0) mmol/L Chloride (101-111) mmol/L Carbon Dioxide (21-32) mmol/L Anion Gap (6-13) BUN (6-20) mg/dL Creatinine (0.4-1.0) mg/dL Estimated GFR (MDRD) (>89) Glucose (70-100) mg/dL POC Whole Bld Glucose 223 H 244 H (70 - 100) mg/dL Calcium (8.5-10.3) mg/dL Total Bilirubin (0.2-1.0) mg/dL AST (10-42) IU/L ALT (10-60) IU/L Alkaline Phosphatase (42-121) IU/L Total Protein (6.7-8.2) g/dL Albumin (3.2-5.5) g/dL Globulin (2.1-4.2) g/dL Albumin/Globulin Ratio (1.0-2.2) ABX Reporting Has patient been on IV antibiotics over the past 48 hours?: Yes Sepsis Event Note (H) - Evaluation Current Stage of Sepsis: Sepsis Possible source of Sepsis: positive: Genitourinary - Sepsis Criteria Sepsis Criteria: Recorded Temperature greater than 38.3C or Less than 36C, Recorded Heart Rate greater than 90 bpm, WBC count greater than 10% bands, WBC count greater than 12,000 or less than 4000, POLICE COMMUNICATIONS DISPATCHER: altered consciousness (unrelat ed to primary neuro pathology) Assessment/Plan - Problem List (1) Sepsis Impression: 09/18 pt's blood culture and sensitivity study reveals positive for Ecoli and sensitive to most antibiotics, including Cefepime. Pt's WBC is still 15. pt had 2g cefepime daily, not bid,because of reduced kidney function. now renal function significant improved. increase to Tid of Cefepime 1g daily followup vital and 09/17 UA culture and sensitivity study reveals positive to Ecoli, and sensitivity to most antibiotics blood culture one bottle is positive preliminarily today WBC is 15, pt has no fever or chill, continue Cefepime 09/16 pt present significant elevated WBC, UTI, and CHARLES, which indicate pre- sepsis/sepsis IVF of NS treated with antibiotics Cefepime with renal adjusted Cr dosage lab and vital monitor (2) Bacteremia 09/18 blood culture reveals positive for Ecoli, and sensitive to most ant ibiotics, including Cefepime. continue tid of cefepime blood culture one bottle is positive for Ecoli preliminarily, it appear from UTI. pt has no fever, chill, WBC is down to 15 from continue Cefepime vital and lab monitor (3) UTI (urinary tract infection) Conclusion/Plan: 09/17 sensitive study reveals sensitive to most antibiotics, sensitive to current antibiotics, Cefepime continue Cefepime 09/16UA is positive for Ecoli but sensitivity study is pending continue treated with Cefepime followup sensitivity study (4) Pancreatitis Conclusion/Plan: 09/17 resolved. pt tolerate diet and no N/V 09/16Lipase is down to normal, pt denies abdominal pain (5) Methamphetamine abuse Conclusion/Plan: UDS reveals pt is positive for meth. advise pt quit continue IVF, precaution of possible meth withdrawal (6) Severe dehydration Conclusion/Plan: continue IVF of NS continue lab monitor (7) ARF (acute renal failure) 09/18 continue improved, today creatinine is 1.3 , continue IVF of NS, lab monitor 09/17 improved, today Creatinine is 1.7 from 2.8 at admission continue IVF lab monitor improved, creatinine today is 2.0 from previous 2.8 continue IVF, and lab monitor pt (8) Ataxia Conclusion/Plan: 09/17 improved, continue PT/OT Sec to multifactorial cause (i.e meth use, dehydration UTI/sepsis), PT to follow (9) Diabetes mellitus with hyperglycemia 09/18 Today morning glucose is 182, increase Lantus to 15 unit in PM, continue hypoglycemia protocol 09/17 pt report she actually she did not take any Metformin at home because she could not find it per she report. She refused to use insulin at home when she is discharged. continue slide scan 09/16 pt took Metformin at home. now pt has CHARLES, and uncontrolled hyperglycemia and A1C 9.4. Not we start on insulin for pt Lantus 10 unit on night Slide scale for insulin ACHS, hypoglycemia protocol lab monitor (10) Hypokalemia Conclusion/Plan: 09/17 replace and lab monitor resolved (11) hyponatremia 09/18 improved to 134, continue IVF of NS, lab monitor 09/17 Na 130, continue IVF of NS, lab monitor 09/16 today Na is 129, it appear from pt's worsening renal function continue IVF of NS recheck lab and monitor kidney function. Qualifiers: Sepsis type: Escherichia coli Qualified Code(s): A41.51 - Sepsis due to Escherichia coli [E. coli]
[2018-09-18] MEDS ORDERED: LISINOPRIL 5 MG TABLET PO SCH (12:00)
[2018-09-18] MEDS: CEFEPIME 1 GM in SODIUM CHLORIDE 0.9% MINIBAG 100 ML IV SCH ×2 (13:25→21:38)
[2018-09-18] MEDS: ATORVASTATIN 10 MG TABLET PO SCH (20:46)
[2018-09-18] MEDS: GABAPENTIN 100 MG CAPSULE PO SCH (20:46)
[2018-09-18] MEDS: INSULIN GLARGINE 300 UNIT/3 ML PEN SUBQ SCH (20:47)
[2018-09-19] MEDS: SODIUM CHLORIDE FLUSH 0.9% 10 ML SYRINGE IVP SCH ×3 (02:11→16:51)
[2018-09-19 05:45] LABS: ALBUMIN/GLOBULIN RATIO 0.5 (1.0-2.2); BASOPHILS % (AUTO) 0.3 %; BILIRUBIN,TOTAL 0.8 mg/dL (0.2-1.0); CALCIUM 7.8 mg/dL (8.5-10.3); CREATININE 1.2 mg/dL (0.4-1.0); EOSINOPHILS % (AUTO) 0.7 %; HGB - HEMOGLOBIN 10.7 g/dL (12.0-16.0); LYMPHOCYTES % (AUTO) 11.4 %; MEAN CORPUSCULAR HEMOGLOBIN 30.1 pg (27.0-31.0); MEAN CORPUSCULAR HGB CONC 32.8 g/dL (32.0-36.0); MEAN CORPUSCULAR VOLUME 91.9 fL (81.0-99.0); MEAN PLATELET VOLUME 7.4 fL (7.9-10.8); MONOCYTES % (AUTO) 5.7 %; NEUTROPHILS % (AUTO) 81.9 %; PLT - PLATELET COUNT 274 10^3/uL (130-450); RED BLOOD COUNT 3.57 10^6/uL (4.20-5.40); RED CELL DISTRIBUTION WIDTH 14.3 % (12.0-15.0); TOTAL PROTEIN 6.3 g/dL (6.7-8.2); WHITE BLOOD COUNT 12.8 x10^3/uL (4.8-10.8)
[2018-09-19 05:50] LABS: ABNORMAL LYMPHS % (MANUAL) 0 %
[2018-09-19] MEDS: HYOSCYAMINE SL 0.125 MG TABLET SL SCH ×3 (05:54→21:03)
[2018-09-19] MEDS: CEFEPIME 1 GM in SODIUM CHLORIDE 0.9% MINIBAG 100 ML IV SCH (05:55)
[2018-09-19] MEDS: PANTOPRAZOLE 40 MG TABLET PO SCH (05:56)
[2018-09-19 06:14] LABS: BAND NEUTROPHILS % (MANUAL) 8 %; LYMPHOCYTES # (MANUAL) 1.9 10^3/uL (1.5-3.5); LYMPHOCYTES % (MANUAL) 15 %; METAMYELOCYTES % (MANUAL) 2 %; MONOCYTES # (MANUAL) 0.6 10^3/uL (0.0-1.0); MYELOCYTES % (MANUAL) 1 %; NEUTROPHILS # (MANUAL) 9.9 10^3/uL (1.5-6.6); NEUTROPHILS % (MANUAL) 69 %; PLATELET ESTIMATE, MANUAL NORMAL (130-450,000) (NORMAL); RBC MORPHOLOGY (MULTIPLE) NORMAL APPEARANCE (NORMAL)
[2018-09-19 06:15] LABS: DIFFERENTIAL COMMENT MANUAL DIFFERENTIAL
[2018-09-19] MEDS: HEPARIN 5,000 UNIT/ML VIAL SUBQ SCH ×2 (09:20→20:40)
[2018-09-19] MEDS: INSULIN ASPART 300 UNIT/3 ML PEN SUBQ SCH ×4 (09:21→20:38)
[2018-09-19] MEDS: POLYETHYLENE GLYCOL 3350 17 GM PACKET PO SCH (09:22)
[2018-09-19] MEDS: DOCUSATE SODIUM 250 MG CAPSULE PO SCH (09:22)
[2018-09-19] MEDS: SODIUM CHLORIDE 0.9% 1,000 ML IV SCH (09:23)
[2018-09-19] MEDS: SENNA 8.6 MG TABLET PO SCH (09:29)
[2018-09-19] MEDS ORDERED: SODIUM CHLORIDE 0.9% 1,000 ML IV SCH (10:20)
[2018-09-19] MEDS ORDERED: POTASSIUM CHLORIDE 20 MEQ TABLET PO ONE (10:21)
--- NOTE | 2018-09-19 10:23 | PROVIDER PROGRESS NOTE ---
Subjective - Prog Note Date Prog Note Date: 09/19/18 Prog Note Time: 07:45 - Subjective Subjective: Patient reports that she didnt sleep well WBC 12.8 today Afebrile On cefepime SCr 1.2, from 1.3 yesterday Potassium 3.1, magnesium 1.5 She is upset that she is not discharging home today Current Medications - Current Medications Current Medications: Albuterol () 2.5 mg INH RTQ4H PRN PRN Reason: Wheezing Atorvastatin Calcium (Lipitor) 20 mg PO QPM [facility] Last Admin: 09/18/18 20:46 Dose: 20 mg Clonidine HCl (Catapres) 0.2 mg PO BID PRN PRN Reason: Hypertensive Emergency Docusate Sodium (Colace 250mg Capsule) 250 - 500 mg PO DAILY [facility] Last Admin: 09/19/18 09:22 Dose: 250 mg Gabapentin (Neurontin) 100 mg PO QPM [facility] Last Admin: 09/18/18 20:46 Dose: 100 mg Heparin Sodium (Porcine) () 5,000 unit SUBQ BID [facility] Last Admin: 09/19/18 09:20 Dose: 5,000 unit Hyoscyamine (Levsin) 0.125 mg SL TID [facility] Last Admin: 09/19/18 05:54 Dose: 0.125 mg Sodium Chloride (Normal Saline 0.9%) 1,000 mls @ 50 mls/hr IV .Q20H [facility] Stop: 09/19/18 20:00 Insulin Aspart (Novolog) 3 - 11 unit SUBQ 0800,1200,1700,2100 [facility]; Protocol Last Admin: 09/19/18 12:22 Dose: 7 unit Insulin Glargine (Lantus Solostar) 15 unit SUBQ QPM [facility] Last Admin: 09/18/18 20:47 Dose: 15 unit Multi-Ingredient Mouthwash/Gargle () 30 ml PO Q4HR PRN PRN Reason: Abdominal Pain Nitrofurantoin (Macrobid) 100 mg PO BID [facility] Ondansetron HCl (Zofran Inj) 4 mg IVP Q6HR PRN PRN Reason: Nausea / Vomiting Ondansetron HCl (Zofran Odt) 4 mg TL Q6HR PRN PRN Reason: Nausea / Vomiting Pantoprazole Sodium (Protonix) 40 mg PO QDAC [facility] Last Admin: 09/19/18 05:56 Dose: 40 mg Polyethylene Glycol (Miralax) 17 gm PO DAILY [facility] Last Admin: 09/19/18 09:22 Dose: 17 gm Senna (Senokot) 8.6 - 17.2 mg PO DAILY [facility] Last Admin: 09/19/18 09:29 Dose: 8.6 mg Sodium Chloride (Normal Saline Flush 0.9%) 10 ml IVP PRN PRN PRN Reason: NEEDED PER PROVIDER ORDERS Last Admin: 09/17/18 06:38 Dose: 10 ml Sodium Chloride (Normal Saline Flush 0.9%) 10 ml IVP 0100,0900,1700 [facility] Last Admin: 09/19/18 09:23 Dose: Not Given Home Medications: metFORMIN [Glucophage] 1,000 mg PO BID 03/26/13 Lisinopril 10 mg PO DAILY 06/29/18 Atorvastatin [Lipitor] 20 mg ORAL QPM 09/15/18 Albuterol Sulfate [Albuterol Sulfate Hfa] 2 puffs INH Q4H PRN 09/16/18 Gabapentin 100 mg PO DAILY 09/16/18 Objective - Vital Signs/Intake & Output Reviewed Vital Signs: Yes Vital Signs: Vital Signs x48h Temp Pulse Resp BP Pulse Ox 09/19/18 08:00 36.3 C L 88 18 155/75 H 100 Intake & Output: Intake & Output 09/16/18 09/17/18 09/18/18 09/19/18 23:59 23:59 23:59 23:59 Intake Total 3556.667 5110 6844 2560 Output Total 2900 5060 5250 Balance 656.982 05 8677 2560 - Objective General Appearance: positive: No acute distress, Alert Eyes Bilateral: positive: Normal inspection, PERRL, EOMI ENT: positive: ENT inspection nml, Pharynx nml, No signs of dehydration Neck: positive: Nml inspection, Trachea midline Respiratory: positive: Chest non-tender, No respiratory distress, Breath sounds nml. negative: Wheezes, Rales, Rhonchi Cardiovascular: positive: Regular rate & rhythm, No murmur, No gallop Peripheral Pulses: 2+ Dorsalis pedis (R), 2+ Dorsalis pedis (L) Abdomen: positive: Non-tender, No organomegaly, Nml bowel sounds, No distention Skin: positive: Color nml, Warm, Dry, Other (chronic wound to plantar aspect of third toe) Neurologic/Psychiatric: positive: Oriented x3, CN's nml (2-12), Motor nml, Sensation nml, Other (labile emotions during visit, ranged from pleasant to annoyed) - Lab Results Fish Bones: 09/19/18 05:15 09/19/18 05:15 Other Labs: Lab Results x24hrs 09/19/18 09/19/18 09/19/18 Range/Units 07:24 05:15 05:15 WBC (4.8-10.8) x10^3/uL RBC (4.20-5.40) 10^6/uL Hgb (12.0-16.0) g/dL Hct (37.0-47.0) % MCV (81.0-99.0) fL MCH (27.0-31.0) pg MCHC (32.0-36.0) g/dL RDW (12.0-15.0) % Plt Count (130-450) 10^3/uL MPV (7.9-10.8) fL Neut # (Auto) Lymph # (Auto) [place] # (Auto) Eos # (Auto) Baso # (Auto) Absolute Nucleated RBC Total Counted Band Neuts % (Manual) (0 - 10) % Abnorm Lymph % (Manual) % Metamyelocytes % ( - 0) % Myelocytes % ( - 0) % Nucleated RBC % Neutrophils # (Manual) (1.5-6.6) 10^3/uL Lymphocytes # (Manual) (1.5-3.5) 10^3/uL Monocytes # (Manual) (0.0-1.0) 10^3/uL Eosinophils # (Manual) (0-0.7) 10^3/uL Basophils # (Manual) (0-0.1) 10^3/uL Differential Comment Platelet Estimate (NORMAL) RBC Morph Micro Appear (NORMAL) Sodium 135 (135-145) mmol/L Potassium 3.1 L (3.5-5.0) mmol/L Chloride 103 (101-111) mmol/L Carbon Dioxide 24 (21-32) mmol/L Anion Gap 8.0 (6-13) BUN 15 (6-20) mg/dL Creatinine 1.2 H (0.4-1.0) mg/dL Estimated GFR (MDRD) 46 L (>89) Glucose 186 H (70-100) mg/dL POC Whole Bld Glucose 162 H (70 - 100) mg/dL Calcium 7.8 L (8.5-10.3) mg/dL Magnesium 1.5 L (1.7-2.8) mg/dL Total Bilirubin 0.8 (0.2-1.0) mg/dL AST 20 (10-42) IU/L ALT 26 (10-60) IU/L Alkaline Phosphatase 143 H (42-121) IU/L Total Protein 6.3 L (6.7-8.2) g/dL Albumin 2.0 L (3.2-5.5) g/dL Globulin 4.3 H (2.1-4.2) g/dL Albumin/Globulin Ratio 0.5 L (1.0-2.2) 09/19/18 09/18/18 09/18/18 Range/Units 05:15 20:32 16:28 WBC 12.8 H (4.8-10.8) x10^3/uL RBC 3.57 L (4.20-5.40) 10^6/uL Hgb 10.7 L (12.0-16.0) g/dL Hct 32.8 L (37.0-47.0) % MCV 91.9 (81.0-99.0) fL MCH 30.1 (27.0-31.0) pg MCHC 32.8 (32.0-36.0) g/dL RDW 14.3 (12.0-15.0) % Plt Count 274 (130-450) 10^3/uL MPV 7.4 L (7.9-10.8) fL Neut # (Auto) Not Reportable Lymph # (Auto) Not Reportable [place] # (Auto) Not Reportable Eos # (Auto) Not Reportable Baso # (Auto) Not Reportable Absolute Nucleated RBC Not Reportable Total Counted 100 Band Neuts % (Manual) 8 (0 - 10) % Abnorm Lymph % (Manual) 0 % Metamyelocytes % 2 H ( - 0) % Myelocytes % 1 H ( - 0) % Nucleated RBC % Not Reportable Neutrophils # (Manual) 9.9 H (1.5-6.6) 10^3/uL Lymphocytes # (Manual) 1.9 (1.5-3.5) 10^3/uL Monocytes # (Manual) 0.6 (0.0-1.0) 10^3/uL Eosinophils # (Manual) 0.0 (0-0.7) 10^3/uL Basophils # (Manual) 0.0 (0-0.1) 10^3/uL Differential Comment MANUAL DIFFERENTIAL Platelet Estimate NORMAL (130-450,000) (NORMAL) RBC Morph Micro Appear NORMAL APPEARANCE (NORMAL) Sodium (135-145) mmol/L Potassium (3.5-5.0) mmol/L Chloride (101-111) mmol/L Carbon Dioxide (21-32) mmol/L Anion Gap (6-13) BUN (6-20) mg/dL Creatinine (0.4-1.0) mg/dL Estimated GFR (MDRD) (>89) Glucose (70-100) mg/dL POC Whole Bld Glucose 216 H 161 H (70 - 100) mg/dL Calcium (8.5-10.3) mg/dL Magnesium (1.7-2.8) mg/dL Total Bilirubin (0.2-1.0) mg/dL AST (10-42) IU/L ALT (10-60) IU/L Alkaline Phosphatase (42-121) IU/L Total Protein (6.7-8.2) g/dL Albumin (3.2-5.5) g/dL Globulin (2.1-4.2) g/dL Albumin/Globulin Ratio (1.0-2.2) 09/18/18 Range/Units 11:09 WBC (4.8-10.8) x10^3/uL RBC (4.20-5.40) 10^6/uL Hgb (12.0-16.0) g/dL Hct (37.0-47.0) % MCV (81.0-99.0) fL MCH (27.0-31.0) pg MCHC (32.0-36.0) g/dL RDW (12.0-15.0) % Plt Count (130-450) 10^3/uL MPV (7.9-10.8) fL Neut # (Auto) Lymph # (Auto) [place] # (Auto) Eos # (Auto) Baso # (Auto) Absolute Nucleated RBC Total Counted Band Neuts % (Manual) (0 - 10) % Abnorm Lymph % (Manual) % Metamyelocytes % ( - 0) % Myelocytes % ( - 0) % Nucleated RBC % Neutrophils # (Manual) (1.5-6.6) 10^3/uL Lymphocytes # (Manual) (1.5-3.5) 10^3/uL Monocytes # (Manual) (0.0-1.0) 10^3/uL Eosinophils # (Manual) (0-0.7) 10^3/uL Basophils # (Manual) (0-0.1) 10^3/uL Differential Comment Platelet Estimate (NORMAL) RBC Morph Micro Appear (NORMAL) Sodium (135-145) mmol/L Potassium (3.5-5.0) mmol/L Chloride (101-111) mmol/L Carbon Dioxide (21-32) mmol/L Anion Gap (6-13) BUN (6-20) mg/dL Creatinine (0.4-1.0) mg/dL Estimated GFR (MDRD) (>89) Glucose (70-100) mg/dL POC Whole Bld Glucose 261 H (70 - 100) mg/dL Calcium (8.5-10.3) mg/dL Magnesium (1.7-2.8) mg/dL Total Bilirubin (0.2-1.0) mg/dL AST (10-42) IU/L ALT (10-60) IU/L Alkaline Phosphatase (42-121) IU/L Total Protein (6.7-8.2) g/dL Albumin (3.2-5.5) g/dL Globulin (2.1-4.2) g/dL Albumin/Globulin Ratio (1.0-2.2) ABX Reporting Has patient been on IV antibiotics over the past 48 hours?: Yes Assessment/Plan - Problem List (1) UTI (urinary tract infection) Impression: c/b sepsis and bacteremia. On admission, she had significantly elevated WBC with CHARLES. Urine culture and blood cultures positive for funk-sensitive e.coli. She was treated with cefepime. She has multiple antibiotic allergies. She has been afebrile and her WBC is 12.8 today Plan: change antibiotic regimen to nitrofurantoin monitor WBC and temperature curve if continues to improve, plan to discharge home tomorrow on PO antibiotics Qualifiers: Sepsis type: Escherichia coli Qualified Code(s): A41.51 - Sepsis due to Escherichia coli [E. coli] (2) ARF (acute renal failure) Impression: Admission SCr 2.8, creatinine continues to improve. Today 1.2. Plan: decrease IVF, plan to d/c later today vs tomorrow discontinue lisinopril continue to hold metformin f/u labs tomorrow morning (3) Methamphetamine abuse Impression: UDS reveals pt is positive for meth. Plan: advise pt quit continue IVF, decrease rate today precaution of possible meth withdrawal (4) Ataxia Impression: Sec to multifactorial cause (i.e meth use, dehydration UTI/sepsis) Plan: continue PT/OT (5) Diabetes mellitus with hyperglycemia Impression: Patient on metformin outpatient. Admitted with CHARLES and uncontrolled hyperglycemia with Hgb A1c of 9.4. Per report, patient not compliant with metformin at home. She was started on long acting insulin upon admission. Per previous provider, patient declined wanting to use insulin upon discharge, but today reports to me that if she needs to start insulin then she is amenable to it. She also reports that she does not really check her blood sugars at home. Plan: continue ACHS blood glucose monitoring continue JHA with SSI continue hypoglycemia protocol with improvement in kidney function, favor resuming metformin upon discharge vs another antihyperglycemic agent than starting patient on insulin therapy will request patient to follow-up with her primary care provider within 1 week from discharge to discuss pharmacologic therapy. (6) Hypokalemia: Impression: K 3.1 Plan: replace with KCL f/u labs in AM (7) Hypomagnesemia: Impression: Mg 1.5 Plan: replace with mag ox f/u labs in AM (8) hyponatremia, resolved (9) Pancreatitis, resolved (10) Severe dehydration, resolved
[2018-09-19] MEDS ORDERED: MAGNESIUM OXIDE 400 MG TABLET PO ONE (11:00)
[2018-09-19] MEDS: ATORVASTATIN 10 MG TABLET PO SCH (20:36)
[2018-09-19] MEDS: GABAPENTIN 100 MG CAPSULE PO SCH (20:37)
[2018-09-19] MEDS: NITROFURANTOIN MACRO 100 MG CAPSULE PO SCH (20:37)
[2018-09-19] MEDS: INSULIN GLARGINE 300 UNIT/3 ML PEN SUBQ SCH (20:39)
[2018-09-20] MEDS: SODIUM CHLORIDE FLUSH 0.9% 10 ML SYRINGE IVP SCH ×2 (01:17→08:49)
[2018-09-20] MEDS: SODIUM CHLORIDE FLUSH 0.9% 10 ML SYRINGE IVP PRN (01:28)
[2018-09-20] MEDS: HYOSCYAMINE SL 0.125 MG TABLET SL SCH ×2 (05:57→14:44)
[2018-09-20] MEDS: PANTOPRAZOLE 40 MG TABLET PO SCH (05:57)
[2018-09-20 06:09] LABS: BASOPHILS % (AUTO) 0.2 %; EOSINOPHILS % (AUTO) 0.7 %; HGB - HEMOGLOBIN 11.1 g/dL (12.0-16.0); LYMPHOCYTES % (AUTO) 12.4 %; MEAN CORPUSCULAR HEMOGLOBIN 29.8 pg (27.0-31.0); MEAN PLATELET VOLUME 7.1 fL (7.9-10.8); MONOCYTES % (AUTO) 5.6 %; NEUTROPHILS % (AUTO) 81.1 %; PLT - PLATELET COUNT 273 10^3/uL (130-450); RED BLOOD COUNT 3.73 10^6/uL (4.20-5.40); RED CELL DISTRIBUTION WIDTH 14.3 % (12.0-15.0); WHITE BLOOD COUNT 13.2 x10^3/uL (4.8-10.8)
[2018-09-20 06:21] LABS: ALBUMIN 2.2 g/dL (3.2-5.5); ALBUMIN/GLOBULIN RATIO 0.5 (1.0-2.2); BILIRUBIN,TOTAL 0.5 mg/dL (0.2-1.0); CALCIUM 7.9 mg/dL (8.5-10.3); CREATININE 1.1 mg/dL (0.4-1.0); TOTAL PROTEIN 6.8 g/dL (6.7-8.2)
[2018-09-20 06:48] LABS: ABNORMAL LYMPHS % (MANUAL) 0 %
[2018-09-20 06:51] LABS: BAND NEUTROPHILS % (MANUAL) 5 %; EOSINOPHILS # (MANUAL) 0.1 10^3/uL (0-0.7); LYMPHOCYTES # (MANUAL) 2.1 10^3/uL (1.5-3.5); LYMPHOCYTES % (MANUAL) 16 %; METAMYELOCYTES % (MANUAL) 2 %; MONOCYTES # (MANUAL) 1.3 10^3/uL (0.0-1.0); MYELOCYTES % (MANUAL) 3 %; NEUTROPHILS % (MANUAL) 63 %; PLATELET ESTIMATE, MANUAL NORMAL (130-450,000) (NORMAL)
[2018-09-20 06:52] LABS: RBC MORPHOLOGY (MULTIPLE) NORMAL APPEARANCE (NORMAL)
[2018-09-20] MEDS ORDERED: MAGNESIUM OXIDE 400 MG TABLET PO ONE (08:00)
[2018-09-20] MEDS ORDERED: POTASSIUM CHLORIDE 10 MEQ CAPSULE PO SCH (08:00)
[2018-09-20 08:24] VITALS: BP 160/81
[2018-09-20] MEDS: INSULIN ASPART 300 UNIT/3 ML PEN SUBQ SCH ×2 (08:40→13:00)
[2018-09-20] MEDS: DOCUSATE SODIUM 250 MG CAPSULE PO SCH (08:41)
[2018-09-20] MEDS: SENNA 8.6 MG TABLET PO SCH (08:41)
[2018-09-20] MEDS: NITROFURANTOIN MACRO 100 MG CAPSULE PO SCH (08:41)
[2018-09-20] MEDS: HEPARIN 5,000 UNIT/ML VIAL SUBQ SCH (08:44)
[2018-09-20] MEDS: POLYETHYLENE GLYCOL 3350 17 GM PACKET PO SCH (08:46)
--- NOTE | 2018-09-20 08:52 | DISCHARGE SUMMARY ---
"Discharge Summary Admit Date: 09/15/18 Discharge Date: 09/20/18 Discharging Provider: Milly CHASE Primary Care Provider: Kayla CHASE Condition at Discharge: Fair Discharge Disposition: 01 Home, Self Care - DIAGNOSES Admission Diagnoses: (1) Sepsis (2) UTI (urinary tract infection) (3) Pancreatitis (4) Methamphetamine abuse (5) Severe dehydration (6) ARF (acute renal failure) (7) Ataxia (9) Diabetes mellitus with hyperglycemia (10) Hypokalemia Discharge Diagnoses with Status of Each Condition: (1) Sepsis, resolved (2) E. coli UTI (urinary tract infection), improved (3) E.coli Bacteremia, improved (4) Methamphetamine abuse, stable (5) Severe dehydration, resolved (6) ARF (acute renal failure), improved (7) Ataxia, resolved (9) Diabetes mellitus with hyperglycemia, stable (10) Pancreatitis, resolved (11) Hypokalemia, stable (12) Hypomagnesemia, stable (13) Hyponatremia, stable (14) Pancreatitis, resolved - HPI History of Present Illness: As per Dr. Martir Rosenberg's H&P dated 09/15/2018: 'This is a 63-year-old woman with history of type 2 diabetes mellitus, CKD stag e, 2, Diabetic neuropathy, HTN, hyperlipidemia who was in ED few days ago with sore throat and urinary tract infection and put on Keflex. She notes that over the weekend she has had a very poor appetite and feels weak and dizzy and the daughter says she needs help with ambulation. She is noticed over the last couple of days that her lower extremity's have been cool and mottled. Arterial US in Ed was unremarkable and she had doppler proven pulses BL to DP. Patient admits to using meth and her initial labs showed severe electrolyte d/o with K 2.6 cr 2.8 Na 124, glu 371, lipase 277, C02 22 was not in DKA, LFT's were normal w/o SOB or CP and was taking MFM, Lisinopril, neurontin previously. Ucx on 09/12/18 grew out e.coli with sensitivities to cehalosporins. Patient with allergies to PCN/Quinolones. Patient started on IVF's, rocephin and was HD stable with initial temp 36.3. Admitted for sepsis sec to UTI, severe dehydration and CHARLES as well as encephalopathy.' - CONSULTS | PROCEDURES Consultations: None - HOSPITAL COURSE Hospital Course: by problem: (1) UTI (urinary tract infection) Impression: c/b sepsis and bacteremia. On admission, she had significantly elevated WBC with CHARLES. Urine culture and blood cultures positive for funk-sensitive e.coli. She was treated with cefepime. She has multiple antibiotic allergies. She has been afebrile and her WBC is 12.8 09/19/2018. She was changed to nitrofurantoin and was discharged home complete a course of antibiotics. On the day of discharge she was afebrile with a WBC of 13.2. She was advised to follow-up with her primary care provider within 1 weeks time to post-hospitalization follow-up. (2) ARF (acute renal failure) (3) Severe dehydration Impression: Admission SCr 2.8. She received IV hydration. Her lisinopril and metformin were held. Creatinine continues to improve. Today her creatinine is 1.1. Upon discharge, she will resume her metformin and lisinopril. She was advised to follow-up with her primary care provider within 1 weeks time to post- hospitalization follow-up to include lab work. (4) Methamphetamine abuse Impression: UDS reveals pt is positive for meth. Patient was advised to quit and education on the side effects related to methamphetamine use. (5) Ataxia Impression: Sec to multifactorial cause (i.e meth use, dehydration UTI/sepsis). This resolved with IV fluid hydration and treatment for her UTI. She was able to ambulate without assistance or difficulties prior to discharge. (6) Diabetes mellitus with hyperglycemia Impression: Patient on metformin outpatient. Admitted with CHARLES and uncontrolled hyperglycemia with Hgb A1c of 9.4. Per report, patient not compliant with metformin at home. She was started on long acting insulin upon admission. Per previous provider, patient declined wanting to use insulin upon discharge, but 09/19/2018 reported to me that if she needs to start insulin then she is amenable to it. She also reports that she does not really check her blood sugars at home. Given her improvement in her kidney function, she was advised to resume her metformin upon discharge. Patient was advised to follow-up with her primary care provider within 1 week from discharge to discuss pharmacologic therapy. (7) Hypokalemia: Impression: Her potassium ranged from 3.1-3.5. This was repleted with oral potassium. Recommend labwork checked within 1 week. (8) Hypomagnesemia: Impression: Mg 1.5. This was replaced with oral magnesium. Recommend labwork checked within 1 week. (9) Hyponatremia, mild: Na 133. Asymptomatic. (10) Pancreatitis, resolved: Painless, lipase 277 on admission. This resolved and her lipase went back down to normal. She is able to tolerate a PO diet w/o nausea/vomiting. - ALLERGIES Allergies/Adverse Reactions: Allergies Allergy/AdvReac Type Severity Reaction Status Date / Time ampicillin [Ampicillin] Allergy Intermediate Rash Verified 09/15/18 19:13 morphine Allergy Intermediate Rash Verified 09/15/18 19:13 acetaminophen [From Percocet] Allergy Rash Verified 09/15/18 19:13 ciprofloxacin [From Cipro] Allergy Itching Verified 09/15/18 19:19 clindamycin Allergy Hives Verified 09/15/18 19:19 erythromycin base Allergy Nausea Verified 09/15/18 19:13 [From E-Mycin] oxycodone HCl * Allergy Rash Verified 09/15/18 19:13 [From Percocet] Penicillins Allergy Rash Verified 09/15/18 19:13 Sulfa (Sulfonamide Allergy Rash Verified 09/15/18 19:13 Antibiotics) tetracycline [Tetracycline] Allergy Rash Verified 09/15/18 19:13 - MEDICATIONS Home Medications: Ambulatory Orders Medication Instructions Recorded Confirmed Gabapentin 100 mg PO DAILY 09/16/18 09/16/18 Albuterol Sulfate [Albuterol 2 puffs INH Q4H PRN 30 Days #2 09/20/18 Sulfate Hfa] [email or web address] Atorvastatin [Lipitor] 20 mg ORAL QPM 30 Days #30 tablet 09/20/18 Lisinopril 10 mg PO DAILY 30 Days #30 tablet 09/20/18 Nitrofurantoin [Macrobid] 100 mg PO BID #14 capsule 09/20/18 metFORMIN [Glucophage] 1,000 mg PO BID 30 Days #60 tablet 09/20/18 - PHYSICAL EXAM AT DISCHARGE General Appearance: positive: No acute distress, Alert Eyes Bilateral: positive: Normal inspection, PERRL, EOMI ENT: positive: ENT inspection nml, Pharynx nml, No signs of dehydration, Other (edentulous) Neck: positive: Nml inspection, Trachea midline Respiratory: positive: Chest non-tender, No respiratory distress, Breath sounds nml. negative: Wheezes, Rales, Rhonchi Cardiovascular: positive: Regular rate & rhythm, No murmur, No gallop Peripheral Pulses: positive: 1+ Abdomen: positive: Non-tender, No organomegaly, Nml bowel sounds, No distention Skin: positive: Warm, Dry, Other (right toe/heel wounds present). negative: Diaphoresis Extremities: positive: Non-tender, Full ROM, Nml appearance, Other Neurologic/Psychiatric: positive: Oriented x3, CN's nml (2-12), Motor nml, Sensation nml, Depressed mood/affect - LABS Result Diagrams: 09/20/18 05:48 09/20/18 05:48 Other Lab Results: Microbiology 09/15/18 18:42 Blood Blood Culture - Preliminary Escherichia Coli 09/15/18 18:58 Blood Blood Culture - Preliminary NO GROWTH AFTER 2 DAYS 09/15/18 18:35 Urine,Catheterized Urine Culture - Final Escherichia Coli - DIAGNOSTIC IMAGING Diagnostic Imaging Results: Final report reviewed Diagnostic Imaging Results Comments: Arterial Duplex ultrasound bilateral lower extremities: No evidence for hemodynamically significant stenosis or occlusions - FOLLOW UP Follow Up: Kayla CHASE within 1 week Follow-up with provider who cares for toe/heel wounds - TIME SPENT Time Spent in Discharge (Minutes): 45"
--- NOTE | 2018-09-20 08:52 | Discharge Plan ---
Discharge Plan for SNF / [facility] - Discharge Plan And Transition Orders Condition: Stable Allergies and Adverse Reactions: Allergies Allergy/AdvReac Type Severity Reaction Status Date / Time ampicillin [Ampicillin] Allergy Intermediate Rash Verified 09/15/18 19:13 morphine Allergy Intermediate Rash Verified 09/15/18 19:13 acetaminophen [From Percocet] Allergy Rash Verified 09/15/18 19:13 ciprofloxacin [From Cipro] Allergy Itching Verified 09/15/18 19:19 clindamycin Allergy Hives Verified 09/15/18 19:19 erythromycin base Allergy Nausea Verified 09/15/18 19:13 [From E-Mycin] oxycodone HCl * Allergy Rash Verified 09/15/18 19:13 [From Percocet] Penicillins Allergy Rash Verified 09/15/18 19:13 Sulfa (Sulfonamide Allergy Rash Verified 09/15/18 19:13 Antibiotics) tetracycline [Tetracycline] Allergy Rash Verified 09/15/18 19:13 - SNF / [facility] Transition Orders Medicare Certification Statement: I certify that Post Hospital shelter care is medically necessary on a continuing basis for any of the conditions for which she/he is receiving care during hospitalization. Notify PCP of admission and forward orders to primary provider for signature. Other Notification Orders: Call PCP immediately if patient develops dyspnea, chest pain/tightness or edema. Additional Bowel Program Orders: If no BM after 2 days, nurse may give M.O.M. 30ml PO PRN and/or ducolax Supp 1 LA and/or MEKA 250mg P.O., and/or senna 1-2 tabs PO. On day 3 nurse may give repeat above order until residents constipation is resolved. Medication Orders: PLEASE REFER TO THE DISCHARGE MEDICATION LIST.
--- NOTE | 2018-09-20 10:54 | Discharge Plan ---
Discharge Plan Disposition: Home, Self Care Condition: Fair Prescriptions: Albuterol Sulfate [Albuterol Sulfate Hfa] 2 puffs INH Q4H PRN 30 Days #2 [email or web address] PRN Reason: Wheezing Atorvastatin [Lipitor] 20 mg ORAL QPM 30 Days #30 tablet Lisinopril 10 mg PO DAILY 30 Days #30 tablet metFORMIN [Glucophage] 1,000 mg PO BID 30 Days #60 tablet Nitrofurantoin [Macrobid] 100 mg PO BID #14 capsule Diet: Diabetic Activity Restrictions: No Restrictions Shower Restrictions: No Driving Restrictions: No Weight Bearing: Full Weight Additional Instructions or Follow Up instructions: You were admitted to the hospital for a urinary tract infection caused by e. coli. This traveled to your blood stream. You were given IV antibiotics and then transitioned to oral antibitiotics. You are being sent home with a 7 day prescription of macrobid. Please take this exactly as prescribed. You were also admitted with dehydration and elevated creatinine (measure of kidney function). Your kidney function improved with hydration. Your kidney function is still recovering, and not yet back to baseline. Your metformin and lisinopril were held during your hospitalization. You can resume these on discharge. Be sure to stay well hydrated. Followup with your primary care provider in 1 week. Your Hgb A1c was elevated at 9.4, meaning the average of your blood sugar for the past 3 months has been 223. Resume your home metformin upon discharge. Please follow-up with your primary care provider for further management. Your potassium was low during your hospitalization. Please see your primary care provider within 1 week to follow-up on your labs. Please discontinue methamphetamine use. Meth use carries significant health consequences to include an increased risk of heart attacks, changes in your heart rhythm, stroke, and . For your depression/mood, please discuss management with your primary care provider No Smoking: If you smoke, Please STOP! Call for help. Follow-up with: Kayla Betancourt ARNP [Credentialed Staff Provider] -
[2018-09-20] MEDS ORDERED: MIN OIL/DIMETHICON/COCONUT OIL 92 GM TUBE TOP PRN (14:30)
== END 2018-09-20 15:10 | disposition home or self-care (01) | DRG 871 ==
LOC: ED 17:29 → MS2 19:37
PROVIDERS: ADMIT Family Medicine; ATTEND Nurse Practitioner
DX: A41.51 Sepsis due to Escherichia coli [E. coli] (principal); K85.90 Acute pancreatitis without necrosis or infection, unspecified; N39.0 Urinary tract infection, site not specified; N17.9 Acute kidney failure, unspecified; E87.1 Hypo-osmolality and hyponatremia; G93.40 Encephalopathy, unspecified; E11.22 Type 2 diabetes mellitus with diabetic chronic kidney disease; E11.65 Type 2 diabetes mellitus with hyperglycemia; I12.9 Hypertensive chronic kidney disease with stage 1 through stage 4 chronic kidney disease, or unspecified chronic kidney disease; N18.2 Chronic kidney disease, stage 2 (mild); Z79.84 Long term (current) use of oral hypoglycemic drugs; J45.909 Unspecified asthma, uncomplicated; E03.9 Hypothyroidism, unspecified; F32.9 Major depressive disorder, single episode, unspecified; E11.40 Type 2 diabetes mellitus with diabetic neuropathy, unspecified; E78.5 Hyperlipidemia, unspecified; M19.90 Unspecified osteoarthritis, unspecified site; Z88.6 Allergy status to analgesic agent; Z88.0 Allergy status to penicillin; Z88.2 Allergy status to sulfonamides; F17.200 Nicotine dependence, unspecified, uncomplicated; E87.6 Hypokalemia; E83.42 Hypomagnesemia; F15.10 Other stimulant abuse, uncomplicated; E86.0 Dehydration; R27.0 Ataxia, unspecified
CPT/HCPCS: 36415; 80053; 80306; 80320; 81001; 83036; 83605; 83690; 83735; 85025; 87040; 87077; 87086; 87181; 93925; 96374; 97116; 97161; 99284; 99291; A9270; J1815; J7120; 81003; 99283

== ENCOUNTER 2018-10-02 14:03 | Outpatient (CLI) | payer MEDICAID ==
[2018-10-02 19:07] LABS: BASOPHILS % (AUTO) 0.5 %; BILIRUBIN,URINE NEGATIVE (NEGATIVE); EOSINOPHILS # (AUTO) 0.1 10^3/uL (0.0-0.7); EOSINOPHILS % (AUTO) 0.9 %; GLUCOSE, URINE (UA) 100 mg/dL (NEGATIVE); HGB - HEMOGLOBIN 10.6 g/dL (12.0-16.0); KETONES,URINE (UA) NEGATIVE (NEGATIVE); LEUKOCYTE ESTERASE, URINE MODERATE (NEGATIVE); LYMPHOCYTES # (AUTO) 1.9 10^3/uL (1.5-3.5); LYMPHOCYTES % (AUTO) 23.9 %; MEAN CORPUSCULAR HEMOGLOBIN 30.5 pg (27.0-31.0); MEAN CORPUSCULAR HGB CONC 32.8 g/dL (32.0-36.0); MEAN PLATELET VOLUME 7.9 fL (7.9-10.8); MONOCYTES # (AUTO) 0.5 10^3/uL (0.0-1.0); MONOCYTES % (AUTO) 6.3 %; NEUTROPHILS # (AUTO) 5.3 10^3/uL (1.5-6.6); NEUTROPHILS % (AUTO) 68.4 %; NITRITE,URINE NEGATIVE (NEGATIVE); OCCULT BLOOD,URINE TRACE-INTA (NEGATIVE); PH,URINE 6.5 PH (5.0-7.5); PLT - PLATELET COUNT 314 10^3/uL (130-450); PROTEIN,URINE TRACE mg/dL (NEGATIVE); RED BLOOD COUNT 3.48 10^6/uL (4.20-5.40); RED CELL DISTRIBUTION WIDTH 14.8 % (12.0-15.0); UROBILINOGEN,URINE 0.2 (NORMAL) E.U./dL (NORMAL); WHITE BLOOD COUNT 7.8 x10^3/uL (4.8-10.8)
[2018-10-02 19:10] LABS: CLARITY,URINE CLEAR (CLEAR)
[2018-10-02 19:24] LABS: ALBUMIN 3.1 g/dL (3.2-5.5); ALBUMIN/GLOBULIN RATIO 0.6 (1.0-2.2); BILIRUBIN,TOTAL 0.6 mg/dL (0.2-1.0); CALCIUM 8.9 mg/dL (8.5-10.3); MAGNESIUM 1.3 mg/dL (1.7-2.8); PHOSPHORUS 3.2 mg/dL (2.5-4.6); TOTAL PROTEIN 7.9 g/dL (6.7-8.2)
[2018-10-02 19:36] LABS: BACTERIA,URINE Many /HPF (None Seen); SQUAMOUS EPITHELIAL CELL,UR RARE Squamous (<= Few); WBC CLUMPS,URINE PRESENT
== END 2018-10-02 23:59 | disposition home or self-care (01) ==
LOC: LAB.N 14:03
PROVIDERS: ATTEND Family Medicine
DX: E11.65 Type 2 diabetes mellitus with hyperglycemia (principal); I10 Essential (primary) hypertension; E87.8 Other disorders of electrolyte and fluid balance, not elsewhere classified; A41.9 Sepsis, unspecified organism
CPT/HCPCS: 36415; 80050; 81001; 83735; 84100; 87086; 87181

== ENCOUNTER 2018-10-29 15:04 | Outpatient (CLI) | payer MEDICAID | END 2018-10-29 23:59 | disposition home or self-care (01) | LOC: LAB.N 15:04 | PROVIDERS: ATTEND Family Medicine | DX: N39.0 Urinary tract infection, site not specified (principal) | CPT/HCPCS: 87086; 87181 ==

== ENCOUNTER 2019-03-16 01:43 | Emergency (ER) | payer MEDICAID ==
--- NOTE | 2019-03-16 01:56 | ED Physician Documentation ---
PD HPI ABD PAIN - Stated complaint Stated Complaint: ABD PX/CONSTIPATION - Chief complaint Chief Complaint: Abd Pain - History obtained from History obtained from: Patient, Family - History of Present Illness Timing - onset: How many weeks ago (2) Timing - duration: Weeks (2) Timing - details: Gradual onset, Still present Quality: Cramping, Sharp, Pain Location: All over / everywhere Improved by: BM Worsened by: Moving, Position, Palpation Associated symptoms: Nausea, Constipation Similar symptoms before: Diagnosis (constipation) Recently seen: Clinic - Additional information Additional information: 63-year-old female with a lifelong history of constipation has become constipated over the past 2 weeks and she is had very little stool output despite the use of 10 mL's of lactulose daily. She has tried some stool softeners she is tried some Ex-Lax and nothing she is taken seems to work very well. Her daughter indicates that she has softball sized stool when she does have something come out. The patient is indicating that tonight she had severe pain in the right side and this is now resolved. Review of Systems Constitutional: denies: Fever Eyes: denies: Decreased vision Ears: denies: Ear pain Nose: denies: Rhinorrhea / runny nose, Congestion Throat: denies: Sore throat Cardiac: denies: Chest pain / pressure, Palpitations Respiratory: denies: Dyspnea, Cough GI: reports: Abdominal Pain, Abdominal Swelling, Nausea, Constipation. 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 : None HEENT: None Psych: Depression Musculoskeletal: Osteoarthritis Derm: None - Past Surgical History Past Surgical History: Yes General: Hiatal hernia repair /SUPERVISOR OPENING AND PICKING: section, Tubal ligation - Present Medications Home Medications: Ambulatory Orders Medication Instructions Recorded Confirmed Gabapentin 100 mg PO DAILY 09/16/18 09/16/18 Albuterol Sulfate [Albuterol 2 puffs INH Q4H PRN 30 Days #2 09/20/18 Sulfate Hfa] hfa.aer.ad Atorvastatin [Lipitor] 20 mg ORAL QPM 30 Days #30 tablet 09/20/18 Lisinopril 10 mg PO DAILY 30 Days #30 tablet 09/20/18 Nitrofurantoin [Macrobid] 100 mg PO BID #14 capsule 09/20/18 metFORMIN [Glucophage] 1,000 mg PO BID 30 Days #60 tablet 09/20/18 - Allergies Allergies/Adverse Reactions: Allergies Allergy/AdvReac Type Severity Reaction Status Date / Time ampicillin [Ampicillin] Allergy Intermediate Rash Verified 03/16/19 01:53 morphine Allergy Intermediate Rash Verified 03/16/19 01:53 acetaminophen [From Percocet] Allergy Rash Verified 03/16/19 01:53 ciprofloxacin [From Cipro] Allergy Itching Verified 03/16/19 01:53 clindamycin Allergy Hives Verified 03/16/19 01:53 erythromycin base Allergy Nausea Verified 03/16/19 01:53 [From E-Mycin] oxycodone HCl * Allergy Rash Verified 03/16/19 01:53 [From Percocet] Penicillins Allergy Rash Verified 03/16/19 01:53 Sulfa (Sulfonamide Allergy Rash Verified 03/16/19 01:53 Antibiotics) tetracycline [Tetracycline] Allergy Rash Verified 03/16/19 01:53 - Social History Does the pt smoke?: Yes Smoking Status: Current every day smoker Does the pt drink ETOH?: Yes Does the pt have substance abuse?: No - Immunizations Immunizations are current?: Yes - POLST Patient has POLST: No PD ED PE NORMAL - Vitals Vital signs reviewed: Yes (hypertensive marked) - General General: Alert and oriented X 3, No acute distress, Well developed/nourished - HEENT HEENT: Atraumatic, PERRL, EOMI - Neck Neck: Supple, no meningeal sign - Cardiac Cardiac: RRR, No murmur - Respiratory Respiratory: No respiratory distress, Clear bilaterally - Abdomen Abdomen: Soft, Non tender, Other (There is a ventral hernia that is easily reducible and non-tender. ) - Rectal Rectal: Other (There is stool at the distal fingertip soft. ) - Back Back: No CVA TTP, No spinal TTP - Derm Derm: Normal color, Warm and dry, No rash - Extremities Extremities: No deformity, Normal ROM s pain, No edema, No calf tenderness / c ord - Psych Psych: Normal mood, Normal affect Results - Vitals Vitals: Vital Signs - 24 hr 03/16/19 01:49 Temperature 36.3 C L Heart Rate 100 Respiratory 18 Rate Blood Pressure 193/104 H O2 Saturation 99 Oxygen O2 Source Room air - Labs Labs: Laboratory Tests 03/16/19 03/16/19 03/16/19 02:43 02:43 02:43 WBC 8.4 RBC 4.18 L Hgb 12.6 Hct 40.8 MCV 97.6 MCH 30.1 MCHC 30.9 L RDW 14.6 Plt Count 199 MPV 8.9 Neut # (Auto) 5.1 Lymph # (Auto) 2.5 [place] # (Auto) 0.5 Eos # (Auto) 0.2 Baso # (Auto) 0.0 Absolute Nucleated RBC 0.00 Nucleated RBC % 0.0 Sodium 137 Potassium 3.7 Chloride 102 Carbon Dioxide 27 Anion Gap 8.0 BUN 14 Creatinine 0.9 Estimated GFR (MDRD) 63 L Glucose 214 H Calcium 9.1 Total Bilirubin 0.3 AST 19 ALT 21 Alkaline Phosphatase 88 Total Protein 6.5 L Albumin 3.6 Globulin 2.9 Albumin/Globulin Ratio 1.2 Lipase 100 H TSH 4.74 PD MEDICAL DECISION MAKING - ED course Complexity details: reviewed results, re-evaluated patient, considered differential, d/w patient, d/w family ED course: 63-year-old female with a two-week history of constipationHas exacerbation of pain this evening and is come to the emergency department for further treatment. She has had some stool out yesterday which was very hard and about the size of a softball. The patient indicates that she has been straining all day today to try and have a bowel movement and nothing has come through. She has been using some lactulose. Despite her attempts at treatment she has not had success and she is here today for evaluation and treatment. An initial oil retention enema did not produce results a soapsuds enema eventually did produce results. While we are waiting for these results we entertain the thought that she may have some issue with hypothyroidism as this is listed as a diagnosis on her chart and she is not on any Synthroid. Her TSH was normal. The remainder of her work-up was normal as well with the exception of elevated blood glucose with type 2 diabetes. The patient did have a good results with the soapsuds enema. Departure - Departure Disposition: 01 Home, Self Care Clinical Impression: Constipation Qualifiers: Constipation type: unspecified constipation type Qualified Code(s): K59.00 - Constipation, unspecified Condition: Stable Instructions: ED Constipation Follow-Up: Kayla Betancourt ARNP [Primary Care Provider] -
[2019-03-16 02:56] LABS: BASOPHILS % (AUTO) 0.4 %; EOSINOPHILS # (AUTO) 0.2 10^3/uL (0.0-0.7); EOSINOPHILS % (AUTO) 2.2 %; HGB - HEMOGLOBIN 12.6 g/dL (12.0-16.0); LYMPHOCYTES # (AUTO) 2.5 10^3/uL (1.5-3.5); LYMPHOCYTES % (AUTO) 29.6 %; MEAN CORPUSCULAR HEMOGLOBIN 30.1 pg (27.0-31.0); MEAN CORPUSCULAR HGB CONC 30.9 g/dL (32.0-36.0); MEAN CORPUSCULAR VOLUME 97.6 fL (81.0-99.0); MEAN PLATELET VOLUME 8.9 fL (7.9-10.8); MONOCYTES # (AUTO) 0.5 10^3/uL (0.0-1.0); MONOCYTES % (AUTO) 6.5 %; NEUTROPHILS # (AUTO) 5.1 10^3/uL (1.5-6.6); NEUTROPHILS % (AUTO) 60.8 %; PLT - PLATELET COUNT 199 10^3/uL (130-450); RED BLOOD COUNT 4.18 10^6/uL (4.20-5.40); RED CELL DISTRIBUTION WIDTH 14.6 % (12.0-15.0); WHITE BLOOD COUNT 8.4 x10^3/uL (4.8-10.8)
[2019-03-16 03:10] LABS: ALBUMIN 3.6 g/dL (3.2-5.5); ALBUMIN/GLOBULIN RATIO 1.2 (1.0-2.2); BILIRUBIN,TOTAL 0.3 mg/dL (0.2-1.0); CALCIUM 9.1 mg/dL (8.5-10.3); CREATININE 0.9 mg/dL (0.4-1.0); TOTAL PROTEIN 6.5 g/dL (6.7-8.2)
[2019-03-16 04:01] VITALS: BP 175/101
== END 2019-03-16 04:01 | disposition home or self-care (01) ==
LOC: ED 01:43
DX: I10 Essential (primary) hypertension (principal); E11.65 Type 2 diabetes mellitus with hyperglycemia; F17.200 Nicotine dependence, unspecified, uncomplicated; Z79.84 Long term (current) use of oral hypoglycemic drugs
CPT/HCPCS: 36415; 80053; 83690; 84443; 85025; 99282; 99284

== ENCOUNTER 2019-09-18 13:13 | Outpatient (CLI) | payer MEDICAID ==
--- NOTE | 2019-09-20 06:16 | XRAY Report ---
Reason: LUMBAR RADICULOPATHY Procedure Date: 09/18/2019 Accession Number: [id number] / [id number] Procedure: XRN - Lumbar Spine Complete CPT Code: Final Report FULL RESULT: EXAM: LUMBOSACRAL SPINE RADIOGRAPHY EXAM DATE: 09/18/2019 01:54 PM. CLINICAL HISTORY: LUMBAR RADICULOPATHY. COMPARISONS: 10/30/2010 9:52 AM. TECHNIQUE: 3 views. FINDINGS: Alignment: There is 11 degrees rightward curvature measured between L1-L2 and L3-L4. There is 6 mm right with displacement of L3 on L4. Bones: Five [id number] lumbar vertebral bodies are present. No fractures or bone lesions. Disks: Moderate disk height loss with endplate osteophytosis at all lumbar levels. Facets: Moderate facet hypertrophy at L4-L5 and L5-S1. Sacroiliac Joints: Unremarkable. Soft Tissues: Normal. The visualized bowel gas pattern is normal. IMPRESSION: 1. No evidence of fracture or other acute abnormality. 2. Development of 11 degrees degenerative dextro scoliosis. 3. Multilevel moderate diskogenic degenerative changes. RADIA
== END 2019-09-18 13:14 | disposition home or self-care (01) ==
LOC: DI.N 13:13
PROVIDERS: ATTEND Family Medicine
DX: M51.36 Other intervertebral disc degeneration, lumbar region (principal); M47.816 Spondylosis without myelopathy or radiculopathy, lumbar region; M47.817 Spondylosis without myelopathy or radiculopathy, lumbosacral region
CPT/HCPCS: 72110

== ENCOUNTER 2020-04-19 23:49 | Emergency (ER) | payer MEDICAID ==
--- NOTE | 2020-04-20 00:01 | ED Physician Documentation ---
History of Present Illness - Stated complaint Stated Complaint: WHEEZING/COUGH - History obtained from History obtained from: Patient - Additonal information Additional information: the patient is a 64 y/o f w a hx of copd who ran out of her inhaler c/o of coughing and wheezing without fevers. denies cp, hemoptysis, lower extremity swelling or any other concerns. Review of Systems Constitutional: reports: Reviewed and negative Eyes: reports: Reviewed and negative Ears: reports: Reviewed and negative Nose: reports: Reviewed and negative Throat: reports: Reviewed and negative Cardiac: reports: Reviewed and negative Respiratory: reports: Dyspnea, Cough, Wheezing GI: reports: Reviewed and negative : reports: Reviewed and negative Skin: reports: Reviewed and negative Musculoskeletal: reports: Reviewed and negative Neurologic: reports: Reviewed and negative Psychiatric: reports: Reviewed and negative Endocrine: reports: Reviewed and negative Immunocompromised: reports: Reviewed and negative PD PAST MEDICAL HISTORY - Past Medical History Cardiovascular: Hypertension Respiratory: Asthma, Pneumonia Neuro: None Endocrine/Autoimmune: Type 2 diabetes, HyPOthyroidism GI: Hiatal hernia 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 : None HEENT: None Psych: Depression Musculoskeletal: Osteoarthritis Derm: None - Past Surgical History Past Surgical History: Yes General: Hiatal hernia repair /CAMPUS SECURITY OFFICER: section, Tubal ligation - Present Medications Home Medications: Ambulatory Orders Medication Instructions Recorded Confirmed Gabapentin 100 mg PO DAILY 09/16/18 09/16/18 Albuterol Sulfate [Albuterol 2 puffs INH Q4H PRN 30 Days #2 09/20/18 Sulfate Hfa] [email or web address] Atorvastatin [Lipitor] 20 mg ORAL QPM 30 Days #30 tablet 09/20/18 Nitrofurantoin [Macrobid] 100 mg PO BID #14 capsule 09/20/18 lisinopriL [Lisinopril] 10 mg PO DAILY 30 Days #30 tablet 09/20/18 metFORMIN [Glucophage] 1,000 mg PO BID 30 Days #60 tablet 09/20/18 Albuterol Sulfate [Albuterol 18 gm IH Q4HR PRN #1 hfa.aer.ad 04/20/20 Sulfate Hfa] predniSONE [Prednisone] 50 mg PO DAILY #5 tablet 04/20/20 - Allergies Allergies/Adverse Reactions: Allergies Allergy/AdvReac Type Severity Reaction Status Date / Time ampicillin [Ampicillin] Allergy Intermediate Rash Verified 03/16/19 01:53 morphine Allergy Intermediate Rash Verified 03/16/19 01:53 acetaminophen [From Percocet] Allergy Rash Verified 03/16/19 01:53 ciprofloxacin [From Cipro] Allergy Itching Verified 03/16/19 01:53 clindamycin Allergy Hives Verified 03/16/19 01:53 erythromycin base Allergy Nausea Verified 03/16/19 01:53 [From E-Mycin] oxycodone HCl * Allergy Rash Verified 03/16/19 01:53 [From Percocet] Penicillins Allergy Rash Verified 03/16/19 01:53 Sulfa (Sulfonamide Allergy Rash Verified 03/16/19 01:53 Antibiotics) tetracycline [Tetracycline] Allergy Rash Verified 03/16/19 01:53 - Social History Does the pt smoke?: Yes Smoking Status: Current every day smoker Does the pt drink ETOH?: Yes Does the pt have substance abuse?: No - Immunizations Immunizations are current?: Yes - POLST Patient has POLST: No PD ED PE NORMAL - Vitals Vital signs reviewed: Yes - General General: Alert and oriented X 3, No acute distress, Well developed/nourished - HEENT HEENT: Atraumatic, PERRL - Neck Neck: Supple, no meningeal sign - Cardiac Cardiac: RRR, No murmur, Strong equal pulses - Respiratory Respiratory: No respiratory distress, Other (intermittent wheezing mild in b/l lung pereira. no use of accessory muscles, trachea midline. no distress.) - Abdomen Abdomen: Normal bowel sounds, Soft, Non tender, Non distended - Derm Derm: Warm and dry - Extremities Extremities: No deformity - Neuro Neuro: Alert and oriented X 3 - Psych Psych: Normal mood, Normal affect Results - Vitals Vitals: Vital Signs - 24 hr 04/20/20 04/20/20 00:12 00:47 Temperature 97.8 C H Heart Rate 80 83 Respiratory 18 20 Rate Blood Pressure 145/81 H O2 Saturation 98 Oxygen O2 Source Room air - EKG (time done) 00:25 Rate: Other (no stemi) PD MEDICAL DECISION MAKING - ED course Complexity details: reviewed results, re-evaluated patient (symptoms improved, breath sounds improved after treatment with duonebs.), d/w patient ED course: 64-year-old female with a history of COPD who ran out of her inhaler with one- week history of cough without hemoptysis or lower extremity swelling no chest pain no syncope and no fevers or exams consistent with mild COPD exacerbation she will be treated with bronchodilators and oral steroids and discharged to follow-up with her primary care provider tomorrow. Departure - Departure Disposition: 01 Home, Self Care Clinical Impression: COPD (chronic obstructive pulmonary disease) Qualifiers: COPD type: unspecified COPD Qualified Code(s): J44.9 - Chronic obstructive pulmonary disease, unspecified Condition: Stable Instructions: ED COPD Flare Follow-Up: INGRID SULLIVAN MD [Primary Care Provider] - 04/20/20 Prescriptions: Albuterol Sulfate [Albuterol Sulfate Hfa] 18 gm IH Q4HR PRN #1 hfa.aer.ad PRN Reason: Wheezing predniSONE [Prednisone] 50 mg PO DAILY #5 tablet Comments: follow up with your pcp tomorrow. use inhaler as needed. take prednisone as directed. return to the emergency department with any concerns. Discharge Date/Time: 04/20/20 01:39
[2020-04-20 00:16] VITALS: BP 145/81
[2020-04-20] MEDS ORDERED: IPRATROPIUM/ALBUTEROL 3 ML NEB INH STA (00:22)
[2020-04-20] MEDS ORDERED: predniSONE 20 MG TABLET PO STA (00:23)
--- NOTE | 2020-04-20 07:39 | XRAY Report ---
PROCEDURE: Chest 1 View X-Ray INDICATIONS: sob TECHNIQUE: One view of the chest was acquired. COMPARISON: 07/21/2016 and 03/26/2013. FINDINGS: Surgical changes and devices: None. Lungs and pleura: No pleural effusions or pneumothorax. Lungs are clear. Mediastinum: Mediastinal contours appear normal. Heart size is normal. Bones and chest wall: No suspicious bony lesions. Overlying soft tissues appear unremarkable. IMPRESSION: No acute cardiopulmonary disease process. Reviewed by: Araceli Malagon MD, PhD on 04/20/2020 7:37 AM PDT Approved by: Araceli Malagon MD, PhD on 04/20/2020 7:37 AM PDT Station ID: [id number]
== END 2020-04-20 01:39 | disposition home or self-care (01) ==
LOC: ED 23:49
DX: J44.9 Chronic obstructive pulmonary disease, unspecified (principal); I10 Essential (primary) hypertension; E11.9 Type 2 diabetes mellitus without complications; F17.200 Nicotine dependence, unspecified, uncomplicated; Z79.84 Long term (current) use of oral hypoglycemic drugs
CPT/HCPCS: 71045; 94640; 94664; 99283; 99284; J7512

== ENCOUNTER 2020-12-13 08:00 | Outpatient (CLI) | payer MEDICAID ==
[2020-12-13 17:46] LABS: ESTIMATED AVERAGE GLUCOSE 252 mg/dL (70-100); HEMOGLOBIN A1c% 10.4 % (4.27-6.07)
[2020-12-13 17:57] LABS: BASOPHILS % (AUTO) 0.4 %; EOSINOPHILS # (AUTO) 0.3 10^3/uL (0.0-0.7); EOSINOPHILS % (AUTO) 3.6 %; HCT - HEMATOCRIT 47.4 % (37.0-47.0); HGB - HEMOGLOBIN 14.2 g/dL (12.0-16.0); LYMPHOCYTES # (AUTO) 1.6 10^3/uL (1.5-3.5); LYMPHOCYTES % (AUTO) 22.3 %; MEAN CORPUSCULAR HEMOGLOBIN 31.3 pg (27.0-31.0); MEAN CORPUSCULAR VOLUME 104.6 fL (81.0-99.0); MEAN PLATELET VOLUME 9.8 fL (7.9-10.8); MONOCYTES # (AUTO) 0.5 10^3/uL (0.0-1.0); MONOCYTES % (AUTO) 6.3 %; NEUTROPHILS # (AUTO) 4.9 10^3/uL (1.5-6.6); NEUTROPHILS % (AUTO) 66.9 %; PLT - PLATELET COUNT 187 10^3/uL (130-450); RED BLOOD COUNT 4.53 10^6/uL (4.20-5.40); RED CELL DISTRIBUTION WIDTH 14.9 % (12.0-15.0); WHITE BLOOD COUNT 7.3 x10^3/uL (4.8-10.8)
[2020-12-13 18:24] LABS: THYROID STIMULATING HORMONE 3.18 uIU/mL (0.34-5.60)
[2020-12-13 18:42] LABS: ALBUMIN/GLOBULIN RATIO 1.3 (1.0-2.2); ALKALINE PHOSPHATASE 106 IU/L (42-121); ALT ALANINE AMINOTRANSFERASE 17 IU/L (10-60); AST ASPARTATE AMINOTRANSFERASE 17 IU/L (10-42); BILIRUBIN,TOTAL 0.7 mg/dL (0.2-1.0); BUN - BLOOD UREA NITROGEN 16 mg/dL (6-20); CALCIUM 9.2 mg/dL (8.5-10.3); CARBON DIOXIDE - CO2 28 mmol/L (21-32); CHLORIDE 91 mmol/L (101-111); CHOL/HDL RATIO 5.3 (<4.4); CHOLESTEROL 203 mg/dL; CREATININE 1.2 mg/dL (0.4-1.0); GFR - MDRD 45 (>89); HDL CHOLESTEROL 38 mg/dL; POTASSIUM 4.6 mmol/L (3.5-5.0); SODIUM 129 mmol/L (135-145); TRIGLYCERIDES 451 mg/dL
[2020-12-13 19:12] LABS: LDL CHOLESTEROL,DIRECT 118 mg/dL; LDLD/HDL RATIO 3.1 (<4.4)
[2020-12-13 19:21] LABS: GLUCOSE 764 mg/dL (70-100)
== END 2020-12-13 08:01 | disposition home or self-care (01) ==
LOC: LAB.WCP 08:00
PROVIDERS: ATTEND Family Medicine
DX: E11.8 Type 2 diabetes mellitus with unspecified complications (principal)
CPT/HCPCS: 36415; 80050; 80061; 82043; 82570; 83036; 83721

== ENCOUNTER 2020-12-26 08:00 | Outpatient (CLI) | payer MEDICAID ==
[2020-12-26 18:18] LABS: FECAL OCCULT BLOOD (FIT) POSITIVE (NEGATIVE)
== END 2020-12-26 23:59 | disposition home or self-care (01) ==
LOC: LAB.R 08:00
PROVIDERS: ATTEND Family Medicine
DX: Z12.11 Encounter for screening for malignant neoplasm of colon (principal)
CPT/HCPCS: 82274

== ENCOUNTER 2021-02-01 19:04 | Emergency (ER) | payer MEDICAID ==
[2021-02-01 20:23] LABS: BASOPHILS % (AUTO) 0.3 %; EOSINOPHILS # (AUTO) 0.2 10^3/uL (0.0-0.7); EOSINOPHILS % (AUTO) 1.9 %; HCT - HEMATOCRIT 36.6 % (37.0-47.0); HGB - HEMOGLOBIN 11.3 g/dL (12.0-16.0); LYMPHOCYTES # (AUTO) 2.2 10^3/uL (1.5-3.5); MEAN CORPUSCULAR HEMOGLOBIN 30.7 pg (27.0-31.0); MEAN CORPUSCULAR HGB CONC 30.9 g/dL (32.0-36.0); MEAN CORPUSCULAR VOLUME 99.5 fL (81.0-99.0); MEAN PLATELET VOLUME 8.8 fL (7.9-10.8); MONOCYTES # (AUTO) 0.5 10^3/uL (0.0-1.0); MONOCYTES % (AUTO) 5.5 %; NEUTROPHILS # (AUTO) 6.4 10^3/uL (1.5-6.6); NEUTROPHILS % (AUTO) 68.6 %; PLT - PLATELET COUNT 221 10^3/uL (130-450); RED BLOOD COUNT 3.68 10^6/uL (4.20-5.40); RED CELL DISTRIBUTION WIDTH 14.9 % (12.0-15.0); WHITE BLOOD COUNT 9.3 x10^3/uL (4.8-10.8)
--- NOTE | 2021-02-01 20:25 | ED Physician Documentation ---
History of Present Illness - Stated complaint Stated Complaint: RT TOE PX - Chief complaint Chief Complaint: Wound - Additonal information Additional information: 65-year-old female was advised to come to the emergency department for evaluati on of concerns of infection in her right ring toe as well as cellulitis of the foot. She has a history of type 2 diabetes, chronic kidney disease diabetic neuropathy, hypertension and hyperlipidemia. She states that a number of years ago that she had severe trauma to the foot that resulted multiple broken bones since then she has had neuropathy of these toes. She thinks that for perhaps a month or more the ring toe has been in an abnormal position. It is flexed at the DIP curling under. Is grossly swollen and has large amount of foul-smelling purulent drainage coming from it. This drainage began perhaps a week ago. She now has some erythema extending up the foot which may be about 4 days old. She denies any fevers. No chest pain. No abdominal pain nausea or vomiting. She has not taken any antibiotics recently. 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 : None HEENT: None Psych: Depression Musculoskeletal: Osteoarthritis Derm: None - Past Surgical History Past Surgical History: Yes General: Hiatal hernia repair /HANDCREW FOREMAN: section, Tubal ligation - Present Medications Home Medications: Ambulatory Orders Medication Instructions Recorded Confirmed Gabapentin 100 mg PO DAILY 09/16/18 02/01/21 Albuterol Sulfate [Albuterol 2 puffs INH Q4H PRN 30 Days #2 09/20/18 02/01/21 Sulfate Hfa] hfa.aer.ad Atorvastatin [Lipitor] 20 mg ORAL QPM 30 Days #30 tablet 09/20/18 02/01/21 lisinopriL [Lisinopril] 10 mg PO DAILY 30 Days #30 tablet 09/20/18 02/01/21 metFORMIN [Glucophage] 1,000 mg PO BID 30 Days #60 tablet 09/20/18 02/01/21 cephALEXin [Keflex] 500 mg PO Q6H #40 02/01/21 glipiZIDE [Glucotrol] 5 mg PO DAILY 02/01/21 02/01/21 metroNIDAZOLE [Flagyl] 500 mg PO BID #20 tablet 02/01/21 - Allergies Allergies/Adverse Reactions: Allergies Allergy/AdvReac Type Severity Reaction Status Date / Time ampicillin [Ampicillin] Allergy Intermediate Rash Verified 02/01/21 19:08 morphine Allergy Intermediate Rash Verified 02/01/21 19:08 acetaminophen [From Percocet] Allergy Rash Verified 02/01/21 19:08 ciprofloxacin [From Cipro] Allergy Itching Verified 02/01/21 19:08 clindamycin Allergy Hives Verified 02/01/21 19:08 erythromycin base Allergy Nausea Verified 02/01/21 19:08 [From E-Mycin] oxycodone HCl * Allergy Rash Verified 02/01/21 19:08 [From Percocet] Penicillins Allergy Rash Verified 02/01/21 19:08 Sulfa (Sulfonamide Allergy Rash Verified 02/01/21 19:08 Antibiotics) tetracycline [Tetracycline] Allergy Rash Verified 02/01/21 19:08 - Social History Does the pt smoke?: Yes Smoking Status: Current every day smoker Does the pt drink ETOH?: Yes Does the pt have substance abuse?: No - Immunizations Immunizations are current?: Yes - POLST Patient has POLST: No PD ED PE EXPANDED - General General: Alert, No acute distress, Other (Obese) - Cardiac Cardiac: Regular Rate, Radial strong equal, Pedal strong equal, Cap refill < 2 sec - Respiratory Respiratory: Clear to ausultation suki. No: Distress, Labored - Abdomen Abdomen: Normal Bowel sounds. No: Tender to palpation - Extremities Extremities: Right foot (Ring toe on the right foot is grossly swollen flexed forward at the DIP curling under. Skin is hyperkeratotic. In the folds of the skin there is Purulent drainage erythema extends to the dorsum of the foot between the small and middle toe.) - Neuro Neuro: Alert and Oriented X 3, CNII-XII intact - GCS Eye Opening: Spontaneous Motor: Obeys Commands Verbal: Oriented Total: 15 Results - Vitals Vitals: Vital Signs - 24 hr 02/01/21 02/01/21 02/01/21 19:10 20:48 21:21 Temperature 37.0 C 36.5 C Heart Rate 85 93 Respiratory 18 16 17 Rate Blood Pressure 150/65 H 150/90 H O2 Saturation 100 98 Oxygen O2 Source Room air - Labs Labs: Laboratory Tests 02/01/21 02/01/21 02/01/21 20:15 20:15 20:15 WBC 9.3 RBC 3.68 L Hgb 11.3 L Hct 36.6 L MCV 99.5 H MCH 30.7 MCHC 30.9 L RDW 14.9 Plt Count 221 MPV 8.8 Neut # (Auto) 6.4 Lymph # (Auto) 2.2 [place] # (Auto) 0.5 Eos # (Auto) 0.2 Baso # (Auto) 0.0 Absolute Nucleated RBC 0.00 Nucleated RBC % 0.0 ESR Sodium 139 Potassium 3.8 Chloride 104 Carbon Dioxide 26 Anion Gap 9.0 BUN 15 Creatinine 0.9 Estimated GFR (MDRD) 63 L Glucose 141 H Lactic Acid 1.6 Calcium 9.0 Total Bilirubin 0.5 AST 21 ALT 21 Alkaline Phosphatase 73 C-Reactive Protein Total Protein 6.7 Albumin 3.7 Globulin 3.0 Albumin/Globulin Ratio 1.2 Urine Color Urine Clarity Urine pH Ur Specific [place] Urine Protein Urine Glucose (UA) Urine Ketones Urine Occult Blood Urine Nitrite Urine Bilirubin Urine Urobilinogen Ur Leukocyte Esterase Urine RBC Urine WBC Ur Squamous Epith Cells Urine Bacteria Urine Culture Comments 02/01/21 02/01/21 02/01/21 20:15 20:15 21:00 WBC RBC Hgb Hct MCV MCH MCHC RDW Plt Count MPV Neut # (Auto) Lymph # (Auto) [place] # (Auto) Eos # (Auto) Baso # (Auto) Absolute Nucleated RBC Nucleated RBC % ESR 34 H Sodium Potassium Chloride Carbon Dioxide Anion Gap BUN Creatinine Estimated GFR (MDRD) Glucose Lactic Acid Calcium Total Bilirubin AST ALT Alkaline Phosphatase C-Reactive Protein 1.4 H Total Protein Albumin Globulin Albumin/Globulin Ratio Urine Color YELLOW Urine Clarity CLEAR Urine pH 6.0 Ur Specific [place] 1.025 Urine Protein NEGATIVE Urine Glucose (UA) NEGATIVE Urine Ketones NEGATIVE Urine Occult Blood NEGATIVE Urine Nitrite NEGATIVE Urine Bilirubin NEGATIVE Urine Urobilinogen 0.2 (NORMAL) Ur Leukocyte Esterase NEGATIVE Urine RBC 0-5 Urine WBC 0-3 Ur Squamous Epith Cells FEW Squamous Urine Bacteria Few Urine Culture Comments NOT INDICATED - Rads (name of study) right foot xr Radiology: Final report received (Erosive changes within the fourth distal phalanx with associated soft tissue swelling likely represents osteomyelitis.) PD MEDICAL DECISION MAKING - ED course Complexity details: reviewed results, re-evaluated patient, considered differential, d/w patient, d/w family, d/w engagement quality consultant (Matthew ) ED course: 65-year-old diabetic female presents the emergency department for concerns of infection in the ring toe of her right foot as well as cellulitis of the foot. On exam she has a chronic appearing grossly infected right ring toe. An x-ray suggest erosive bony changes likely indicating osteomyelitis. Over the last 4 days to week she has developed some erythema on the dorsum of her foot. Please refer to the pictures in the chart. Screening labs do not show any significant leukocytosis. She has only mildly elevated CRP and sed rate. Unfortunately at this time we do not have orthopedic or MRI services at [facility]. I initially discussed the case with our hospitalist Dr. Matthew lujan who would recommend transfer to a hospital that has appropriate consulting services. [id number] Dumont-bryon orthopedic surgeon at [facility]. We discussed the x-ray imaging findings as well as her lab results. Because she is not toxic appearing nor is she is septic at this time he would not accept the patient in transfer. He would recommend IV antibiotics. I then discussed the case again with Dr. Matthew lujan our nighttime hospitalist. He came to the bedside and together in conversation with the patient her daughter and myself the decision was made to try to treat the patient with oral outpatient antibiotics. Patient does not desire to be admitted to the hospital at this time and would like to see if oral antibiotics can be tried first. She likely has chronic ost eomyelitis that has now resulted in foot cellulitis. She does have a number of antibiotic allergies. A wound culture is pending. Patient will be started on cephalexin 4 times a day as well as Flagyl twice daily for the next 10 days. She is to call her primary care doctor tomorrow to obtain an outpatient wound consult as well as referral to orthopedics. If at any point she has fevers worsening pain increased erythema she will return to the ER and likely then be admitted for IV antibiotics. Departure - Departure Disposition: 01 Home, Self Care Clinical Impression: Osteomyelitis of toe of right foot, Cellulitis of foot Condition: Stable Record reviewed to determine appropriate education?: Yes Follow-Up: Aj Chen DO [Primary Care Provider] - Jama Hoskins MD [Provider Admit Priv/Credential] - Prescriptions: metroNIDAZOLE [Flagyl] 500 mg PO BID #20 tablet cephALEXin [Keflex] 500 mg PO Q6H #40 Comments: Nani unfortunately you have an infection in your bone on the toe of your right foot. This infection has now spread to the skin of your foot. The infection in the bone may ultimately require an amputation of the toe. Ideally we would have you seen by an orthopedic surgeon. We are going to try you on outpatient oral antibiotics. Please take the cephalexin 4 times a day for 10 days. Also take the Flagyl twice a day for the next 10 days. Please soak your foot in warm [place] salt bath twice a day. Pat dry and cover the toe and wound with antibiotic ointment. If at any point you are having increasing pain, increasing redness fevers please return immediately to the emergency department. At that time you would need to be admitted for IV antibiotics. Please discuss this ED visit with your primary care doctor. You should receive a referral from her to the wound clinic as well as to the orthopedic surgeons.
[2021-02-01 20:37] LABS: ALBUMIN 3.7 g/dL (3.2-5.5); ALBUMIN/GLOBULIN RATIO 1.2 (1.0-2.2); BILIRUBIN,TOTAL 0.5 mg/dL (0.2-1.0); CREATININE 0.9 mg/dL (0.4-1.0); POTASSIUM 3.8 mmol/L (3.5-5.0); TOTAL PROTEIN 6.7 g/dL (6.7-8.2)
--- NOTE | 2021-02-01 21:03 | XRAY Report ---
PROCEDURE: Foot 3 View RT INDICATIONS: ? osteo ring toe TECHNIQUE: 3 views of the foot were acquired. COMPARISON: 06/29/2018. FINDINGS: Bones: There are erosive changes within the fourth distal phalanx with evaluation limited due to fle xion of the distal interphalangeal joint. Elsewhere, no definite fracture or dislocation. No other ar eas of discrete erosions or periosteal reaction. There is mild degeneration of the interphalangeal shalonda ints. No suspicious bony lesions. Soft tissues: There is soft tissue swelling of the fourth toe distally. No suspicious soft tissue carmen cifications. IMPRESSION: 1. Erosive changes within the fourth distal phalanx with associated soft tissue swelling likely repre sents osteomyelitis. Reviewed by: Rivas Llamas MD on 02/01/2021 9:01 PM PDT Approved by: Rivas Llamas MD on 02/01/2021 9:01 PM PDT Station ID: [id number]
[2021-02-01 21:11] LABS: BILIRUBIN,URINE NEGATIVE (NEGATIVE); GLUCOSE, URINE (UA) NEGATIVE (NEGATIVE); KETONES,URINE (UA) NEGATIVE (NEGATIVE); LEUKOCYTE ESTERASE, URINE NEGATIVE (NEGATIVE); NITRITE,URINE NEGATIVE (NEGATIVE); OCCULT BLOOD,URINE NEGATIVE (NEGATIVE); PROTEIN,URINE NEGATIVE (NEGATIVE); UROBILINOGEN,URINE 0.2 (NORMAL) E.U./dL (NORMAL)
[2021-02-01 21:13] LABS: CLARITY,URINE CLEAR (CLEAR)
[2021-02-01 21:20] LABS: BACTERIA,URINE Few /HPF (None Seen); RBC,URINE 0-5 /HPF (0-5); SQUAMOUS EPITHELIAL CELL,UR FEW Squamous (<= Few); WBC,URINE 0-3 /HPF (0-5)
[2021-02-01 21:22] VITALS: BP 150/90
[2021-02-01] MEDS ORDERED: metroNIDAZOLE 250 MG TABLET PO STA (22:01)
[2021-02-01] MEDS ORDERED: cephALEXin 250 MG CAPSULE PO STA (22:01)
--- NOTE | 2021-02-01 22:01 | CONSULTATION NOTE ---
Referring Provider Name of Referring Provider:: SALVATORE Hunt Consult Date: 02/01/21 Chief Complaint - Chief Complaint Chief Complaint: Right Foot Pain History of Present Illness - History Obtained From History obtained from: Patient Exam Limitations: None - History of Present Illness HPI Comment/Other: Patient is a 65-year-old female with a past medical history of type 2 diabetes mellitus, CKD, peripheral neuropathy, hypertension and hyperlipidemia. She has a history of a traumatic injury to the right foot resulting in multiple broken bones and since then has had some neuropathic changes. Patient states that for at least a month or so she has had some swelling and deformity of the fourth toe of the right foot. Currently it is flexed at the DIP joints and curled under the foot. She states that about 4 days ago she started to notice some changes including redness at the top of the foot as well as some pus drainage. She presented to the emergency room for further evaluation where work-up included x-ray consistent with osteomyelitis, a normal WBC count, normal vital signs, mildly elevated ESR 34, mildly elevated CRP at 1.4. Remainder of work-up was reassuring and essentially normal. I was asked to evaluate the patient for hospital admission for osteomyelitis and cellulitis of the right foot. In addition, during the decision-making process between me and the emergency room provider we did discuss transferring the patient to another facility because at this point this hospital is currently lacking MRI capability or orthopedic surgery consultation until Saturday of next week. Orthopedic surgery was consulted at [facility] for consideration of transfer and the feeling was that at this point because the patient is not septic or otherwise acutely ill, that broad-spectrum IV antibiotics could be attempted first and transfer can be reconsidered if the patient were to decline clinically. Patient herself was however not very enthusiastic about being admitted to the hospital so consultation was requested to further aid and disposition of this patient. Of note, the patient has a very long allergy list making antibiotic selection for outpatient therapy somewhat challenging. 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 : reports: None HEENT: reports: None Psych: reports: Depression Musculoskeletal: reports: Osteoarthritis Derm: reports: None MRSA Hx?: No - Past Surgical History General: reports: Hiatal hernia repair /OVERNIGHT ASSOCIATE: reports: section, Tubal ligation - Family & Social History Family History: Mother: Diabetes, Type 2, Father: Hypertension Living arrangement: At home Living Situation: Alone Social History Notes: Although she currently lives alone, her daughter is with her in the emergency room and states that she will stay with her for a few days and if necessary bring her mother to stay with her until she receives adequate medical treatment and is safe to go back home alone. - Substance History Use: Uses substance without health or social issues: NONE - POLST Patient has POLST: No Meds/Allgy - Home Medications Home Medications: Ambulatory Orders Medication Instructions Recorded Confirmed Gabapentin 100 mg PO DAILY 09/16/18 02/01/21 Albuterol Sulfate [Albuterol 2 puffs INH Q4H PRN 30 Days #2 09/20/18 02/01/21 Sulfate Hfa] [email or web address] Atorvastatin [Lipitor] 20 mg ORAL QPM 30 Days #30 tablet 09/20/18 02/01/21 lisinopriL [Lisinopril] 10 mg PO DAILY 30 Days #30 tablet 09/20/18 02/01/21 metFORMIN [Glucophage] 1,000 mg PO BID 30 Days #60 tablet 09/20/18 02/01/21 glipiZIDE [Glucotrol] 5 mg PO DAILY 02/01/21 02/01/21 - Allergies Allergies/Adverse Reactions: Allergies Allergy/AdvReac Type Severity Reaction Status Date / Time ampicillin [Ampicillin] Allergy Intermediate Rash Verified 02/01/21 19:08 morphine Allergy Intermediate Rash Verified 02/01/21 19:08 acetaminophen [From Percocet] Allergy Rash Verified 02/01/21 19:08 ciprofloxacin [From Cipro] Allergy Itching Verified 02/01/21 19:08 clindamycin Allergy Hives Verified 02/01/21 19:08 erythromycin base Allergy Nausea Verified 02/01/21 19:08 [From E-Mycin] oxycodone HCl * Allergy Rash Verified 02/01/21 19:08 [From Percocet] Penicillins Allergy Rash Verified 02/01/21 19:08 Sulfa (Sulfonamide Allergy Rash Verified 02/01/21 19:08 Antibiotics) tetracycline [Tetracycline] Allergy Rash Verified 02/01/21 19:08 Review of Systems - Constitutional Constitutional: denies: Fatigue, Fever, Chills, Weakness - Respiratory Respiratory: denies: SOB at rest - Gastrointestinal Gastrointestinal: reports: Poor appetite. denies: Abdominal pain, Abdominal distention, Constipation, Diarrhea, Change in bowel habits, Nausea, Vomiting - Musculoskeletal Musculoskeletal: reports: Other (Pain of the right foot) - Integumentary Integumentary: reports: Lesions, Other (Draining wound at the tip of the fourth toe of the right foot) - Neurological Neurological: reports: General weakness, Numbness, Pre-existing deficit (Pre- existing numbness to the right foot) Exam - Vital Signs Reviewed Vital Signs: Yes Vital Signs: Vital Signs x48h Temp Pulse Resp BP Pulse Ox 02/01/21 21:21 36.5 C 93 17 150/90 H 98 02/01/21 20:48 16 02/01/21 19:10 37.0 C 85 18 150/65 H 100 - Physical Exam General Appearance: positive: No acute distress Eyes Bilateral: positive: Normal inspection ENT: positive: ENT inspection nml Neck: positive: Nml inspection Respiratory: positive: Chest non-tender, No respiratory distress, Breath sounds nml Cardiovascular: positive: Regular rate & rhythm, No murmur, No gallop Abdomen: positive: Tenderness (Mildly tender abdomen related to preexisting and previously diagnosed abdominal hernias) Back: positive: Nml inspection Skin: positive: Other (Skin exam is remarkable for mild erythema of pink discoloration of the lateral aspect of the dorsum of the right foot. Extending to about the proximal third of the foot. Associated with callus formation of the fourth toe at the plantar aspect with a mildly draining purulent wound without bleeding,) Extremities: positive: No pedal edema Neurologic/Psychiatric: positive: Oriented x3, CN's nml (2-12), Motor nml, Sensation nml Conclusion/Plan - Diagnosis Diagnosis: Right foot cellulitis with osteomyelitis of the fourth toe - Plan Plan: X-ray evident suggestive of osteomyelitis given the chronicity of the patient's wound I suspect this is probably chronic osteomyelitis with acute cellulitis. Given her risk factors including type 2 diabetes, I do think it would be reasonable to admit the patient under broad-spectrum antibiotics and this plan was offered to the patient however she did elect to discharge home on oral antibiotics despite specific instructions to monitor for symptoms indicating reason to return to ER or seek urgent medical attention. This includes but is not limited to fever, nausea vomiting, systemic symptoms, spreading of the redness of the rash, worsening foot pain. Patient states she will stay with her daughter and they will keep a close eye on her foot and monitor her temperature and if anything worsens they will return. Otherwise, she is going to be discharged home on oral Keflex and Flagyl as well as given a referral to the wound care clinic. She will likely need to be set up with an outpatient pest control worker for definitive management of the chronic osteomyelitis.. - Lab Results Lab results reviewed: Yes Fish Bones: 02/01/21 20:15 02/01/21 20:15 - Diagnostic Imaging Results Diagnostic Imaging Results: positive: Final report reviewed
== END 2021-02-01 22:14 | disposition home or self-care (01) ==
LOC: ED 19:04
DX: E11.69 Type 2 diabetes mellitus with other specified complication (principal); M86.9 Osteomyelitis, unspecified; L03.115 Cellulitis of right lower limb; I12.9 Hypertensive chronic kidney disease with stage 1 through stage 4 chronic kidney disease, or unspecified chronic kidney disease; E11.22 Type 2 diabetes mellitus with diabetic chronic kidney disease; N18.9 Chronic kidney disease, unspecified; Z79.84 Long term (current) use of oral hypoglycemic drugs; E78.5 Hyperlipidemia, unspecified; F17.200 Nicotine dependence, unspecified, uncomplicated; Z88.1 Allergy status to other antibiotic agents; Z88.0 Allergy status to penicillin; Z88.2 Allergy status to sulfonamides
CPT/HCPCS: 36415; 73630; 80053; 81001; 83605; 85025; 85651; 86140; 87040; 87070; 87181; 87205; 99284; A9270; 87086

== ENCOUNTER 2021-02-01 19:27 | Outpatient (CLI) | payer MEDICAID | END 2021-02-01 23:59 | disposition home or self-care (01) | LOC: LAB.N 19:27 | PROVIDERS: ATTEND Emergency Medicine | DX: L02.611 Cutaneous abscess of right foot (principal) | CPT/HCPCS: 87070; 87077; 87181; 87205 ==

== ENCOUNTER 2021-02-09 13:15 | Outpatient (CLI) | payer MEDICAID ==
--- NOTE | 2021-02-10 11:25 | XRAY Report ---
PROCEDURE: Foot 3 View RT INDICATIONS: ACUTE OSTEOMYELITIS OF R ANKLE AND FOOT TECHNIQUE: 3 views of the foot were acquired. COMPARISON: 02/01/2021 FINDINGS: Bones: No fractures or dislocations. There are erosive changes redemonstrated within the fourth dis melodie phalanx with associated mild periosteal reaction which appear slightly increased compared to the prior study. The findings are again suggestive of osteomyelitis. There is also irregularity in the th ird distal phalanx with increased lucencies. The findings are also suggestive of osteomyelitis. There is mild degeneration of the interphalangeal joints. Soft tissues: There is soft tissue swelling of the fourth toe redemonstrated as well as mild swellin g of the third toe. Suspicious soft tissue calcifications. No discrete tissue gas. No tibiotalar join t effusion. Achilles tendon appears intact. IMPRESSION: 1. Increased erosive changes and periosteal reaction within the fourth distal phalanx again likely re presenting osteomyelitis. 2. Bony irregularity with indistinct lucencies in the third distal phalanx also suggestive of osteomy elitis. Reviewed by: Rivas Llamas MD on 02/10/2021 11:23 AM PDT Approved by: Rivas Llamas MD on 02/10/2021 11:23 AM PDT Station ID: [id number]
== END 2021-02-09 23:59 | disposition home or self-care (01) ==
LOC: DI.N 13:15
PROVIDERS: ATTEND Physician Assistant
DX: M86.171 Other acute osteomyelitis, right ankle and foot (principal)

== ENCOUNTER 2021-03-14 14:39 | Outpatient (CLI) | payer MEDICAID ==
[2021-03-14 18:09] LABS: BASOPHILS # (AUTO) 0.1 10^3/uL (0.0-0.1); BASOPHILS % (AUTO) 0.5 %; EOSINOPHILS # (AUTO) 0.2 10^3/uL (0.0-0.7); EOSINOPHILS % (AUTO) 1.9 %; HCT - HEMATOCRIT 47.1 % (37.0-47.0); HGB - HEMOGLOBIN 14.8 g/dL (12.0-16.0); LYMPHOCYTES # (AUTO) 2.9 10^3/uL (1.5-3.5); LYMPHOCYTES % (AUTO) 26.2 %; MEAN CORPUSCULAR HEMOGLOBIN 31.2 pg (27.0-31.0); MEAN CORPUSCULAR HGB CONC 31.4 g/dL (32.0-36.0); MEAN CORPUSCULAR VOLUME 99.4 fL (81.0-99.0); MEAN PLATELET VOLUME 9.7 fL (7.9-10.8); MONOCYTES # (AUTO) 0.6 10^3/uL (0.0-1.0); MONOCYTES % (AUTO) 5.4 %; NEUTROPHILS # (AUTO) 7.2 10^3/uL (1.5-6.6); NEUTROPHILS % (AUTO) 65.5 %; PLT - PLATELET COUNT 249 10^3/uL (130-450); RED BLOOD COUNT 4.74 10^6/uL (4.20-5.40); RED CELL DISTRIBUTION WIDTH 14.3 % (12.0-15.0); WHITE BLOOD COUNT 11.1 x10^3/uL (4.8-10.8)
[2021-03-14 18:20] LABS: CREATININE,URINE 147.1 mg/dL; MICROALBUMIN,URINE 2.5 mg/dL (0-300.0)
[2021-03-14 18:33] LABS: ALBUMIN/GLOBULIN RATIO 1.1 (1.0-2.2); ALKALINE PHOSPHATASE 93 IU/L (42-121); ALT ALANINE AMINOTRANSFERASE 40 IU/L (10-60); AST ASPARTATE AMINOTRANSFERASE 29 IU/L (10-42); BILIRUBIN,TOTAL 0.7 mg/dL (0.2-1.0); BUN - BLOOD UREA NITROGEN 16 mg/dL (6-20); CALCIUM 9.4 mg/dL (8.5-10.3); CARBON DIOXIDE - CO2 28 mmol/L (21-32); CHLORIDE 95 mmol/L (101-111); CHOL/HDL RATIO 5.7 (<4.4); CHOLESTEROL 238 mg/dL; CREATININE 1.1 mg/dL (0.4-1.0); GFR - MDRD 50 (>89); GLUCOSE 412 mg/dL (70-100); HDL CHOLESTEROL 42 mg/dL; POTASSIUM 4.5 mmol/L (3.5-5.0); SODIUM 131 mmol/L (135-145); TOTAL PROTEIN 7.6 g/dL (6.7-8.2); TRIGLYCERIDES 446 mg/dL
[2021-03-14 19:11] LABS: LDL CHOLESTEROL,DIRECT 139 mg/dL; LDLD/HDL RATIO 3.3 (<4.4)
[2021-03-14 19:57] LABS: ESTIMATED AVERAGE GLUCOSE 166 mg/dL (70-100); HEMOGLOBIN A1c% 7.4 % (4.27-6.07)
== END 2021-03-14 23:59 | disposition home or self-care (01) ==
LOC: LAB.WCP 14:39
PROVIDERS: ATTEND Family Medicine
DX: E11.8 Type 2 diabetes mellitus with unspecified complications (principal)
CPT/HCPCS: 36415; 80053; 80061; 82043; 82570; 83036; 83721; 85025

== ENCOUNTER 2021-04-12 18:30 | Outpatient (CLI) | payer MEDICAID | END 2021-04-12 23:59 | disposition home or self-care (01) | LOC: LAB 18:30 | PROVIDERS: ATTEND Family Medicine | DX: R05 Cough (principal); Z20.822 Contact with and (suspected) exposure to COVID-19 ==

== ENCOUNTER 2021-06-02 06:30 | Day surgery (SDC) | payer MEDICARE, MEDICAID ==
[2021-06-02] MEDS ORDERED: LACTATED RINGERS 1,000 ML IV ONE (07:03)
[2021-06-02] MEDS ORDERED: MIDAZOLAM 2 MG/2 ML VIAL ONE (07:07)
[2021-06-02] MEDS ORDERED: PROPOFOL 500 MG/50 ML 500 MG/50 ML VIAL ONE (07:07)
--- NOTE | 2021-06-02 07:22 | HISTORY & PHYSICAL EXAMINATION ---
Chief Complaint - Chief Complaint Chief Complaint: here for colon cancer screening. History of Present Illness - History Obtained From Records Reviewed: yes History obtained from: pt Exam Limitations: none - History of Present Illness HPI Comment/Other: positive fit. occasional constipation. large reducible ventral hernia with bowel. 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 : reports: None HEENT: reports: None Psych: reports: Depression Musculoskeletal: reports: Osteoarthritis Derm: reports: None MRSA Hx?: No - Past Surgical History General: reports: Hiatal hernia repair /MIXING TUMBLER OPERATOR: reports: section, Tubal ligation - POLST Patient has POLST: No Meds/Allgy - Home Medications Home Medications: Ambulatory Orders Medication Instructions Recorded Confirmed Gabapentin 100 mg PO DAILY 09/16/18 06/01/21 Albuterol Sulfate [Albuterol 2 puffs INH Q4H PRN 30 Days #2 09/20/18 06/01/21 Sulfate Hfa] [email or web address] Atorvastatin [Lipitor] 20 mg ORAL QPM 30 Days #30 tablet 09/20/18 06/01/21 lisinopriL [Lisinopril] 10 mg PO DAILY 30 Days #30 tablet 09/20/18 06/01/21 metFORMIN [Glucophage] 1,000 mg PO BID 30 Days #60 tablet 09/20/18 06/01/21 glipiZIDE [Glucotrol] 5 mg PO DAILY 02/01/21 06/01/21 - Allergies Allergies/Adverse Reactions: Allergies Allergy/AdvReac Type Severity Reaction Status Date / Time ampicillin [Ampicillin] Allergy Intermediate Rash Verified 02/01/21 19:08 morphine Allergy Intermediate Rash Verified 02/01/21 19:08 acetaminophen [From Percocet] Allergy Rash Verified 02/01/21 19:08 ciprofloxacin [From Cipro] Allergy Itching Verified 02/01/21 19:08 erythromycin base Allergy Nausea Verified 02/01/21 19:08 [From E-Mycin] oxycodone HCl * Allergy Rash Verified 02/01/21 19:08 [From Percocet] Penicillins Allergy Rash Verified 02/01/21 19:08 Sulfa (Sulfonamide Allergy Rash Verified 02/01/21 19:08 Antibiotics) tetracycline [Tetracycline] Allergy Rash Verified 02/01/21 19:08 Review of Systems - Other Findings Other Findings: 10 pt ros as above otherwise unremarkable Exam - Vital Signs Reviewed Vital Signs: Yes Vital Signs: Vital Signs x48h Temp Pulse Resp BP Pulse Ox 06/02/21 06:45 36.2 C L 85 20 142/80 H 100 - Physical Exam General Appearance: positive: No acute distress, Alert Eyes Bilateral: positive: PERRL, EOMI ENT: positive: No signs of dehydration Neck: positive: No JVD Respiratory: positive: No respiratory distress, Other (decreased bilateral) Cardiovascular: positive: Regular rate & rhythm Abdomen: positive: Non-tender, No distention, Other (large reducible ventral hernia) Neurologic/Psychiatric: positive: Oriented x3 Conclusion/Plan - Problem List (1) Positive FIT (fecal immunochemical test) Conclusion/Plan: plan colonoscopy. parq held and consent obtained. referral to for ventral hernia. she feels it is getting worse and starting to cause some bowel problems.
--- NOTE | 2021-06-02 07:37 | ANESTHESIA ---
Pre-Anesthesia VS, & Labs - Diagnosis positive fit test - Procedure colonoscopy Vital Signs: Temp Pulse Resp BP Pulse Ox 36.2 C L 85 20 142/80 H 100 06/02/21 06:45 06/02/21 06:45 06/02/21 06:45 06/02/21 06:45 06/02/21 06:45 Height: 5 ft 6 in Weight (kg): 95 kg Body Mass Index: 33.7 BMI Classification: Obese - NPO >8 hours - Is Patient ?: No - Lab Results Current Lab Results: Laboratory Tests 06/02/21 07:00: POC Whole Bld Glucose 324 H Home Medications and Allergies Gabapentin 100 mg PO DAILY 09/16/18 glipiZIDE [Glucotrol] 5 mg PO DAILY 02/01/21 Allergies/Adverse Reactions: Allergies Allergy/AdvReac Type Severity Reaction Status Date / Time ampicillin [Ampicillin] Allergy Intermediate Rash Verified 02/01/21 19:08 morphine Allergy Intermediate Rash Verified 02/01/21 19:08 acetaminophen [From Percocet] Allergy Rash Verified 02/01/21 19:08 ciprofloxacin [From Cipro] Allergy Itching Verified 02/01/21 19:08 erythromycin base Allergy Nausea Verified 02/01/21 19:08 [From E-Mycin] oxycodone HCl * Allergy Rash Verified 02/01/21 19:08 [From Percocet] Penicillins Allergy Rash Verified 02/01/21 19:08 Sulfa (Sulfonamide Allergy Rash Verified 02/01/21 19:08 Antibiotics) tetracycline [Tetracycline] Allergy Rash Verified 02/01/21 19:08 Anes History & Medical History - Anesthetic History Anesthesia Complications: reports: No previous complications Family history of Anesthesia Complications: Denies Family history of Malignant Hyperthermia: Denies - Medical History Cardiovascular: reports: Hypertension Pulmonary: reports: Asthma, Pneumonia Gastrointestinal: reports: Hiatal hernia Urinary: reports: None Neuro: reports: None Musculoskeletal: reports: Osteoarthritis Endocrine/Autoimmune: reports: Type 2 diabetes, HyPOthyroidism Blood Disorders: reports: None Skin: reports: None Smoking Status: Current every day smoker - Surgical History General: reports: Hiatal hernia repair Gynecologic: reports: section, Tubal ligation Exam General: Alert, Oriented x3, Cooperative Dental: Dentures full Upper, Dentures full Lower, Other (edentulous) Mouth Openin Fingerbreadth Neck Mobility: Normal Mallampati classification: III Thyromental Distance: 4-6 cm Respiratory: Lungs clear Cardiovascular: Regular rate Extremities: Other (infection in right foot) Mental/Cognitive Status: Alert/Oriented X3 Cognitive Status: Within normal limits Plan Anesthesia Type: Total IV Consent for Procedure(s) Verified and Reviewed: Yes Code Status: Attempt Resuscitation ASA classification: 3-Severe systemic disease Is this case an emergency?: No
[2021-06-02] MEDS ORDERED: LACTATED RINGERS 700 ML IV ONE (08:28)
[2021-06-02 08:54] VITALS: BP 111/69
--- NOTE | 2021-06-02 15:05 | ANESTHESIA POST OP EVALUATION ---
Anesthesia Post Eval - Post Anesthesia Eval Vitals: Last Vital Signs Temp 36.4 C L 06/02/21 08:53 Pulse 81 06/02/21 08:53 Resp 20 06/02/21 08:53 BP 111/69 06/02/21 08:53 Pulse Ox 100 06/02/21 08:53 CV Function Including HR & BP: Stable Pain Control: Satisfactory Nausea & Vomiting: Negative Mental Status: Baseline Respiratory Status: Airway Patent Hydration Status: Satisfactory Anesthesia Complications: None
== END 2021-06-02 06:31 | disposition home or self-care (01) ==
LOC: SDS 06:30
PROVIDERS: ATTEND Surgery
PROC: 0DBM8ZZ Excision of Descending Colon, Via Natural or Artificial Opening Endoscopic (ICD-10-PCS; 2021-06-02)
PROC: 0DBL8ZZ Excision of Transverse Colon, Via Natural or Artificial Opening Endoscopic (ICD-10-PCS; principal; 2021-06-02 07:30)
DX: D12.2 Benign neoplasm of ascending colon (principal); D12.0 Benign neoplasm of cecum; D12.4 Benign neoplasm of descending colon; D12.3 Benign neoplasm of transverse colon; K63.5 Polyp of colon; E11.9 Type 2 diabetes mellitus without complications; E03.9 Hypothyroidism, unspecified; I10 Essential (primary) hypertension; J45.909 Unspecified asthma, uncomplicated; F17.200 Nicotine dependence, unspecified, uncomplicated; E66.9 Obesity, unspecified; Z68.33 Body mass index [BMI] 33.0-33.9, adult; K43.9 Ventral hernia without obstruction or gangrene; Z79.84 Long term (current) use of oral hypoglycemic drugs; Z79.899 Other long term (current) drug therapy; Z87.01 Personal history of pneumonia (recurrent)
CPT/HCPCS: 45380; 45385; J7120

== ENCOUNTER 2021-06-21 08:00 | Outpatient (CLI) | payer MEDICARE, MEDICAID ==
[2021-06-21 18:31] LABS: BASOPHILS # (AUTO) 0.1 10^3/uL (0.0-0.1); BASOPHILS % (AUTO) 0.5 %; EOSINOPHILS # (AUTO) 0.3 10^3/uL (0.0-0.7); EOSINOPHILS % (AUTO) 2.4 %; HCT - HEMATOCRIT 43.7 % (37.0-47.0); HGB - HEMOGLOBIN 13.8 g/dL (12.0-16.0); LYMPHOCYTES # (AUTO) 2.5 10^3/uL (1.5-3.5); LYMPHOCYTES % (AUTO) 23.5 %; MEAN CORPUSCULAR HEMOGLOBIN 30.9 pg (27.0-31.0); MEAN CORPUSCULAR HGB CONC 31.6 g/dL (32.0-36.0); MEAN CORPUSCULAR VOLUME 97.8 fL (81.0-99.0); MEAN PLATELET VOLUME 9.4 fL (7.9-10.8); MONOCYTES # (AUTO) 0.6 10^3/uL (0.0-1.0); MONOCYTES % (AUTO) 5.7 %; NEUTROPHILS # (AUTO) 7.2 10^3/uL (1.5-6.6); NEUTROPHILS % (AUTO) 67.5 %; PLT - PLATELET COUNT 241 10^3/uL (130-450); RED BLOOD COUNT 4.47 10^6/uL (4.20-5.40); RED CELL DISTRIBUTION WIDTH 14.7 % (12.0-15.0); WHITE BLOOD COUNT 10.6 x10^3/uL (4.8-10.8)
[2021-06-21 18:38] LABS: ALBUMIN 4.1 g/dL (3.2-5.5); ALBUMIN/GLOBULIN RATIO 1.4 (1.0-2.2); BILIRUBIN,TOTAL 0.9 mg/dL (0.2-1.0); CALCIUM 9.2 mg/dL (8.5-10.3); CREATININE 1.2 mg/dL (0.4-1.0); POTASSIUM 3.7 mmol/L (3.5-5.0); TOTAL PROTEIN 7.1 g/dL (6.7-8.2)
[2021-06-21 20:41] LABS: ESTIMATED AVERAGE GLUCOSE 237 mg/dL (70-100); HEMOGLOBIN A1c% 9.9 % (4.27-6.07)
== END 2021-06-21 23:59 ==
LOC: LAB.WCP 08:00
PROVIDERS: ATTEND Family Medicine
DX: E11.8 Type 2 diabetes mellitus with unspecified complications (principal)
CPT/HCPCS: 36415; 80053; 83036; 85025

== ENCOUNTER 2021-06-29 13:04 | Outpatient (CLI) | payer MEDICARE, MEDICAID ==
--- NOTE | 2021-06-29 17:07 | XRAY Report ---
PROCEDURE: Foot 3 View RT INDICATIONS: CELLULITIS RIGHT 3RD TOE TECHNIQUE: 3 views of the foot were acquired. COMPARISON: 02/09/2021. FINDINGS: Bones: No definite fractures or dislocations. Evaluation of the distal phalanges is limited due to f lexion at the distal interphalangeal joints. There is suggestion of increased sclerosis within the th ird and fourth distal phalanges in the areas of reduced the visualized lucency. No definite bony eros ions identified on the current study. There is mild degeneration of the interphalangeal joints. Soft tissues: There is soft tissue swelling of the fourth and third toes distally. No suspicious soft tissue calcifications. IMPRESSION: 1. Limited study due to flexion at the distal interphalangeal joints. 2. No definite bony erosions identified on the current study. Lucencies suggestive of osteomyelitis o n the prior study appear increased in density suggestive of healing. Reviewed by: Rivas Llamas MD on 06/29/2021 4:05 PM [facility] Approved by: Rivas Llamas MD on 06/29/2021 4:05 PM [facility] Station ID: [id number]
== END 2021-06-29 13:05 | disposition home or self-care (01) ==
LOC: DI.N 13:04
PROVIDERS: ATTEND Family Medicine
DX: L03.031 Cellulitis of right toe (principal); Z87.39 Personal history of other diseases of the musculoskeletal system and connective tissue

== ENCOUNTER 2021-09-25 08:00 | Outpatient (CLI) | payer MEDICARE, MEDICAID | END 2021-09-25 23:59 | disposition home or self-care (01) | LOC: LAB.N 08:00 | PROVIDERS: ATTEND Nurse Practitioner | DX: L03.019 Cellulitis of unspecified finger (principal) | CPT/HCPCS: 87070; 87077; 87205 ==

== ENCOUNTER 2021-10-10 01:33 | Emergency (ER) | payer MEDICARE, MEDICAID ==
[2021-10-10 02:10] LABS: BILIRUBIN,URINE NEGATIVE (NEGATIVE); GLUCOSE, URINE (UA) 500 mg/dL (NEGATIVE); KETONES,URINE (UA) TRACE mg/dL (NEGATIVE); LEUKOCYTE ESTERASE, URINE TRACE (NEGATIVE); NITRITE,URINE POSITIVE (NEGATIVE); OCCULT BLOOD,URINE LARGE (NEGATIVE); PH,URINE 5.5 PH (5.0-7.5); PROTEIN,URINE 100 mg/dL (NEGATIVE); UROBILINOGEN,URINE 1 (NORMAL) E.U./dL (NORMAL)
[2021-10-10 02:20] LABS: BACTERIA,URINE Few /HPF (None Seen); CLARITY,URINE SL. CLOUDY (CLEAR); RBC,URINE TNTC /HPF (0-5); SQUAMOUS EPITHELIAL CELL,UR MOD Squamous (<= Few)
[2021-10-10] MEDS ORDERED: CEPHALEXIN 250 MG Prepack 8 CAP BOTTLE PO STA (02:32)
--- NOTE | 2021-10-10 02:35 | ED Physician Documentation ---
PD HPI FEMALE - Stated complaint Stated Complaint: PEEING BLOOD - Chief complaint Chief Complaint: UTI - History obtained from History obtained from: Patient - History of Present Illness Timing - onset: Last night Timing - duration: Hours Timing - details: Abrupt onset, Still present Associated symptoms: Dysuria, Urinary frequency, Hematuria Similar symptoms before: Diagnosis (UTI) Recently seen: Not recently seen - Additional information Additional information: 66-year-old female with history of hypertension COPD type 2 diabetes and prior urinary tract infections has developed urinary tract infection symptoms with urinary urgency frequency dysuria and hematuria. She has some chronic low back pain and this is worse with some radiation to the right groin. She has not had nausea or vomiting. Review of Systems Constitutional: denies: Fever Respiratory: reports: Cough (similar to always) GI: denies: Vomiting, Constipation, Diarrhea : reports: Dysuria, Frequency, Hematuria Skin: denies: Rash Musculoskeletal: reports: Back pain. 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 : None HEENT: None Psych: Depression Musculoskeletal: Osteoarthritis Derm: None Other Past Medical History: Neuropathy - Past Surgical History Past Surgical History: Yes General: Hiatal hernia repair /CHIEF OPERATOR LOCK TENDER: section, Tubal ligation - Present Medications Home Medications: Ambulatory Orders Medication Instructions Recorded Confirmed Gabapentin 100 mg PO DAILY 09/16/18 10/10/21 Albuterol Sulfate [Albuterol 2 puffs INH Q4H PRN 30 Days #2 09/20/18 10/10/21 Sulfate Hfa] hfa.aer.ad Atorvastatin [Lipitor] 20 mg ORAL QPM 30 Days #30 tablet 09/20/18 10/10/21 lisinopriL [Lisinopril] 10 mg PO DAILY 30 Days #30 tablet 09/20/18 10/10/21 metFORMIN [Glucophage] 1,000 mg PO BID 30 Days #60 tablet 09/20/18 10/10/21 glipiZIDE [Glucotrol] 5 mg PO DAILY 02/01/21 10/10/21 cephALEXin [Keflex] 500 mg PO Q6H #28 cap 10/10/21 - Allergies Allergies/Adverse Reactions: Allergies Allergy/AdvReac Type Severity Reaction Status Date / Time ampicillin [Ampicillin] Allergy Intermediate Rash Verified 10/10/21 01:42 morphine Allergy Intermediate Rash Verified 10/10/21 01:42 acetaminophen [From Percocet] Allergy Rash Verified 10/10/21 01:42 ciprofloxacin [From Cipro] Allergy Itching Verified 10/10/21 01:42 erythromycin base Allergy Nausea Verified 10/10/21 01:42 [From E-Mycin] oxycodone HCl * Allergy Rash Verified 10/10/21 01:42 [From Percocet] Penicillins Allergy Rash Verified 10/10/21 01:42 Sulfa (Sulfonamide Allergy Rash Verified 10/10/21 01:42 Antibiotics) tetracycline [Tetracycline] Allergy Rash Verified 10/10/21 01:42 - Social History Does the pt smoke?: Yes Smoking Status: Current every day smoker Does the pt drink ETOH?: Yes Does the pt have substance abuse?: No - Immunizations Immunizations are current?: Yes - POLST Patient has POLST: No PD ED PE NORMAL - Vitals Vital signs reviewed: Yes (hypertensive) - General General: Alert and oriented X 3, No acute distress, Well developed/nourished - HEENT HEENT: Atraumatic, PERRL, EOMI - Neck Neck: Supple, no meningeal sign - Cardiac Cardiac: RRR, No murmur - Respiratory Respiratory: No respiratory distress, Clear bilaterally - Abdomen Abdomen: Soft, Non tender - Back Back: No CVA TTP, No spinal TTP, Other (mild tendernes to the right lower lumbar area with extension into the sciatic notch. ) - Derm Derm: Normal color, Warm and dry, No rash - Extremities Extremities: No deformity, No edema - Neuro Neuro: Alert and oriented X 3, service desk lead 2-12 intact, No motor deficit, No sensory deficit, Normal speech Eye Opening: Spontaneous Motor: Obeys Commands Verbal: Oriented GCS Score: 15 - Psych Psych: Normal mood, Normal affect Results - Vitals Vitals: Vital Signs - 24 hr 10/10/21 10/10/21 01:35 03:15 Temperature 36.4 C L 36.2 C L Heart Rate 89 80 Respiratory 18 18 Rate Blood Pressure 146/70 H 117/71 O2 Saturation 97 96 Oxygen O2 Source Room air - Labs Labs: Laboratory Tests 10/10/21 01:50 Urine Color LT RED Urine Clarity SL. CLOUDY Urine pH 5.5 Ur Specific Cornish 1.025 Urine Protein 100 H Urine Glucose (UA) 500 H Urine Ketones TRACE Urine Occult Blood LARGE H Urine Nitrite POSITIVE H Urine Bilirubin NEGATIVE Urine Urobilinogen 1 (NORMAL) Ur Leukocyte Esterase TRACE H Urine RBC TNTC H Urine WBC 11-25 H Ur Squamous Epith Cells MOD Squamous H Urine Bacteria Few Ur Microscopic Review INDICATED Urine Culture Comments NOT INDICATED PD MEDICAL DECISION MAKING - ED course Complexity details: reviewed results, re-evaluated patient, considered differential, d/w patient ED course: 66-year-old female with a prior history of urinary tract infection has symptoms again of urinary tract infection and she is administered Keflex orally. She has symptoms of sciatica and she is treated for this as well with dexamethasone and Toradol. Departure - Departure Disposition: Home, Self Care Clinical Impression: UTI (urinary tract infection) Qualifiers: Urinary tract infection type: acute cystitis Hematuria presence: with hematuria Qualified Code(s): N30.01 - Acute cystitis with hematuria Sciatica Qualifiers: Laterality: right Qualified Code(s): M54.31 - Sciatica, right side Condition: Stable Instructions: ED Sciatica, ED UTI Cystitis Female Follow-Up: Aj Chen DO [Provider Admit Priv/Credential] - Prescriptions: cephALEXin [Keflex] 500 mg PO Q6H #28 cap Comments: Nani today looks like you have another urinary tract infection. I have E scribed some Keflex to the SARS marker placed in [place]. Discharge Date/Time: 10/10/21 03:18
[2021-10-10] MEDS ORDERED: CHERRY SYRUP 10 ML UDC PO ONE (02:41)
[2021-10-10] MEDS ORDERED: KETOROLAC 60 MG/2 ML VIAL IM STA (02:41)
[2021-10-10] MEDS ORDERED: DEXAMETHASONE 10 MG/ML VIAL PO STA (02:41)
[2021-10-10 03:24] VITALS: BP 117/71
== END 2021-10-10 03:18 | disposition home or self-care (01) ==
LOC: ED 01:33
DX: N30.01 Acute cystitis with hematuria (principal); M54.31 Sciatica, right side; I10 Essential (primary) hypertension; E11.9 Type 2 diabetes mellitus without complications; Z79.84 Long term (current) use of oral hypoglycemic drugs; F17.200 Nicotine dependence, unspecified, uncomplicated
CPT/HCPCS: 81001; 96372; 99282; 99283; A9270; 81003; 87086

== ENCOUNTER 2021-11-25 08:00 | Outpatient (CLI) | payer MEDICARE, MEDICAID | END 2021-11-27 16:48 | disposition home or self-care (01) | LOC: LAB.N 08:00 | PROVIDERS: ATTEND Registered Nurse | DX: R06.03 Acute respiratory distress (principal); Z20.822 Contact with and (suspected) exposure to COVID-19 ==

== ENCOUNTER 2022-03-30 08:00 | Outpatient (CLI) | payer MEDICARE, MEDICAID | END 2022-03-30 08:01 | disposition home or self-care (01) | LOC: LAB.N 08:00 | PROVIDERS: ATTEND Family Medicine | DX: N39.0 Urinary tract infection, site not specified (principal) | CPT/HCPCS: 87086; 87181 ==

== ENCOUNTER 2022-12-26 13:49 | Outpatient (CLI) | payer MEDICARE, MEDICAID ==
[2022-12-26 17:47] LABS: BASOPHILS % (AUTO) 0.4 %; EOSINOPHILS # (AUTO) 0.2 10^3/uL (0.0-0.7); EOSINOPHILS % (AUTO) 2.7 %; HCT - HEMATOCRIT 40.5 % (37.0-47.0); HGB - HEMOGLOBIN 12.6 g/dL (12.0-16.0); LYMPHOCYTES # (AUTO) 1.9 10^3/uL (1.5-3.5); LYMPHOCYTES % (AUTO) 28.1 %; MEAN CORPUSCULAR HEMOGLOBIN 30.6 pg (27.0-31.0); MEAN CORPUSCULAR HGB CONC 31.1 g/dL (32.0-36.0); MEAN CORPUSCULAR VOLUME 98.3 fL (81.0-99.0); MEAN PLATELET VOLUME 9.5 fL (7.9-10.8); MONOCYTES # (AUTO) 0.4 10^3/uL (0.0-1.0); MONOCYTES % (AUTO) 5.5 %; NEUTROPHILS # (AUTO) 4.4 10^3/uL (1.5-6.6); PLT - PLATELET COUNT 192 10^3/uL (130-450); RED BLOOD COUNT 4.12 10^6/uL (4.20-5.40); RED CELL DISTRIBUTION WIDTH 15.2 % (12.0-15.0); WHITE BLOOD COUNT 6.9 x10^3/uL (4.8-10.8)
[2022-12-26 17:55] LABS: ESTIMATED AVERAGE GLUCOSE 272 mg/dL (70-100); HEMOGLOBIN A1c% 11.1 % (4.27-6.07)
[2022-12-26 18:06] LABS: ALBUMIN 3.8 g/dL (3.2-5.5); ALBUMIN/GLOBULIN RATIO 1.3 (1.0-2.2); ALKALINE PHOSPHATASE 67 IU/L (42-121); ALT ALANINE AMINOTRANSFERASE 17 IU/L (10-60); AST ASPARTATE AMINOTRANSFERASE 19 IU/L (10-42); BILIRUBIN,TOTAL 0.9 mg/dL (0.2-1.0); BUN - BLOOD UREA NITROGEN 17 mg/dL (6-20); CARBON DIOXIDE - CO2 25 mmol/L (21-32); CHLORIDE 108 mmol/L (101-111); CHOL/HDL RATIO 3.7 (<4.4); CHOLESTEROL 152 mg/dL; GFR - MDRD 55 (>89); GLUCOSE 260 mg/dL (70-100); HDL CHOLESTEROL 41 mg/dL; LDL CHOLESTEROL,CALCULATED 91 mg/dL; LDL/HDL RATIO 2.2 (<4.4); POTASSIUM 3.9 mmol/L (3.5-5.0); SODIUM 139 mmol/L (135-145); TOTAL PROTEIN 6.8 g/dL (6.7-8.2); TRIGLYCERIDES 101 mg/dL; VLDL CHOLESTEROL 20 mg/dL
[2022-12-26 18:11] LABS: THYROID STIMULATING HORMONE 1.8 uIU/mL (0.34-5.60)
== END 2022-12-26 13:50 | disposition home or self-care (01) ==
LOC: LAB.N 13:49
PROVIDERS: ATTEND Nurse Practitioner Family
DX: I10 Essential (primary) hypertension (principal); E11.8 Type 2 diabetes mellitus with unspecified complications; E78.5 Hyperlipidemia, unspecified; E03.9 Hypothyroidism, unspecified
CPT/HCPCS: 36415; 80053; 80061; 82043; 82570; 83036; 83721; 84443; 85025

== ENCOUNTER 2023-02-21 08:00 | Outpatient (CLI) | payer MEDICARE, MEDICAID ==
--- NOTE | 2023-02-21 20:34 | XRAY Report ---
PROCEDURE: Hand 3 View RT INDICATIONS: RIGHT HAND PAIN TECHNIQUE: 3 views of the hand(s) acquired. COMPARISON: None. FINDINGS: Bones: No acute fractures or dislocations. No suspicious bony lesions. Generalized osteopenia. Mult ifocal joint space narrowing is seen with subchondral sclerosis and marginal osteophyte formation. No definite focal osseous erosion. Soft tissues: No suspicious soft tissue calcifications or masses. IMPRESSION: Moderate osteoarthrosis. No acute osseous abnormality. If symptoms persist or there is continued clin ical concern, further evaluation with MRI or CT may be helpful. Reviewed by: Garrett Hamilton MD on 02/21/2023 8:33 PM PDT Approved by: Garrett Hamilton MD on 02/21/2023 8:33 PM PDT Station ID: [id number]
== END 2023-02-21 23:59 | disposition home or self-care (01) ==
LOC: DI.WOS 08:00
PROVIDERS: ATTEND Physician Assistant Surgical
DX: M19.041 Primary osteoarthritis, right hand (principal)

== ENCOUNTER 2023-06-04 13:24 | Outpatient (CLI) | payer MEDICARE, MEDICAID ==
[2023-06-04 18:13] LABS: CALCIUM 9.2 mg/dL (8.5-10.3); CREATININE 1.1 mg/dL (0.6-1.3); POTASSIUM 3.6 mmol/L (3.5-4.5)
[2023-06-04 18:36] LABS: ESTIMATED AVERAGE GLUCOSE 246 mg/dL (70-100); HEMOGLOBIN A1c% 10.2 % (4.27-6.07)
== END 2023-06-04 13:25 | disposition home or self-care (01) ==
LOC: LAB.N 13:24
PROVIDERS: ATTEND Nurse Practitioner Family
DX: E11.8 Type 2 diabetes mellitus with unspecified complications (principal)
CPT/HCPCS: 36415; 80048; 83036

== ENCOUNTER 2023-07-27 03:30 | Outpatient (CLI) | payer MEDICARE, MEDICAID | END 2023-07-27 23:59 | disposition EMS.NT | LOC: EMS 03:30 | DX: Z03.89 Encounter for observation for other suspected diseases and conditions ruled out (principal) ==

== ENCOUNTER 2023-07-28 16:46 | Outpatient (CLI) | payer MEDICARE, MEDICAID | END 2023-07-28 23:59 | disposition EMS.NT | LOC: EMS 16:46 | DX: R06.02 Shortness of breath (principal) ==

== ENCOUNTER 2023-07-28 17:41 | Emergency (ER) | payer MEDICARE, MEDICAID ==
[2023-07-28] MEDS ORDERED: BENZONATATE 100 MG CAPSULE PO STA (18:06)
[2023-07-28] MEDS ORDERED: HYDROcod/ACETAM 5/325 MG TABLET PO STA (18:06)
--- NOTE | 2023-07-28 18:07 | ED Physician Documentation ---
PD HPI CHEST PAIN - Stated complaint Stated Complaint: COUGH/SOA/SIDE PX - Chief complaint Chief Complaint: Resp - History obtained from History obtained from: Patient, Family - Additional information Additional information: 2 nights ago she fell and hit her left chest wall on the ground. Is her second fall in a month but before that had not fallen in quite some time. She has severe left rib pain. No other injuries. PD PAST MEDICAL HISTORY - Past Medical History Cardiovascular: Hypertension, High cholesterol Respiratory: Asthma, Pneumonia Neuro: Other Endocrine/Autoimmune: Type 2 diabetes, HyPOthyroidism GI: Hiatal hernia CHIEF II DISPATCHER: None : None HEENT: None Psych: Depression Musculoskeletal: Osteoarthritis Derm: None - Past Surgical History Past Surgical History: Yes General: Hiatal hernia repair /CHIEF II DISPATCHER: section, Tubal ligation - Present Medications Home Medications: Ambulatory Orders Medication Instructions Recorded Confirmed Gabapentin 100 mg PO DAILY 09/16/18 10/10/21 Albuterol Sulfate [Albuterol 2 puffs INH Q4H PRN 30 Days #2 09/20/18 10/10/21 Sulfate Hfa] hfa.aer.ad Atorvastatin [Lipitor] 20 mg ORAL QPM 30 Days #30 tablet 09/20/18 10/10/21 lisinopriL [Lisinopril] 10 mg PO DAILY 30 Days #30 tablet 09/20/18 10/10/21 metFORMIN [Glucophage] 1,000 mg PO BID 30 Days #60 tablet 09/20/18 10/10/21 glipiZIDE [Glucotrol] 5 mg PO DAILY 02/01/21 10/10/21 cephALEXin [Keflex] 500 mg PO Q6H #28 cap 10/10/21 Azithromycin [Zithromax] 1 tab PO DAILY #4 tab 07/28/23 Benzonatate [Tessalon] 200 mg PO TID PRN #20 cap 07/28/23 Cefpodoxime Proxetil [Vantin] 2 tab PO Q12H #20 tablet 07/28/23 HYDROcod/ACETAM 5/325 [Isabel 5/325] 1 - 2 tab PO Q6H PRN #15 tablet 07/28/23 - Allergies Allergies/Adverse Reactions: Allergies Allergy/AdvReac Type Severity Reaction Status Date / Time ampicillin [Ampicillin] Allergy Intermediate Rash Verified 10/10/21 01:42 morphine Allergy Intermediate Rash Verified 10/10/21 01:42 acetaminophen [From Percocet] Allergy Rash Verified 10/10/21 01:42 ciprofloxacin [From Cipro] Allergy Itching Verified 10/10/21 01:42 erythromycin base Allergy Nausea Verified 10/10/21 01:42 [From E-Mycin] oxycodone HCl * Allergy Rash Verified 10/10/21 01:42 [From Percocet] Penicillins Allergy Rash Verified 10/10/21 01:42 Sulfa (Sulfonamide Allergy Rash Verified 10/10/21 01:42 Antibiotics) tetracycline [Tetracycline] Allergy Rash Verified 10/10/21 01:42 - Social History Does the pt smoke?: No Smoking Status: Never smoker Does the pt drink ETOH?: Yes Does the pt have substance abuse?: No - Immunizations Immunizations are current?: Yes - POLST Patient has POLST: No PD ED PE NORMAL - Vitals Vital signs reviewed: Yes - General General: Alert and oriented X 3, No acute distress, Other (Comfortable at rest but winces with motion. Laying on her right side with the left side up.) - HEENT HEENT: PERRL, EOMI - Neck Neck: Supple, no meningeal sign, No bony TTP - Cardiac Cardiac: RRR, No murmur - Respiratory Respiratory: No respiratory distress, Other (Diffuse left chest wall tenderness without crepitance. Clear lungs.) - Abdomen Abdomen: Non tender - Neuro Neuro: Alert and oriented X 3 Eye Opening: Spontaneous Motor: Obeys Commands Verbal: Oriented GCS Score: 15 Results - Vitals Vitals: Vital Signs - 24 hr 07/28/23 07/28/23 17:48 20:06 Temperature 36.7 C Heart Rate 115 H 101 H Respiratory 18 18 Rate Blood Pressure 123/61 102/58 L O2 Saturation 95 93 Oxygen O2 Source Room air - Labs Labs: Laboratory Tests 07/28/23 17:55 Nasal Adenovirus (PCR) NOT DETECTED Nasal B. parapertussis DNA (PCR) NOT DETECTED Nasal Coronavir 229E PCR NOT DETECTED Nasal Coronavir HKU1 PCR NOT DETECTED Nasal Coronavir NL63 PCR NOT DETECTED Nasal Coronavir OC43 PCR NOT DETECTED Nasal Enterovir/Rhinovir PCR NOT DETECTED Nasal Influenza B PCR NOT DETECTED Nasal Influenza A PCR NOT DETECTED Nasal Parainfluen 1 PCR NOT DETECTED Nasal Parainfluen 2 PCR NOT DETECTED Nasal Parainfluen 3 PCR NOT DETECTED Nasal Parainfluen 4 PCR NOT DETECTED Nasal RSV (PCR) NOT DETECTED Nasal B.pertussis DNA PCR NOT DETECTED Nasal C.pneumoniae (PCR) NOT DETECTED Jacob Human Metapneumo PCR NOT DETECTED Nasal M.pneumoniae (PCR) NOT DETECTED Nasal SARS-CoV-2 (PCR) NOT DETECTED - Rads (name of study) CT chest Relevant Findings:: Final report received, EMP independent interpretation of test PD Medical Decision Making - ED course ED course: 68-year-old woman with cough and rib pain after a fall. Went over to CT for evaluation for potential rib fracture and my "wet read" demonstrates no rib fracture but she has an extensive left basilar pneumonia. She was reexamined 8:39 PM and she appears well and nontoxic with good room air saturations. Antibiotic choice was difficult due to multiple allergies but she has taken cephalosporins and a Z-Jimmy in the past ordered cefpodoxime and azithromycin. Subsequent formal read of radiologist also suggested 2 rib fractures as well as multiple incidental findings which were discussed with patient and the need for follow-up imaging for reevaluation of her lungs and liver/adrenal were discussed with patient and daughter at the bedside as well as discussed in her discharge instructions. Departure - Departure Disposition: 01 Home, Self Care Clinical Impression: Pneumonia Qualifiers: Pneumonia type: due to unspecified organism Laterality: left Lung location: lower lobe of lung Qualified Code(s): J18.9 - Pneumonia, unspecified organism Rib fracture Qualifiers: Encounter type: initial encounter Rib fracture type: multiple ribs Fracture type: closed Laterality: left Qualified Code(s): S22.42XA - Multiple fractures of ribs, left side, initial encounter for closed fracture Condition: Good Record reviewed to determine appropriate education?: Yes Instructions: ED Pneumonia Adult Prescriptions: HYDROcod/ACETAM 5/325 [Isabel 5/325] 1 - 2 tab PO Q6H PRN #15 tablet PRN Reason: Pain Benzonatate [Tessalon] 200 mg PO TID PRN #20 cap PRN Reason: Cough Cefpodoxime Proxetil [Vantin] 2 tab PO Q12H #20 tablet Azithromycin [Zithromax] 1 tab PO DAILY #4 tab Comments: I sent 2 prescriptions electronically to [facility]. Call your doctor to arrange a follow-up appointment, make the next available appointment. In the interim, return anytime if worse or if new symptoms develop. Radiologist thought you did have two minor rib fractures and recommends Repeat imaging of your chest, arrange with your primary doctor. Also possible adrenal adenoma and liver disease, also to be discussed with your primary doctor. I am prescribing a short course of narcotic pain medication for you. These are potentially dangerous and addictive medications that should be used carefully. These medications may constipate you. Take an hwlo-lox-qyltzdb stool softener (docusate) twice daily with plenty of water while taking these medications. If you go 24 hours without a bowel movement, take flur-tti-ssocwrg miralax, per package instructions. Do not drink or drive while taking these medications. If you received narcotic or sedating medications while in the emergency department, do not drive for 24 hours. Store this medication in a safe, secure place and out of reach of children. It is a violation of federal law to give or sell this medication to another person or to use in a manner other than prescribed. The ED will not refill narcotic prescriptions, including prescriptions lost or stolen. To dispose of unwanted medications: 1. [facility] provides a drop box for medication in pill form only (no liquids) 8:00 am to 4:30 p.m. Saturday-Saturday in the lobby of the [facility], [address] [place] [address]. Empty pills into ziplock bag before disposal. Call [phone] for information. 2.[employer] is a free service available to all [facility] residents. Go to [email or web address] Note that many narcotic pain relievers also contain Tylenol/acetaminophen. Please ensure that your total dose of acetaminophen from all sources does not exceed 3 g (3000 mg) per day. CT Chest Read: IMPRESSION: Consolidation in the left lower lobe. Centrilobular nodules, mild, and right lower lobe. These are likely infectious/inflammatory. No pneumothorax or pleural effusions. There are also mildly enlarged hilar mediastinal lymph nodes which may be reactive. Consider future imaging surveillance to assess for resolution. Mild fat stranding in the anterior lower mediastinum without fluid collection, possibly a contusion or fat necrosis. Attention on follow-up. Possible nondisplaced buckle fractures of the anterior left fourth and fifth ribs Moderately lobulated contour the liver partially seen, possibly representing chronic liver disease. Suspected left adrenal adenoma, correlate with laboratory testing to determine functional status. Forms: PCP List
[2023-07-28 18:50] LABS: B. PARAPERTUSSIS- RESP PCR PAN NOT DETECTED; B. PERTUSSIS- RESP PCR PANEL NOT DETECTED; C. PNEUMONIAE- RESP PCR PANEL NOT DETECTED; CORONAVIRUS 229E-RESP PCR NOT DETECTED; CORONAVIRUS HKU1-RESP PCR NOT DETECTED; CORONAVIRUS NL63-RESP PCR NOT DETECTED; CORONAVIRUS OC43-RESP PCR NOT DETECTED; HUMAN METAPNEUMOVIRUS NOT DETECTED; INFLUENZA A- RESP PCR PANEL NOT DETECTED; INFLUENZA B - RESP PCR PANEL NOT DETECTED; M. PNEUMONIAE- RESP PCR PANEL NOT DETECTED; PARAINFLUENZA VIRUS 1 NOT DETECTED; PARAINFLUENZA VIRUS 2 NOT DETECTED; PARAINFLUENZA VIRUS 3 NOT DETECTED; PARAINFLUENZA VIRUS 4 NOT DETECTED; RHINOVIRUS/ENTEROVIRUS NOT DETECTED; RSV- RESP PCR PANEL NOT DETECTED; SARS-CoV-2 -RESP PCR PANEL NOT DETECTED
[2023-07-28] MEDS ORDERED: CEFPODOXIME PROXETIL 100 MG TABLET PO STA (20:37)
[2023-07-28] MEDS ORDERED: AZITHROMYCIN 250 MG TABLET PO STA (20:37)
--- NOTE | 2023-07-28 20:55 | CT Report ---
PROCEDURE: Chest WO INDICATIONS: chest wall inj TECHNIQUE: A CT scan of the chest was performed. Intravenous contrast media was not administered. Images were re corded and evaluated at appropriate window settings. Reformats: axial MIP of the chest, coronal and s agittal. For radiation dose reduction, the following was used: automated exposure control, adjustment of mA and/or kV according to patient size. COMPARISON: Radiograph 04/20/2020 FINDINGS: Image quality: Diagnostic Lungs and pleura:Dense consolidation is seen in the left lower lobe. No drainable pleural effusions. Mild centrilobular nodules are also seen in the dependent portions of the right lower lobe. No pneumo thorax. Mediastinum, heart, and esophagus: Normal heart size. There are coronary calcifications. Mildly enlar ged mediastinal hilar lymph nodes are present, for example right paratracheal lymph node measures 1.1 cm in short axis (09/16) there are atherosclerotic calcifications. No pericardial effusion. Incidentally noted focal fat stranding in the lower anterior mediastinum, without drainable fluid col lection. Chest wall and thyroid: Thyroid is unremarkable. Chest wall is unremarkable. Upper abdomen: Moderately lobulated contour the liver partially seen. No gross abnormality on these n oncontrast images. Possible left adrenal adenoma. Correlate with laboratory testing to determine func tional status. Bones: Degenerative changes. There may be nondisplaced buckle fractures of the left anterior fourth a nd fifth ribs IMPRESSION: Consolidation in the left lower lobe. Centrilobular nodules, mild, and right lower lobe. These are li sher infectious/inflammatory. No pneumothorax or pleural effusions. There are also mildly enlarged hi lar mediastinal lymph nodes which may be reactive. Consider future imaging surveillance to assess for resolution. Mild fat stranding in the anterior lower mediastinum without fluid collection, possibly a contusion o r fat necrosis. Attention on follow-up. Possible nondisplaced buckle fractures of the anterior left fourth and fifth ribs Moderately lobulated contour the liver partially seen, possibly representing chronic liver disease. S uspected left adrenal adenoma, correlate with laboratory testing to determine functional status. Reviewed by: Jakob Hernandez MD on 07/28/2023 8:54 PM PST Approved by: Jakob Hernandez MD on 07/28/2023 8:54 PM PST Station ID: [id number]
[2023-07-28] MEDS ORDERED: HYDROcod/ACET 5/325 Prepack 4 PO STA (21:02)
[2023-07-28 21:40] VITALS: BP 103/76; O2SAT 94
== END 2023-07-28 20:30 | disposition home or self-care (01) ==
LOC: ED 17:41
DX: S22.42XA Multiple fractures of ribs, left side, initial encounter for closed fracture (principal); W19.XXXA Unspecified fall, initial encounter; Z91.81 History of falling; I10 Essential (primary) hypertension; E11.9 Type 2 diabetes mellitus without complications; Z79.84 Long term (current) use of oral hypoglycemic drugs; J18.9 Pneumonia, unspecified organism; Z11.52 Encounter for screening for COVID-19
CPT/HCPCS: 71250; 87633; 99283; 99284; A9270

== ENCOUNTER 2023-08-22 13:04 | Outpatient (CLI) | payer MEDICARE, MEDICAID ==
--- NOTE | 2023-08-22 19:29 | XRAY Report ---
PROCEDURE: Ribs w/PA Chest 4+V BL INDICATIONS: MULTIPLE FX'S OF LEFT SIDED RIBS TECHNIQUE: 2 views of the ribs were acquired, along with a single view chest. COMPARISON: CT chest on 02/08/2024 FINDINGS: Surgical changes and devices: None. Bones and chest wall: The previously noted slight cortical buckling left anterior fourth and fifth r ibs are not well depicted radiographically. No pneumothorax. Lungs and pleura: Left lower lobe pulmonary infiltrate persists but is much improved compared to the prior CT. Right lung and pleural spaces are clear. Mediastinum: Mediastinal contours appear normal. Heart size is normal. IMPRESSION: Slight cortical buckling anterior left fourth and fifth ribs not well depicted radiographically. No e vidence of displaced fracture or pneumothorax. Left lower lobe pneumonia, much improved Reviewed by: Abraham Osborne MD on 08/22/2023 6:27 PM AKST Approved by: Abraham Osborne MD on 08/22/2023 6:27 PM AKST Station ID: [id number]
== END 2023-08-22 13:05 | disposition home or self-care (01) ==
LOC: DI.N 13:04
PROVIDERS: ATTEND Nurse Practitioner Family
DX: S22.42XA Multiple fractures of ribs, left side, initial encounter for closed fracture (principal); J44.9 Chronic obstructive pulmonary disease, unspecified; J18.9 Pneumonia, unspecified organism

== ENCOUNTER 2024-01-31 08:00 | Outpatient (CLI) | payer MEDICARE, MEDICAID ==
[2024-01-31 18:47] LABS: BILIRUBIN,URINE NEGATIVE (NEGATIVE); GLUCOSE, URINE (UA) >=1000 mg/dL (NEGATIVE); KETONES,URINE (UA) NEGATIVE (NEGATIVE); LEUKOCYTE ESTERASE, URINE MODERATE (NEGATIVE); NITRITE,URINE NEGATIVE (NEGATIVE); OCCULT BLOOD,URINE LARGE (NEGATIVE); PROTEIN,URINE 30 mg/dL (NEGATIVE); UROBILINOGEN,URINE 0.2 (NORMAL) E.U./dL (NORMAL)
[2024-01-31 18:57] LABS: BACTERIA,URINE Moderate /HPF (None Seen); CLARITY,URINE CLOUDY (CLEAR); SQUAMOUS EPITHELIAL CELL,UR FEW Squamous (<= Few); WBC,URINE >25 /HPF (0-5)
== END 2024-01-31 23:59 | disposition home or self-care (01) ==
LOC: LAB.WCP 08:00
PROVIDERS: ATTEND Nurse Practitioner Family
DX: R30.0 Dysuria (principal)
CPT/HCPCS: 81001; 87077; 87086; 87181

== ENCOUNTER 2024-02-03 10:57 | Outpatient (CLI) | payer MEDICARE, MEDICAID ==
[2024-02-03 18:02] LABS: BASOPHILS # (AUTO) 0.1 10^3/uL (0.0-0.1); BASOPHILS % (AUTO) 0.7 %; EOSINOPHILS # (AUTO) 0.2 10^3/uL (0.0-0.7); HCT - HEMATOCRIT 40.8 % (37.0-47.0); HGB - HEMOGLOBIN 12.1 g/dL (12.0-16.0); LYMPHOCYTES # (AUTO) 1.9 10^3/uL (1.5-3.5); LYMPHOCYTES % (AUTO) 23.1 %; MEAN CORPUSCULAR HEMOGLOBIN 30.5 pg (27.0-31.0); MEAN CORPUSCULAR HGB CONC 29.7 g/dL (32.0-36.0); MEAN CORPUSCULAR VOLUME 102.8 fL (81.0-99.0); MEAN PLATELET VOLUME 9.7 fL (7.9-10.8); MONOCYTES # (AUTO) 0.5 10^3/uL (0.0-1.0); MONOCYTES % (AUTO) 5.4 %; NEUTROPHILS # (AUTO) 5.7 10^3/uL (1.5-6.6); NEUTROPHILS % (AUTO) 68.6 %; PLT - PLATELET COUNT 209 10^3/uL (130-450); RED BLOOD COUNT 3.97 10^6/uL (4.20-5.40); RED CELL DISTRIBUTION WIDTH 15.3 % (12.0-15.0); WHITE BLOOD COUNT 8.4 x10^3/uL (4.8-10.8)
[2024-02-03 18:12] LABS: BUN - BLOOD UREA NITROGEN 26 mg/dL (6-20); CALCIUM 9.8 mg/dL (8.5-10.3); CARBON DIOXIDE - CO2 29 mmol/L (21-32); CHLORIDE 103 mmol/L (101-111); CHOL/HDL RATIO 4.8 (<4.4); CHOLESTEROL 176 mg/dL; CREATININE 1.2 mg/dL (0.6-1.3); GFR - MDRD 45 (>89); GLUCOSE 326 mg/dL (74-104); HDL CHOLESTEROL 37 mg/dL; LDL CHOLESTEROL,CALCULATED 105 mg/dL; LDL/HDL RATIO 2.8 (<4.4); POTASSIUM 4.3 mmol/L (3.5-4.5); SODIUM 137 mmol/L (135-145); TRIGLYCERIDES 172 mg/dL; VLDL CHOLESTEROL 34 mg/dL
[2024-02-03 18:23] LABS: THYROID STIMULATING HORMONE 5.06 uIU/mL (0.34-5.60)
[2024-02-03 22:58] LABS: ESTIMATED AVERAGE GLUCOSE 151 mg/dL (70-100); HEMOGLOBIN A1c% 6.9 % (4.27-6.07)
== END 2024-02-03 10:58 | disposition home or self-care (01) ==
LOC: LAB.N 10:57
PROVIDERS: ATTEND Nurse Practitioner Family
DX: E11.8 Type 2 diabetes mellitus with unspecified complications (principal); E78.5 Hyperlipidemia, unspecified; E03.9 Hypothyroidism, unspecified; I10 Essential (primary) hypertension
CPT/HCPCS: 36415; 80048; 80061; 83036; 83721; 84443; 85025